=== PATIENT | female | born 1970 | race Caucasian/White ===

== ENCOUNTER 2021-09-22 17:43 | Emergency (ER) | payer BC, SELFPAY ==
[2021-09-22 17:43] VITALS: BP 165/82; PULSE 77; RESP 18; TEMP 35.7; O2SAT 97; BMI 44.2
--- NOTE | 2021-09-22 17:46 | RAD_ITS ---
STUDY: X-RAY - RIGHT SHOULDER REASON FOR EXAM: Female, 51 years old. FALL shoulder pain TECHNIQUE: 2 view(s) of the shoulder. COMPARISON: None. FINDINGS: Normal glenohumeral articulation. Normal acromioclavicular joint. Normal acromion. Normal humeral head and visualized proximal humerus. The soft tissue structures are unremarkable. Normal visualized pulmonary apex. RAD/Shoulder min 2 Views IMPRESSION: Normal x-ray examination of the shoulder. Electronically Signed: To Seo MD at 19:06 EST Tel , Service support ,
--- NOTE | 2021-09-22 18:21 | RAD_ITS ---
STUDY: X-RAY - RIGHT HUMERUS REASON FOR EXAM: Female, 51 years old. FALL TECHNIQUE: 2 view(s) of the humerus. COMPARISON: None. FINDINGS: Normal visualized humerus. There is no demonstrated fracture or osseous destructive process. There is no demonstrated soft tissue abnormality. RAD/Humerus min 2 Views IMPRESSION: Normal x-ray examination of the humerus. Electronically Signed: To Seo MD at 19:06 EST Tel , Service support ,
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
[2021-09-22 20:17] VITALS: PULSE 75; RESP 16; O2SAT 95
== END 2021-09-22 20:18 | disposition home or self-care (01) ==
PROVIDERS: Emergency Provider Emergency Medicine
DX: S40.021A Contusion of right upper arm, initial encounter (principal); W19.XXXA Unspecified fall, initial encounter
CPT/HCPCS: 73030; 73060; 99282

== ENCOUNTER → 2025-02-06 | Outpatient (CLI) | payer BC, SELFPAY ==
[2025-02-06 18:19] LABS: Absolute Lymphocyte Count 2.91 X10^3/uL (0.83-4.51); Absolute Neutrophil Count 4.9 X10^3/uL (2.0-7.7); Basophil# 0.04 X10^3/uL; Basophil% 0.5 % (0-1); Eosinophils% 2.3 % (0-5); Hematocrit 44.4 % (37-47); Hemoglobin 14.3 g/dL (12.0-15.0); Lymphocyte # 2.91 X10^3/ul (0.83-4.51); Lymphocyte % 33.7 % (19-41); Mean Corp Hgb Conc 32.2 g/dL (32-36); Mean Corpuscular Hgb 27.9 pg (27.0-32.0); Mean Corpuscular Volume 86.5 fL (81-99); Mean Platelet Vol. 10.3 fl (6.2-12.0); Monocyte# 0.56 X10^3/uL; Monocyte% 6.5 % (0-10); NRBC Flagged by Analyzer 0 % (0-5); Neutrophil % 56.8 % (47-70); Platelet Count 341 K/mm3 (150-450); RBC Distribution Width CV 13.4 % (11.6-14.6); RBC Distribution Width SD 42.1 fl (35.1-43.9); Red Blood Count 5.13 M/mm3 (4.2-5.4); White Blood Count 8.6 K/mm3 (4.4-11.0)
[2025-02-06 19:12] LABS: ALB/GLOB Ratio 1.2 RATIO (0.9-2.4); AST(SGOT) 17 U/L (<=31); Alanine Aminotransfer ALT/SGPT 18 U/L (<=34); Albumin, Serum 4.1 g/dL (3.5-5.0); Alkaline Phosphatase 81 U/L (35-104); Anion Gap 12 (5-15); BUN 12 mg/dL (4-19); BUN/Creat Ratio 18.9 RATIO (10-20); Carbon Dioxide 24.5 mmol/L (21.0-32.0); Chloride 101 mmol/L (98-108); Cholesterol 180 mg/dL (<=200); Creatinine, Serum 0.64 mg/dL (0.70-1.20); EST Glomerular Filtration Rate 104 (>60); Globulin 3.5 g/dL (2.2-4.2); Glucose 81 mg/dL (70-99); High Density Lipoprotein 52 mg/dL; Low Density Lipoprotein Calc. 104 mg/dL; Potassium 3.8 mmol/L (3.3-5.1); Protein, Total 7.7 g/dL (5.9-8.4); Sodium Level 138 mmol/L (133-145); Total Bilirubin 0.37 mg/dL (0.00-1.30); Triglycerides 122 mg/dL; Very Low Density Lipoprotein 24 mg/dL (5-40); cholesterol:hdl ratio screen 3.48
== END | disposition home or self-care (01) ==
LOC: MFPLAB 16:28
PROVIDERS: PCP Family Medicine; Referring Provider Family Medicine; Visit Provider Family Medicine
DX: R53.83 Other fatigue (principal); Z13.220 Encounter for screening for lipoid disorders; Z13.1 Encounter for screening for diabetes mellitus; K21.9 Gastro-esophageal reflux disease without esophagitis; R10.9 Unspecified abdominal pain
CPT/HCPCS: 36415; 80053; 80061; 84443; 85025

== ENCOUNTER → 2025-03-10 | Outpatient (CLI) | payer BC, SELFPAY ==
--- NOTE | 2025-03-10 15:00 | BI_ITS ---
EXAM: SCRN MAMM (CAD)W/LUZ ELENA BILAT DATE: 03/10/2025 CLINICAL HISTORY: F, Age 54 y/o , SCREENING BREAST CANCER RISK ASSESSMENT: Has not been calculated. TECHNIQUE: Bilateral screening digital breast tomosynthesis with 2D and 3D images. Computer aided detection. COMPARISON: Prior exam(s) dated 09/13/2019. FINDINGS: TISSUE DENSITY: The breast tissue is almost entirely fatty. Bilateral Breast Mammographic Findings: There are no suspicious masses, suspicious cluster of microcalcifications, architectural distortion or secondary signs of malignancy identified in either breast. Benign-appearing round microcalcifications are seen in both breasts. BI/SCRN MAMM (CAD)W/LUZ ELENA BILAT IMPRESSION: OVERALL FINAL ASSESSMENT: BIRADS 2 BENIGN FINDING RECOMMENDATION: Routine annual follow-up in 1 Year A letter with findings and recommendations will be mailed to the patient. Reading Location: [id number]
== END | disposition home or self-care (01) ==
LOC: OPBI 14:58
PROVIDERS: PCP Family Medicine; Referring Provider Family Medicine; Visit Provider Family Medicine
DX: Z12.31 Encounter for screening mammogram for malignant neoplasm of breast (principal)
CPT/HCPCS: 77063; 77067

== ENCOUNTER → 2025-03-23 | Outpatient (CLI) | payer BC, SELFPAY ==
[2025-03-23 13:17] LABS: HIV Nonreactive (Nonreactive); Hepatitis B Surface Antigen Nonreactive (Nonreactive); Hepatitis C Antibody Nonreactive (Nonreactive); Syphilis Antibodies Nonreactive (Nonreactive)
== END | disposition home or self-care (01) ==
LOC: MFPLAB 09:40
PROVIDERS: PCP Family Medicine; Referring Provider Family Medicine; Visit Provider Family Medicine
DX: Z00.00 Encounter for general adult medical examination without abnormal findings (principal)
CPT/HCPCS: 36415; 82652; 86703; 86780; 86803; 87340; 88175; G0145

== ENCOUNTER → 2025-04-19 | Outpatient (CLI) | payer BC, SELFPAY | END | disposition home or self-care (01) | LOC: LABSPEC 10:15 | PROVIDERS: PCP Family Medicine; Referring Provider Family Medicine; Visit Provider Family Medicine | DX: A59.01 Trichomonal vulvovaginitis (principal) | CPT/HCPCS: 87661 ==

== ENCOUNTER 2025-04-26 07:22 | Day surgery (SDC) | payer BC, SELFPAY ==
[2025-04-26] VITALS (8 sets, daily range): BP systolic 82–146; BP diastolic 40–81; PULSE 59–67; RESP 14–20; TEMP 36.3–36.4; O2SAT 96–98; BMI 48.8
--- OUTSIDE RECORDS SUMMARY | 2025-04-26 07:27 | XMS RPT_ITS | CCD ---
Author Organization [facility] Care Team Providers Care Speech Lang Path Name Role Phone LAI, EDER Unavailable Unavailable LAI, EDER Unavailable Unavailable LAI, EDER Unavailable Unavailable LAI, EDER Unavailable Unavailable PROVIDER, UNKNOWN Unavailable Unavailable PROVIDER, UNKNOWN Unavailable Unavailable PROVIDER, UNKNOWN Unavailable Unavailable Carmen Mcmahan Primary Care Provider [phone] Unavailable Primary Care Provider UnavailFrancesco Warner MD Primary Care Provider Francesco Diaz MD Primary Care Provider [phone] Francesco Diaz MD Primary Care Provider Beti Ivan MD Primary Care Provider Beti Ivan MD Attending Provider Beti Ivan MD Referring Provider Francesco Diaz MD Primary Care Provider Brooks ORTIZ.Yajaira LITTLEJOHN Unavailable Juany Whipple PA-C Unavailable [phone] Francesco Diaz MD Primary Care Provider [phone] SONIA VIZCARRA Referring Unavailable FRANCESCO DIAZ Primary Care Unavailable FRANCESCO DIAZ Referring Unavailable FRANCESCO DIAZ Primary Care Unavailable SONIA VIZCARRA Attending Unavailable FRANCESCO DIAZ Primary Care Unavailable Zhanna MONTE, Dr. Rubin Attending Provider [phone] Beti Ivan Referring Unavailable Marzena, Chalon Primary Care Unavailable Caryn Chao Attending Unavailable Caryn Chao Attending Unavailable Marzena, Chalon Referring Unavailable Marzena, Chalon Primary Care Unavailable Hipolito RM, Arti Attending Unavailable Marzena, Chalon Primary Care Unavailable MarzenaHannyon Attending Unavailable Marzena, Chalon Referring Unavailable Marzena, Chalon Primary Care Unavailable Marzena, Chalon Primary Care Unavailable Marzena, Chalon Attending Unavailable Marzena, Chalon Referring Unavailable RobotCaryn zuniga Attending Unavailable Marzena, Chalon Primary Care Unavailable Marzena, Chalon Primary Care Unavailable Marzena, Chalon Attending Unavailable Marzena, Chalon Referring Unavailable Marzena, Chalon Attending Unavailable Marzena, Chalon Referring Unavailable Marzena, Chalon Primary Care Unavailable Allergies Allergy Classification Reported Allergen(s) Allergy Type Date of Onset Reaction(s) Facility Pollen (2 sources) Pollen Substance Allergy 2 Other: See Comments [facility] (1 source) 05/07/17(+) MRSA WOUND; Translations: [05/07/17(+) MRSA WOUND] Propensity to adverse reactions (disorder) [facility] Repository (13 sources) Pollen; Translations: [POLLEN EXTRACTS] Drug Allergy 2 Other: See Comments [facility] Work Phone: (18 sources) Animal Dander; Translations: [ANIMAL DANDER] Drug Allergy 2 Other: See Comments [facility] Work Phone: Medications Current Medications Medication Drug Class(es) Dates Sig (Normalized) Sig (Original) cholecalciferol 0.25 mg oral capsule (2 sources) Vitamin D Start: 04-17-2025 take 1 capsule by mouth once daily Cholecalciferol (Vitamin D3) 250 mcg (10,000 unit) capsule Active 250 ug PO daily April 17, 2025 12:00am ergocalciferol 1.25 mg oral capsule (4 sources) Provitamin D2 Compound Start: 05-08-2024 take 1 capsule by mouth every week ergocalciferol 50,000 unit capsule (VITAMIN D2, DRISDOL) Indications: Vitamin D deficiency Take 1 capsule by mouth one time a week. 12 capsule 1 05/08/2024 Active ibuprofen 200 mg oral capsule (5 sources) Nonsteroidal Anti-inflammatory Drug take 1 capsule by mouth every six hours as needed Ibuprofen 200 mg cap Take 200 mg by mouth every 6 hours as needed. Active multivitamin tablet (5 sources) take 1 tablet by mouth once daily multivitamin tablet Take 1 tablet by mouth once daily. Active take 1 tablet by mouth once brent y multivitamin tablet Take 1 tablet by mouth once daily. 0 Active omeprazole 40 mg delayed release oral capsule (10 sources) Proton Pump Inhibitor Start: 01-23-2024 take 1 capsule by mouth once daily omeprazole (PRILOSEC) 40 mg capsule Indications: Gastroesophageal reflux disease without esophagitis Take 1 capsule by mouth once daily. 30 capsule 5 01/23/2024 Active Comment on above: Take 1 capsule by mo [facility] once daily. pantoprazole 40 mg delayed release oral tablet (2 sources) Proton Pump Inhibitor Start: 04-17-2025 take 1 tablet by mouth once daily Pantoprazole 40 mg tablet,delayed release (DR/EC) Active 40 mg PO daily April 17, 2025 12:00am phentermine hydrochloride 37.5 mg oral tablet (2 sources) Sympathomimetic Amine Anorectic Start: 04-17-2025 take 1 tablet by mouth once daily Phentermine 37.5 mg tablet Active 37.5 mg PO daily April 17, 2025 12:00am Completed/Discontinued Medications Medication Drug Class(es) Dates Sig (Normalized) Sig (Original) azelastine hydrochloride 0.137 mg/actuat / fluticasone propionate 0.05 mg/actuat metered dose nasal spray (6 sources) Corticosteroid, Histamine-1 Receptor Antagonist Start: 06-20-2023 End: 05-06-2024 take 1 spray(s) nasal route twice daily azelastine-flutica sone (DYMISTA) 137-50 mcg/spray spry Use 1 [place] in each nostril twice daily. 23 g 5 06/20/2023 05/06/2024 Discontinued Comment on above: Use 1 [place] in each nostril twice daily. meloxicam 15 mg oral tablet (5 sources) Nonsteroidal Anti-inflammatory Drug Start: 01-23-2024 End: 05-06-2024 take 1 tablet by mouth once daily at mealtime meloxicam (MOBIC) 15 mg tablet Take 1 tablet by mouth once daily. With food. 30 tablet 5 01/23/2024 05/06/2024 Discontinued Comment on above: [facility] With [facility]. montelukast 10 mg oral tablet (8 sources) Leukotriene Receptor Antagonist Start: 03-25-2023 End: 05-06-2024 take 1 tablet by mouth once daily at bedtime montelukast (SINGULAIR) 10 mg tablet Take 1 tablet by mouth daily at bedtime. 90 tablet 1 03/25/2023 05/06/2024 Discontinued Comment on above: Take 1 tablet by wilner daily at bedtime. Multivitamin capsule (1 source) take 1 capsule by mouth once daily Multivitamin capsule Take 1 capsule by mouth once daily. 0 Active Comment on above: Take 1 capsule by mo [facility] once daily. triamcinolone acetonide 0.001 mg/mg oral paste (8 sources) Corticosteroid Start: 03-25-2023 End: 05-06-2024 triamcinolone (KENALOG IN ORABASE) 0.1 % paste Apply to affected areas 2-3 times a day. 15 g 1 03/25/2023 05/06/2024 Discontinued Comment on above: Apply to affected ar eas 2-3 times a day. Problems Active Problems Problem Classification Problem Date Documented Date Episodic/Chronic Abdominal pain (2 sources) Left lower quadrant pain; Translations: [Left lower quadrant pain] 04-17-2025 Episodic Esophageal disorders (12 sources) Gastroesophageal reflux disease without esophagitis; Translations: [Gastro-esophageal reflux disease without esophagitis] Onset: 05-05-2024 01-23-2024 Chronic Malaise and fatigue (4 sources) Malaise and fatigue; Translations: [Other malaise] Onset: 05-07-2024 05-06-2024 Episodic Nutritional deficiencies (6 sources) Vitamin D deficiency; Translations: [Vitamin D deficiency, unspecified] Onset: 05-08-2024 05-08-2024 Chronic Other circulatory disease (1 source) Elevated blood-pressure reading without diagnosis of hypertension; Translations: [Elevated blood-pressure reading, without diagnosis of hypertension] 06-20-2023 Episodic Other infections; including parasitic (1 source) Trichomonal vulvovaginitis; Translations: [Trichomonal vulvovaginitis] Onset: 04-19-2025 Episodic Other nutritional; endocrine; and metabolic disorders (9 sources) Body mass index 40+ - severely obese; Translations: [Morbid (severe) obesity due to excess calories] Onset: 03-25-2023 03-25-2023 Chronic Other nutritional; endocrine; and metabolic disorders (7 sources) Severe obesity; Translations: [Morbid (severe) obesity due to excess calories] Onset: 03-25-2023 05-05-2024 Chronic Other nutritional; endocrine; and metabolic disorders (1 source) Morbid (severe) obesity due to excess calories; Translations: [Class 3 severe obesity with serious comorbidity and body mass index (BMI) of 45.0 to 49.9 in adult, unspecified obesity type (HCC)] Onset: 05-05-2024 Chronic Other nutritional; endocrine; and metabolic disorders (1 source) Body mass index (BMI) 45.0-49.9, adult; Translations: [Class 3 severe obesity with serious comorbidity and body mass index (BMI) of 45.0 to 49.9 in adult, unspecified obesity type (HCC)] Onset: 05-05-2024 Chronic Other nutritional; endocrine; and metabolic disorders (2 sources) Obesity; Translations: [Obesity, unspecified] 04-17-2025 Chronic Other screening for suspected conditions (not mental disorders or infectious disease) (20 sources) Patient encounter status; Translations: [Encounter for screening mammogram for malignant neoplasm of breast] Onset: 03-25-2023 03-25-2023 Episodic Other upper respiratory disease (14 sources) Seasonal allergy; Translations: [Other seasonal allergic rhinitis] Onset: 03-25-2023 03-25-2023 Chronic Residual codes; unclassified (2 sources) Family history of cancer of colon; Translations: [Family history of malignant neoplasm of digestive organs] 04-19-2025 Episodic Superficial injury; contusion (5 sources) Contusion of right upper arm, initial encounter; Translations: [Contusion of right upper extremity] 09-30-2021 Episodic Unclassified (3 sources) No additional problems on file Unclassified (1 source) Screening status; Translations: [Screening for chlamydial disease] Past or Other Problems Problem Classification Problem Date Documented Da te Episodic/Chronic Diseases of mouth; excluding dental (13 sources) Aphthous ulcer of mouth; Translations: [Recurrent oral aphthae] Onset: 03-25-2023 03-25-2023 Episodic Fracture of upper limb (9 sources) Closed fracture of right shoulder; Translations: [Fracture of right shoulder girdle, part unspecified, initial encounter for closed fracture] Onset: 12-11-2021 Resolved: 03-25-2023 12-11-2021 Episodic Other non-traumatic joint disorders (10 sources) Pain in right knee; Translations: [Pain in joint, lower leg] Onset: 05-05-2024 01-23-2024 Episodic Other non-traumatic joint disorders (1 source) Pain in left knee; Translations: [Pain in both knees, unspecified chronicity] Onset: 05-05-2024 Episodic Other skin disorders (15 sources) Mass of neck; Translations: [Localized swelling, mass and lump, neck] Onset: 03-25-2023 03-25-2023 Episodic Skin and subcutaneous tissue infections (3 sources) Cellulitis of abdominal wall; Translations: [Cellulitis of abdominal wall] Onset: 05-05-2017 Episodic Unclassified (5 sources) Patient encounter status; Translations: [Screening examination for STD (sexually transmitted disease)] 01-31-2025 Results Test Name Value Interpretation Reference Range Facility M8200.3000on 04-19-2025 M8200.3000 Trichomonas Vag DNA PCR Negative for Trichomonas vaginalis Normal [facility] Comment on above: Performed By: #### M 8200.3000 #### [facility] [address] [place], [address] Surgery Visit Reporton 04-17 Surgery Visit Report [facility] [address] [place] [address] OFFICE VISIT Date of Service: 04/17/25 MR#: [id number] Acct: [id number] Name: ADILENE KOO Rep #: [id number] : 1970 Provider: Dr. Caryn zuniga MD Age/Sex: 54/F Location: [facility] Status: Signed Intake Vital Signs 09/22/21 17:43 04/17/25 15:17 04/17/25 15:19 Height 5 ft 3 in 5 ft 3 in Weight: 284 lb BMI 50.3 BP 150/90 H Blood Pressure Location Rt brachial Position Sitting Respiration 16 Intake Visit Reasons: ADD EGD TO OA SCOPE Chief Complaint: EGD Department Manager Required: No Is patient in pain?: No Allergies animal dander Allergy (Mild, Verified 04/17/25 15:17) Other Medications ???Medication ???Instructions ???Recorded ???Confirmed ???Type cholecalciferol (vitamin D3) 250 250 mcg PO QDAY 04/17/25 04/17/25 History mcg (10,000 unit) capsule pantoprazole 40 mg tablet,delayed 40 mg PO QDAY 04/17/25 04/17/25 H istory release phentermine 37.5 mg tablet 37.5 mg PO QDAY 04/17/25 04/17/25 History Have you fallen in the past year?: No PFSH Medical History (Updated 04/19/25 @ 08:[address] Caryn Chao MD) Obesity LLQ abdominal pain Acid reflux Kidney stones Surgical History (Updated 04/17/25 @ 15:19 by Leanna Van) History of umbilical hernia repair S/P partial hysterectomy Social History (Updated 04/17/25 @ 15:19 by Leanna Van) Smoking Status: Never smoker alcohol intake: never HPI HPI HPI: 54-year-old female presents for EGD and colonoscopy. Patient states she has been on Protonix for the last 4 months denies any symptoms with that but before then was having burning up her esophagus. Patient has bowel movements daily denies any blood. Patient never had previous scope. Patient states she does get occasional left lower quadrant discomfort about once a week but describes it as a cramp that quickly resolves. Patient's dad did have colon cancer metastatic when found in his 70s, patient's dad also had prostate cancer, patient's mom had pancreatic cancer ROS General General: Yes weight change; No appetite, fatigue, colon cancer or breast cancer HEENT HEENT: Yes swollen glands; No difficulty swallowing, eye injury, eye surgery or hoarseness Endo Endocrine: No thyroid disease, diabetes mellitus, thyroid cancer, Hair loss, heat intolerance or cold intolerance Skin Skin: No rash or changing moles Musc Musculoskeletal: No back problems, arthritis, rheumatoid arthritis, gout or joint pain Cardio Cardiovascular: No murmur, pacemaker, heart disease, atrial fibrillation, high blood pressure, heart attack, heart stent, palpitations, shortness of breath with exertion or chest pain Psych Psychiatric: No depression, anxiety or hearing voices Resp Respiratory: No shortness of breath, No sleep apnea, No cough, No COPD, No asthma, No emphysema and No wheezing Gastro Gastrointestinal: Yes abdominal pain, No nausea or vomiting, No diarrhea, No constipation, No blood in stool, Yes acid reflux, No hemorrhoids, No ulcers, No gallbladder problem and No black,tarry stools Earl Hematologic: No blood thinners, No blood disorders, No bleeding, No anemia and No blood clots Neuro Neurologic: No numbness and No tingling Exam Const General: cooperative, healthy appearing, comfortable and no acute distress HENMT Head: normocephalic and atraumatic Neck Neck: supple Resp Effort Inspection: normal respiratory effort Cardio Rate: regular rate GI Inspection: non-distended Palpation: soft, no hernias and nontender Skin General: no rashes or lesions noted Neuro General: CN's II-XI intact bilaterally Extrem General: normal to inspection Psych Mental Status: mental status grossly normal Attitude: cooperative Assessment and Plan Assessment and Plan (1) Acid reflux: Status: Acute (2) Screening for malignant neoplasm of colon: Status: Acute (3) Family history of colon cancer in father: Status: Acute Plan Discussed with patient due to her family history of colon cancer we will plan for repeat colonoscopy in 5 years or less depending on initial colonoscopy. I have discussed the above with the patient. I have offered the patient esophagogastroduodenoscopy and colonoscopy for evaluation. I have explained the risks/benefits of the procedure and described the procedure. I have discussed the risks with the patient, including but not limited to: infection, bleeding, perforation of the GI tract requiring emergency surgery, inability to complete the procedure, injury to any internal organs, complications of anesthesia, etc. - the patient understands and agrees to proceed. I have answered all the patient's questions to the patient's satisfaction and the patient h (more content not included)... Normal [facility] PAP IG HPV HR APTIMAon 03-30 ADEQ Comment Normal . [facility] Comment on above: Order Comment: Speci men Comment: No. of containers..01 ThinPrep Vial Result Comment: Sati sfactory for evaluation. No endocervical component is identified. Partially obscuring thick areas are present. Performed By: #### L 500.4100, L500.4050, L100.0100, L501.9520 #### [facility] [address] [place], [address] COMM . Normal . [facility] Comment on above: Order Comment: Speci men Comment: No. of containers..01 ThinPrep Vial Performed By: #### L 500.4100, L500.4050, L100.0100, L501.9520 #### [facility] [address] [place], [place], [id number] COMMENT TNP Normal . [facility] Comment on above: Order Comment: Speci men Comment: No. of containers..01 ThinPrep Vial Result Comment: The Thin Prep(R) Orchid Hand was unable to read this specimen. Therefore a manual review was performed. Performed By: #### L 500.4100, L500.4050, L100.0100, L501.9520 #### [facility] [address] [place], [place], [id number] DIAG Comment Normal . [facility] Comment on above: Order Comment: Speci men Comment: No. of containers..01 ThinPrep Vial Result Comment: NEGA TIVE FOR INTRAEPITHELIAL LESION OR MALIGNANCY. Performed By: #### L 500.4100, L500.4050, L100.0100, L501.9520 #### [facility] [address] [place], [place], [id number] HPV APTIMA, HR Negative Normal Negative [facility] Comment on above: Order Comment: Speci men Comment: No. of containers..01 ThinPrep Vial Result Comment: This nucleic acid amplification test detects fourteen high- risk HPV types (16,18,31,33,35,39,45,51,52,56,58,59,66,68) without differentiation. Performed at: [address] [id number] Hr Consultant: Nuria Gil MD, Phone: [phone] Performed at: =[address] [id number] Hr Consultant: Nuria Gil MD, Phone: [phone] Performed By: #### L 500.4100, L500.4050, L100.0100, L501.9520 #### [facility] [address] [place], [address] PAPSMR Comment Normal . [facility] Comment on above: Order Comment: Speci men Comment: No. of containers..01 ThinPrep Vial Result Comment: The Pap smear is a screening test designed to aid in the detection of premalignant and malignant conditions of the uterine cervix. It is not a diagnostic procedure and should not be used as the sole means of detecting cervical cancer. Both false-positive and false-negative reports do occur. Performed By: #### L 500.4100, L500.4050, L100.0100, L501.9520 #### [facility] [address] [place], [address] PERFORM Comment Normal . [facility] Comment on above: Order Comment: Speci men Comment: No. of containers..01 ThinPrep Vial Result Comment: Valery Dias Account Retention Representative (ASCP) Performed By: #### L 500.4100, L500.4050, L100.0100, L501.9520 #### [facility] [address] [place], [address] Vitamin D 1,25-Dihydroxyon 0 03-28-2025 VIT D 1,25 DIHY 50.0 pg/mL Normal 24.8-81.5 [facility] Comment on above: Order Comment: Order Date: 02/17/25 Order Info: [id number] Result Comment: Perf ormed at: BN - [facility] [address] [id number] Hr Consultant: Shireen Gonzalez MD, Phone: [phone] Performed By: #### L 3300.0960 #### [facility] [address] [place], [place], [id number] Cervical or vagninal specime n microscopic examination by cytology stain (reported asOrdered By: Arti Mcmillan on 03-23-2025 Cytology report Cyto stain Doc (Cvx/Vag) Comment . [facility] Comment on above: The Pap smear is a s creening test designed to aid in thedetection of premalignant and malignant conditions of theuterine cervix. It is not a diagnostic procedure andshould not be used as the sole means of detecting cervicalcancer. Both false-positive and false-negative reports dooccur. Detection in cervical specim en of any of human papilloma virus (HPV) 16, 18, 31, 33,Ordered By: Arti Mcmillan on 03-23-2025 HPV 16+18+31+33+35+39+45+5 1+52+56+58+59+66+68 DNA Probe+sig amp Ql (Cvx) Negative Negative [facility] Comment on above: This nucleic acid am plification test detects fourteen high- risk HPV types (16,18,31,33,35,39,45,51,52,56,58,59,66,68)without differentiation.Performed at: - [facility] [id number] Director: Nuria Gil MD, Phone: [phone] at: =G - [facility] [id number] Director: Nuria Gil MD, Phone: [phone] HIVon 03-23-2025 HIV Non-Reactive Normal Nonreactive [facility] Comment on above: Result Comment: Non- Reactive Reactive Repeatedly reactive samples must be confirmed according to CDC recommended confirmatory algorithms. The subresults for either HIVAG or AHIV can be used as an aid in the selection of the confirmation algorithm for reactive samples. Send out specimens with Reactive results to [facility] for confirmation. Order the HIV antibody detection and differentiation: [id number] Performed By: #### L 509.8002, L3890.6301, L3890.6006, L3890.6102 #### [facility] [place], [address] Hepatitis C Antibodyon 03-23 Hepatitis C Ab Non-Reactive Normal Nonreactive [facility] Comment on above: Result Comment: Reac tive: Presumptive evidence of antibodies to HCV. Follow CDC recommendations for supplemental testing. Non-Reactive: Antibodies to HCV were not detected; does not exclude the possibility of exposure to HCV Reactive Results are presumptive evidence of antibodies to HCV. Follow CDC recommendations for supplemental testing. Order confirmation testing: HCV Quant by PCR testing - HCVPCR #[id number] Non Reactive: < 0.8 Equivocal: >/= 0.8 to < 1.0 Reactive: >/= 1.0 The CDC requires that a reactive/equivocal HCV antibody result be sent out for confirmation. HCV Quant by PCR testing. Performed By: #### L 500.4100, L500.4050, L100.0100, L501.9520 #### [facility] [address] [place], [address] L3890.6102on 03-23-2025 HEP B Surf Ag Non-Reactive Normal Nonreactive [facility] Comment on above: Result Comment: Reac tive: Presumptive evidence of HBV. Repeatedly reactive samples must be confirmed using a neutralization test ([facility] HBsAg Confirmatory Test) Non-Reactive: HBsAg not detected; does not exclude the possibility of exposure to HBV Performed By: #### L 500.4100, L500.4050, L100.0100, L501.9520 #### [facility] [address] [place], [place], [id number] Laboratory - CytologyOrdered By: Arti Mcmillan on 03-23-2025 Account Retention Representative Cyto stain Nom (Cvx/Vag) [ID] Comment . [facility] Comment on above: Ab Dias, Account Retention Representative (ASCP) Laboratory - Microbiology an d Antimicrobial susceptibilityOrdered By: Beti Ivan on 03-23-2025 HBV surface Ag Ql (S) Non-Reactive Nonreactive [facility] Comment on above: Reactive: Presumptiv e evidence of HBV. Repeatedly reactive samples must be confirmed using a neutralization test ([employer] HBsAg Confirmatory Test)Non-Reactive: HBsAg not detected; does not exclude the possibility of exposure to HBV Laboratory - Miscellaneous t estsOrdered By: rAti Mcmillan on 03-23-2025 Service comment (Unsp spec) [Interp] . . [facility] No Panel InformationOrdered By: Arti Mcmillan on 03-23-2025 Pap Smear Specimen Adequacy Comment . [facility] Comment on above: Satisfactory for aj luation. No endocervical component is identified.Partially obscuring thick areas are present. No Panel InformationOrdered By: Beti Ivan on 03-23-2025 HIV (1&2) Antibody Non-Reactive Nonreactive [facility] Comment on above: Non-ReactiveReactive Repeatedly reactive samples must be confirmed according to CDC recommended confirmatory algorithms. The subresults for either HIVAG or AHIV can be used as an aid in the selection of the confirmation algorithm for reactive samples.Send out specimens with Reactive results to [facility] for confirmation.Order the HIV antibody detection and differentiation: #[id number] Serum or plasma calcitriol m easurement (mass/volume)Ordered By: Beti Ivan on 03-23-2025 1,25-dihydroxyvitamin D3 [Mass/Vol] 50.0 pg/mL 24.8-81.5 [facility] Comment on above: Performed at: [address] [id number] Director: Shireen Gonzalez MD, Phone: [phone] Syphilis Antibodieson 2024 Syphilis Abs Non-Reactive Normal Nonreactive [facility] Comment on above: Performed By: #### L 509.8002, L3890.6301, L3890.6006, L3890.6102 #### [facility] [address] [place], [place], [id number] Breast imaging reportOrdered By: Ana Nieves on 03-13-2025 Study report [facility] Imaging Services [address] [place], [place] [address] SCRN MAMM (CAD)W/RONALDO BILAT MR#: [id number] Acct: [id number] Name: ADILENE KOO Rep #: [id number] : 1970 F 54 From: Jak Nieves DO PCP: Dr. Beti Ivan MD Status: REG CL I Study:SCRN MAMM (CAD)W/RONALDO BILAT Date of Exa m: 03/10/25 Exam# [id number] Ordering Dr: Kristie Ivan MD EXAM: SCRN MAMM (CAD)W/RONALDO BILAT DATE: 03/10/2025 CLINICAL HISTORY: F, Age 54 y/o , SCREENING BREAST CANCER RISK ASSESSMENT: Has not been calculated. TECHNIQUE: Bilateral screening digital breast tomosynthesis with 2D and 3D images. Computeraided detection. COMPARISON: Prior exam(s) dated 09/13/2019. FINDINGS: TISSUE DENSITY: The breast tissue is almost entirely fatty. Bilateral Breast Mammographic Findings: There are no suspicious masses, suspicious cluster of microcalcifications, architectural distortion or secondary signs of malignancy identified in either breast. Benign-appearing round microcalcifications are seen in both breasts. BI/SCRN MAMM (CAD)W/RONALDO BILAT IMPRESSION: OVERALL FINAL ASSESSMENT: BIRADS 2 BENIGN FINDING RECOMMENDATION: Routine annual follow-up in 1 Year A letter with findings and recommendations will be mailed to the patient. Reading Location: [facility] [facility] CC: Dr. Beti Ivan MD ~ Felt Machine Mechanic: Signed [facility] SCRN MAMM (CAD)W/RONALDO BILATo n 03-10-2025 SCRN MAMM (CAD)W/RONALDO BILAT [facility] Imaging Services [address] [place] [id number] SCRN MAMM (CAD)W/RONALDO BILAT MR#: [id number] Acct: [id number] Name: ADILENE KOO Rep #: [id number] : 1970 F 54 From: Ana Valentino PCP: Dr. Beti Ivan MD Status: REG CLI Study: SCRN MAMM (CAD)W/RONALDO BILAT Date of Exam: 07/27 Exam# [id number] Ordering Dr: Beti Ivan MD EXAM: SCRN MAMM (CAD)W/RONALDO BILAT DATE: 03/10/2025 CLINICAL HISTORY: F, Age 54 y/o , SCREENING BREAST CANCER RISK ASSESSMENT: Has not been calculated. TECHNIQUE: Bilateral screening digital breast tomosynthesis with 2D and 3D images. Computer aided detection. COMPARISON: Prior exam(s) dated 09/13/2019. FINDINGS: TISSUE DENSITY: The breast tissue is almost entirely fatty. Bilateral Breast Mammographic Findings: There are no suspicious masses, suspicious cluster of microcalcifications, architectural distortion or secondary signs of malignancy identified in either breast. Benign-appearing round microcalcifications are seen in both breasts. BI/SCRN MAMM (CAD)W/RONALDO BILAT IMPRESSION: OVERALL FINAL ASSESSMENT: BIRADS 2 BENIGN FINDING RECOMMENDATION: Routine annual follow-up in 1 Year A letter with findings and recommendations will be mailed to the patient. Reading Location: [facility] CC: Dr. Beti Ivan MD Felt Machine Mechanic: Signed Normal [facility] Absolute lymphocyte countOrd ered By: Beti Ivan on 02-06-2025 Lymphocytes Auto (Unsp spec) [#/Vol] 2.91 10*3/uL 0.83-4.51 [facility] Absolute neutrophil countOrd ered By: Beti Ivan on 02-06-2025 Neutrophils (Bld) [#/Vol] 4.9 10*3/uL 2.0-7.7 [facility] Anion gap in Serum or Plasma Ordered By: Beti Ivan on 02-06-2025 Anion gap [Moles/Vol] 12 mmol/L 5-15 [facility] Automated lymphocyte count a s percentage of total leukocytesOrdered By: Beti Ivan on 02-06-2025 Lymphocytes/100 WBC Auto (Unsp spec) 33.7 % 19-41 [facility] BUN/creatinine ratioOrdered By: Beti Ivan on 02-06-2025 Urea nitrogen/Creatinine [Mass ratio] 18.9 mg/mg 10-20 [facility] Basophil percentageOrdered B y: Beti Ivan on 02-06-2025 Basophils/100 WBC (Bld) 0.5 % 0-1 [facility] Bilirubin, totalOrdered By: Beti Ivan on 02-06-2025 Bilirubin [Mass/Vol] 0.37 mg/dL 0.00-1.30 [facility] CBC W/Diff, Automatedon 04-0 Absolute Lymph 2.91 X10 3/uL Normal 0.83-4.51 [facility] Comment on above: Performed By: #### L 500.4100, L500.4050, L100.0100, L501.9520 #### [facility] [address] [place], [address] Absolute Neut 4.9 X10 3/uL Normal 2.0-7.7 [facility] Comment on above: Performed By: #### L 500.4100, L500.4050, L100.0100, L501.9520 #### [facility] [address] [place], [address] Basophils/100 WBC (Bld) 0.5 % Normal 0-1 [facility] Comment on above: Performed By: #### L 500.4100, L500.4050, L100.0100, L501.9520 #### [facility] [address] [place], [address] Eosinophils/100 WBC (Bld) 2.3 % Normal 0-5 [facility] Comment on above: Performed By: #### L 500.4100, L500.4050, L100.0100, L501.9520 #### [facility] [address] [place], [address] Erythrocyte distribution width (RBC) [Ratio] 13.4 % Normal 11.6-14.6 [facility] Comment on above: Performed By: #### L 500.4100, L500.4050, L100.0100, L501.9520 #### [facility] [address] [place], [address] Hematocrit (Bld) [Volume fraction] 44.4 % Normal 37-47 [facility] Comment on above: Performed By: #### L 500.4100, L500.4050, L100.0100, L501.9520 #### [facility] [address] [place], [address] Hemoglobin (Bld) [Mass/Vol] 14.3 g/dL Normal 12.0-15.0 [facility] Comment on above: Performed By: #### L 500.4100, L500.4050, L100.0100, L501.9520 #### [facility] [address] [place], [address] IG% 0.200 Normal 0.0-0.9 [facility] Comment on above: Result Comment: IG% - Immature Granulocytes (promyelocytes, myelocytes and metamyelocytes) > 1% indicates that a LEFT SHIFT is Present. Performed By: #### L 500.4100, L500.4050, L100.0100, L501.9520 #### [facility] [address] [place], [address] Lymphocytes/100 WBC (Bld) 33.7 % Normal 19-41 [facility] Comment on above: Performed By: #### L 500.4100, L500.4050, L100.0100, L501.9520 #### [facility] [address] [place], [address] MCH (RBC) [Entitic mass] 27.9 pg Normal 27.0-32.0 [facility] Comment on above: Performed By: #### L 500.4100, L500.4050, L100.0100, L501.9520 #### [facility] [address] [place], [address] MCHC (RBC) [Mass/Vol] 32.2 g/dL Normal 32-36 [facility] Comment on above: Performed By: #### L 500.4100, L500.4050, L100.0100, L501.9520 #### [facility] [address] [place], [address] MCV (RBC) [Entitic vol] 86.5 fL Normal 81-99 [facility] Comment on above: Performed By: #### L 500.4100, L500.4050, L100.0100, L501.9520 #### [facility] [address] [place], [address] Monocytes/100 WBC (Bld) 6.5 % Normal 0-10 [facility] Comment on above: Performed By: #### L 500.4100, L500.4050, L100.0100, L501.9520 #### [facility] [address] [place], [address] Neutrophils/100 WBC (Bld) 56.8 % Normal 47-70 [facility] Comment on above: Performed By: #### L 500.4100, L500.4050, L100.0100, L501.9520 #### [facility] [address] [place], [address] Nucleated RBC (Bld) [#/Vol] 0 10*3/uL Normal 0-5 [facility] Comment on above: Performed By: #### L 500.4100, L500.4050, L100.0100, L501.9520 #### [facility] [address] [place], [address] Platelet mean volume (Bld) [Entitic vol] 10.3 fL Normal 6.2-12.0 [facility] Comment on above: Performed By: #### L 500.4100, L500.4050, L100.0100, L501.9520 #### [facility] [address] [place], [address] Platelets (Bld) [#/Vol] 341 10*3/uL Normal 150-450 [facility] Comment on above: Performed By: #### L 500.4100, L500.4050, L100.0100, L501.9520 #### [facility] [address] [place], [address] RBC (Bld) [#/Vol] 5.13 10*6/uL Normal 4.2-5.4 [facility] Comment on above: Performed By: #### L 500.4100, L500.4050, L100.0100, L501.9520 #### [facility] [address] [place], [address] RDW SD 42.1 fl Normal 35.1-43.9 [facility] Comment on above: Performed By: #### L 500.4100, L500.4050, L100.0100, L501.9520 #### [facility] [address] [place], [address] WBC (Bld) [#/Vol] 8.6 10*3/uL Normal 4.4-11.0 [facility] Comment on above: Performed By: #### L 500.4100, L500.4050, L100.0100, L501.9520 #### [facility] [address] [place], [address] Calculated very low density lipoprotein (VLDL) cholesterol measurementOrdered By: Beti Ivan on 02-06-2025 Calculated very low density lipoprotein (VLDL) cholesterol measurement 24 mg/dL 5-40 [facility] VLDL Cholesterol 24 mg/dL 5-40 [facility] Carbon dioxide, total [Moles /volume] in Central venous bloodOrdered By: Beti Ivan on 02-06-2025 CO2 [Moles/Vol] 24.5 mmol/L 21.0-32.0 [facility] Chloride assayOrdered By: Say Ivan on 02-06-2025 Chloride [Moles/Vol] 101 mmol/L 98-108 [facility] Comprehensive Metabolic Prof ilon 02-06-2025 Albumin [Mass/Vol] 4.1 g/dL Normal 3.5-5.0 [facility] Comment on above: Order Comment: VITD Performed By: #### L 500.4100, L500.4050, L100.0100, L501.9520 #### [facility] [address] [place], [address] Albumin/Globulin [Mass ratio] 1.2 {ratio} Normal 0.9-2.4 [facility] Comment on above: Order Comment: VITD Performed By: #### L 500.4100, L500.4050, L100.0100, L501.9520 #### [facility] [address] [place], [address] ALK PHOS 81 U/L Normal 35-104 [facility] Comment on above: Order Comment: VITD Performed By: #### L 500.4100, L500.4050, L100.0100, L501.9520 #### [facility] [address] [place], [address] ALT [Catalytic activity/Vol] 18 U/L Normal <=34 [facility] Comment on above: Order Comment: VITD Performed By: #### L 500.4100, L500.4050, L100.0100, L501.9520 #### [facility] [address] [place], [address] AST [Catalytic activity/Vol] 17 U/L Normal <=31 [facility] Comment on above: Order Comment: VITD Performed By: #### L 500.4100, L500.4050, L100.0100, L501.9520 #### [facility] [address] [place], [address] Bilirubin [Mass/Vol] 0.37 mg/dL Normal 0.00-1.30 [facility] Comment on above: Order Comment: VITD Performed By: #### L 500.4100, L500.4050, L100.0100, L501.9520 #### [facility] [address] [place], [address] BUN/CRE 18.9 RATIO Normal 10-20 [facility] Comment on above: Order Comment: VITD Performed By: #### L 500.4100, L500.4050, L100.0100, L501.9520 #### [facility] [address] [place], [address] Calcium [Mass/Vol] 10.0 mg/dL Normal 7.6-11.0 [facility] Comment on above: Order Comment: VITD Performed By: #### L 500.4100, L500.4050, L100.0100, L501.9520 #### [facility] [address] [place], [address] Chloride [Moles/Vol] 101 mmol/L Normal 98-108 [facility] Comment on above: Order Comment: VITD Performed By: #### L 500.4100, L500.4050, L100.0100, L501.9520 #### [facility] [address] [place], [address] CO2 [Moles/Vol] 24.5 mmol/L Normal 21.0-32.0 [facility] Comment on above: Order Comment: VITD Performed By: #### L 500.4100, L500.4050, L100.0100, L501.9520 #### [facility] [address] [place], [address] Creatinine [Mass/Vol] 0.64 mg/dL Low 0.70-1.20 [facility] Comment on above: Order Comment: VITD Performed By: #### L 500.4100, L500.4050, L100.0100, L501.9520 #### [facility] [address] [place], [address] GAP 12 Normal 5-15 [facility] Comment on above: Order Comment: VITD Performed By: #### L 500.4100, L500.4050, L100.0100, L501.9520 #### [facility] [address] [place], [address] GFR/1.73 sq M.predicted among non-blacks MDRD (S/P/Bld) [Vol rate/Area] 104 mL/min/{1.73_m2} Normal >60 [facility] Comment on above: Order Comment: VITD Result Comment: mL/m in/1.73m2 CKD-EPI Creatinine Equation (2020) Performed By: #### L 500.4100, L500.4050, L100.0100, L501.9520 #### [facility] [address] [place], [address] Globulin (S) [Mass/Vol] 3.5 g/dL Normal 2.2-4.2 [facility] Comment on above: Order Comment: VITD Performed By: #### L 500.4100, L500.4050, L100.0100, L501.9520 #### [facility] [address] [place], [address] Glucose [Mass/Vol] 81 mg/dL Normal 70-99 [facility] Comment on above: Order Comment: VITD Performed By: #### L 500.4100, L500.4050, L100.0100, L501.9520 #### [facility] [address] [place], [address] Potassium [Moles/Vol] 3.8 mmol/L Normal 3.3-5.1 [facility] Comment on above: Order Comment: VITD Performed By: #### L 500.4100, L500.4050, L100.0100, L501.9520 #### [facility] [address] [place], [address] Sodium [Moles/Vol] 138 mmol/L Normal 133-145 [facility] Comment on above: Order Comment: VITD Performed By: #### L 500.4100, L500.4050, L100.0100, L501.9520 #### [facility] [address] [place], [address] T PROT 7.7 g/dL Normal 5.9-8.4 [facility] Comment on above: Order Comment: VITD Performed By: #### L 500.4100, L500.4050, L100.0100, L501.9520 #### [facility] [address] [place], [address] Urea nitrogen [Mass/Vol] 12 mg/dL Normal 4-19 [facility] Comment on above: Order Comment: VITD Performed By: #### L 500.4100, L500.4050, L100.0100, L501.9520 #### [facility] [address] [place], [address] Eosinophil percentageOrdered By: Beti Ivan on 02-06-2025 Eosinophils/100 WBC (Bld) 2.3 % 0-5 [facility] Erythrocyte distribution wid th (RBC) [Ratio]Ordered By: Beti Ivan on 02-06-2025 Erythrocyte distribution width (RBC) [Entitic vol] 42.1 fL 35.1-43.9 [facility] Erythrocyte distribution wid th ratioOrdered By: Beti Ivan on 02-06-2025 Erythrocyte distribution width (RBC) [Ratio] 13.4 % 11.6-14.6 [facility] Erythrocyte distribution wid th standard deviationOrdered By: Beti Ivan on 02-06-2025 Erythrocyte distribution width (RBC) [Ratio] 42.1 fl 35.1-43.9 [facility] GFR/1.73 sq M.predicted sea g non-blacks MDRD (S/P/Bld) [Vol rate/Area]Ordered By: Beti Ivan on 02-06-2025 Estimated GFR (MDRD) Non-Af Amer 104 >60 [facility] Comment on above: mL/min/1.73m2 CKD-EP I Creatinine Equation (2020) Glomerular filtration rate ( GFR) estimation/1.73 sq m using serum, plasma, or whole bOrdered By: Beti Ivan on 02-06-2025 GFR/1.73 sq M.predicted among non-blacks MDRD (S/P/Bld) [Vol rate/Area] 104 mL/min/{1.73_m2} >60 [facility] Comment on above: mL/min/1.73m2 CKD-EP I Creatinine Equation (2020) Hematocrit Auto (Bld) [Volum e fraction]Ordered By: Beti Ivan on 02-06-2025 Hematocrit (Bld) [Volume fraction] 44.4 % 37-47 [facility] Hemoglobin measurementOrdere d By: Beti Ivan on 02-06-2025 Hemoglobin (Bld) [Mass/Vol] 14.3 g/dL 12.0-15.0 [facility] Immature granulocytes/100 WB C Auto (Bld)Ordered By: Beti Ivan on 02-06-2025 Immature granulocytes/100 WBC (Bld) 0.200 % 0.0-0.9 [facility] Comment on above: IG% - Immature Granu locytes (promyelocytes, myelocytes and metamyelocytes) > 1% indicates that a LEFT SHIFT is Present. LDL calc ser/plasOrdered By: Beti Ivan on 02-06-2025 Cholesterol in LDL [Mass/Vol] 104 mg/dL [facility] Comment on above: Fhapolfjoj=821-879 m g/dL & Higher Lrkq=424 mg/dL or greater LDL Cholesterol, Calculated 104 mg/dL [facility] Comment on above: Mfovzdqpsy=791-197 m g/dL & Higher Jlnp=901 mg/dL or greater Laboratory - Chemistry and C hemistry - challengeOrdered By: Beti Ivan on 02-06-2025 AST [Catalytic activity/Vol] 17 U/L <32 [facility] Lipid Profileon 02-06-2025 CHOL:HDL 3.48 Normal [facility] Comment on above: Performed By: #### L 500.4100, L500.4050, L100.0100, L501.9520 #### [facility] [address] [place], [address] Cholesterol [Mass/Vol] 180 mg/dL Normal <=200 [facility] Comment on above: Result Comment: Chol esterol level, Desirable <200 mg/dL Borderline high cholesterol 200-239 mg/dL High cholesterol >=240 mg/dL Recommendations of the NCEP Adult Treatment Panel for the following risk-cutoff thresholds for the [place] population. Performed By: #### L 500.4100, L500.4050, L100.0100, L501.9520 #### [facility] [address] [place], [address] Cholesterol in HDL [Mass/Vol] 52 mg/dL Normal [facility] Comment on above: Result Comment: [place] onal Cholesterol Education Program (NCEP) guidelines: <40 mg/dL: Low HDL-cholesterol (major risk factor for CHD) >= 60 mg/dL: High HDL-cholesterol (negative risk factor for CHD) HDL-cholesterol is affected by a number of factors, e.g. smoking, exercise, hormones, sex and age. Performed By: #### L 500.4100, L500.4050, L100.0100, L501.9520 #### [facility] [address] [place], [address] Cholesterol in LDL [Mass/Vol] 104 mg/dL Normal [facility] Comment on above: Result Comment: Bord xzscdg=384-929 mg/dL Higher Lmoj=258 mg/dL or greater Performed By: #### L 500.4100, L500.4050, L100.0100, L501.9520 #### [facility] [address] [place], [address] Cholesterol in VLDL [Mass/Vol] 24 mg/dL Normal 5-40 [facility] Comment on above: Performed By: #### L 500.4100, L500.4050, L100.0100, L501.9520 #### [facility] [address] [place], [address] Triglyceride [Mass/Vol] 122 mg/dL Normal [facility] Comment on above: Result Comment: The drugs N-Acetylcysteine and Metamizole may falsely depress this assay. Normal range: <150 mg/dL Borderline High: 150-199 mg/dL High: 200-499 mg/dL Very High: >500 mg/dL Performed By: #### L 500.4100, L500.4050, L100.0100, L501.9520 #### [facility] [address] [place], [address] Lymphocytes Auto (Unsp spec) [#/Vol]Ordered By: Beti Ivan on 02-06-2025 Lymphocytes (Bld) [#/Vol] 2.91 10*3/uL 0.83-4.51 [facility] Lymphocytes/100 WBC Auto (Un sp spec)Ordered By: Beti Ivan on 02-06-2025 Lymphocytes/100 WBC (Bld) 33.7 % 19-41 [facility] MCV (mean corpuscular volume ) determinationOrdered By: Beti Ivan on 02-06-2025 MCV (RBC) [Entitic vol] 86.5 fL 81-99 [facility] Mean corpuscular hemoglobin (MCH) determinationOrdered By: Beti Ivan on 02-06-2025 MCH (RBC) [Entitic mass] 27.9 pg 27.0-32.0 [facility] Mean corpuscular hemoglobin concentration (MCHC) determinationOrdered By: Beti Ivan on 02-06-2025 MCHC (RBC) [Mass/Vol] 32.2 g/dL 32-36 [facility] Mean platelet volume determi nationOrdered By: Beti Ivan on 02-06-2025 Platelet mean volume (Bld) [Entitic vol] 10.3 fL 6.2-12.0 [facility] Monocyte percentageOrdered B y: Beti Ivan on 02-06-2025 Monocytes/100 WBC (Bld) 6.5 % 0-10 [facility] Neutrophil percentageOrdered By: Beti Ivan on 02-06-2025 Neutrophils/100 WBC (Bld) 56.8 % 47-70 [facility] Nucleated red blood cell per centageOrdered By: Beti Ivan on 02-06-2025 Nucleated RBC/100 WBC (Bld) [Ratio] 0 % 0-5 [facility] Platelet countOrdered By: Say Ivan on 02-06-2025 Platelets (Bld) [#/Vol] 341 10*3/uL 150-450 [facility] Potassium (Unsp spec) [Mass/ Vol]Ordered By: Beti Ivan on 02-06-2025 Potassium [Moles/Vol] 3.8 mmol/L 3.3-5.1 [facility] Potassium measurement (mass/ volume)Ordered By: Beti Ivan on 02-06-2025 Potassium (Unsp spec) [Mass/Vol] 3.8 mmol/L 3.3-5.1 [facility] RBC Auto (Bld) [#/Vol]Ordere d By: Beti Ivan on 02-06-2025 RBC (Bld) [#/Vol] 5.13 10*6/uL 4.2-5.4 [facility] Screening total cholesterol/ high density lipoprotein (HDL) cholesterol ratioOrdered By: Beti Ivan on 02-06-2025 Cholesterol.total/Chol esterol in HDL [Mass ratio] 3.48 {ratio} [facility] Serum creatinine measurement (mass/volume)Ordered By: Beti Ivan on 02-06-2025 Creatinine [Mass/Vol] 0.64 mg/dL Low 0.70-1.20 [facility] Serum globulin measurementOr dered By: Beti Ivan on 02-06-2025 Globulin (S) [Mass/Vol] 3.5 g/dL 2.2-4.2 [facility] Serum glucose measurement (m ass/volume)Ordered By: Beti Ivan on 02-06-2025 Glucose [Mass/Vol] 81 mg/dL 70-99 [facility] Serum or plasma alanine rodriguez otransferase (ALT) measurementOrdered By: Beti Ivan on 02-06-2025 ALT [Catalytic activity/Vol] 18 U/L <35 [facility] Serum or plasma albumin maggie urement (mass/volume)Ordered By: Beti Ivan on 02-06-2025 Albumin [Mass/Vol] 4.1 g/dL 3.5-5.0 [facility] Serum or plasma albumin/glob ulin mass ratioOrdered By: Beti Ivan on 02-06-2025 Albumin/Globulin [Mass ratio] 1.2 {ratio} 0.9-2.4 [facility] Serum or plasma alkaline tay sphatase measurementOrdered By: Beti Ivan on 02-06-2025 ALP [Catalytic activity/Vol] 81 U/L 35-104 [facility] Serum or plasma calcium maggie urement (mass/volume)Ordered By: Beti Ivan on 02-06-2025 Calcium [Mass/Vol] 10.0 mg/dL 7.6-11.0 [facility] Serum or plasma cholesterol in HDL measurement (mass/volume)Ordered By: Beti Ivan on 02-06-2025 Cholesterol in HDL [Mass/Vol] 52 mg/dL >40 [facility] Comment on above: National Cholesterol Education Program (NCEP) guidelines:<40 mg/dL: Low HDL-cholesterol (major risk factor for CHD)>= 60 mg/dL: High HDL-cholesterol (negative risk factor for CHD)HDL-cholesterol is affected by a number of factors, e.g. smoking, exercise, hormones, sex and age. Serum or plasma cholesterol measurement (mass/volume)Ordered By: Beti Ivan on 02-06-2025 Cholesterol [Mass/Vol] 180 mg/dL <201 [facility] Comment on above: Cholesterol level, D esirable <200 mg/dLBorderline high cholesterol 200-239 mg/dLHigh cholesterol >=240 mg/dLRecommendations of the NCEP Adult Treatment Panel for the following risk-cutoff thresholds for the [place] population. Serum or plasma urea nitroge n measurement (mass/volume)Ordered By: Beti Ivan on 02-06-2025 Urea nitrogen [Mass/Vol] 12 mg/dL 4-19 [facility] Sodium levelOrdered By: Hanny Ivan on 02-06-2025 Sodium [Moles/Vol] 138 mmol/L 133-145 [facility] TSH DL <= 0.005 mIU/L QnOrde red By: Beti Ivan on 02-06-2025 Thyroid Stimulating Hormone (TSH) 2.620 uIU/mL 0.300-4.200 [facility] TSH Qn 2.620 uIU/mL 0.300-4.200 [facility] Thyroid Stim Hormone (TSH)on 02-06-2025 TSH 2.620 uIU/mL Normal 0.300-4.200 [facility] Comment on above: Performed By: #### L 500.4100, L500.4050, L100.0100, L501.9520 #### [facility] [place], [address] Total proteinOrdered By: Kristie Ivan on 02-06-2025 Protein [Mass/Vol] 7.7 g/dL 5.9-8.4 [facility] Triglycerides measurementOrd ered By: Beti Ivan on 02-06-2025 Triglyceride [Mass/Vol] 122 mg/dL <199 [facility] Comment on above: The drugs N-Acetylcy steine and Metamizole may falsely depress this assay. Normal range: <150 mg/dLBorderline High: 150-199 mg/dLHigh: 200-499 mg/dLVery High: >500 mg/dL White blood cell (WBC) count Ordered By: Beti Ivan on 02-06-2025 WBC (Bld) [#/Vol] 8.6 10*3/uL 4.4-11.0 [facility] CNPNon 06-05-2024 C[facility]N Telephone [facility] -- ADILENE KOO ([id number]) 1970 F Date Time Provider Department 06/05/24 FRANCESCO DIAZ [facility] During your visit today, we recorded the following information about you: Francesco Diaz MD 06/05/2024 9:55 PM Signed Let patient know her knee x-rays show some mild arthritis otherwise no acute issues. Marcella Oglesby MA 06/06/2024 8:35 AM Signed Left message for patient to contact office. PRAVIN [place] Amanda, RN 06/06/2024 10:44 AM Signed Pt called and is notified of providers results. Pt voices understanding. She reports when she first get us in the morning or stands up from sitting she is really stiff and limping until she loosens up. She reports her mobility when she goes from side to side is really weak. She states her grand baby pushed on her calf this weekend and it really hurt. Pt states it's on the outside of her right knee that hurts and like a hook under the knee cap. Please advise on what Pt can do for this. NESS Dalton Jeffrey A, MD 06/06/2024 12:51 PM Signed Advise patient that I placed an order for PHYSICAL THERAPY back in December at the same time the x-ray she finally did was ordered. She should do the PHYSICAL THERAPY. Marcella Oglesby MA 06/06/2024 3:25 PM Signed Left message for patient to contact office. PRAVIN Madrid Krystle, RN 06/06/2024 4:22 PM Signed Patient returns call and below message given. Patient verbalizes understanding but declines scheduling at this time. She reports she will work on exercises herself and wearing a brace. Kim Zavala RN Allergies As of Date: 06/05/2024 Noted Allergy Reaction ANIMAL DANDER 11/21/2021 14 - Other: See Comments Comments: sneezing and stuffy nose POLLEN EXTRACTS 11/21/2021 14 - Other: See Comments Comments: sneezing Date Reviewed: 05/06/2024 Reviewed by: Sonia Vizcarra APRN.[employer] - Fully Assessed Reason for Visit: Results [95] Prescriptions as of 06/06/2024 - ergocalciferol 50,000 unit capsule (VITAMIN D2, DRISDOL) Take 1 capsule by mouth one time a week. - multivitamin tablet Take 1 tablet by mouth once daily. - Ibuprofen 200 mg cap Take 200 mg by mouth every 6 hours as needed. - omeprazole (PRILOSEC) 40 mg capsule Take 1 capsule by mouth once daily. Problem List As Of Date 06/05/2024 Noted Resolved Closed fracture of right shoulder [S42.91XA] 12/11/2021 03/25/2023 Seasonal allergies [J30.2] 03/25/2023 Encounter for gynecological examination [Z01.41*03/25/2023 Encounter for screening mammogram for breast ca*03/25/2023 Screening for colon cancer [Z12.11] 03/25/2023 Well adult exam [Z00.00] 03/25/2023 Neck mass [R22.1] 03/25/2023 Aphthae, ulcer oral [K12.0] 03/25/2023 Class 3 severe obesity with serious comorbidity*03/25/2023 Encounter for screening for diabetes mellitus [*03/25/2023 Gastroesophageal reflux disease without esophag*05/05/2024 Pain in both knees [M25.561, M25.562] 05/05/2024 Vitamin D deficiency [E55.9] 05/08/2024 Encounter Status:Closed by KIM ZAVALA on 06/06/24 Normal [facility] XR Knee - bilateral 4 Viewso n 06-05-2024 IMPRESSION: Minimal degenerative change. Felt Machine Mechanic: [place] Transcribe Date/Time: Jun 05 2024 10:05A Dictated by : SHAYLEE AHUJA MD This examination was interpreted and the report reviewed and electronically signed by: SHAYLEE AHUJA MD on Jun 05 2024 10:06AM [facility] DIVISION OF RADIOLOGY * * *Final Report* * * DATE OF EXAM: Jun 03 2024 4:12PM WOX [id number] - XR KNEE 4V AP/PA/LAT/MERCH PEPPER / PROCEDURE REASON: multiple diagnoses * * * * Physician Interpretation * * * * EXAMINATION: XR KNEE 4V AP/PA/LAT/MERCH PEPPER HISTORY: Posterior right knee pain x 5 months with stiffness after feeling a pop while kneeling. Pain in both knees, unspecified chronicity Pain in both knees, unspecified chronicity . TECHNIQUE: XR KNEE 4V AP/PA/LAT/MERCH PEPPER Laterality: BILATERAL Number of different views (projections): 4 M: XB_1 COMPARISON: RESULT: Minimal narrowing in the medial compartments greater on the right. Joint spaces appear otherwise maintained. Small marginal osteophytes. No significant joint effusion. No acute fracture or dislocation. There are no bony erosions. DIVISION OF RADIOLOGY Provider, [facility] Zehra Alex - 06/05/2024 * * *Final Report* * * DATE OF EXAM: Jun 03 2024 4:12PM WOX [id number] - XR KNEE 4V AP/PA/LAT/MERCH PEPPER / PROCEDURE REASON: multiple diagnoses * * * * Physician Interpretation * * * * EXAMINATION: XR KNEE 4V AP/PA/LAT/MERCH PEPPER HISTORY: Posterior right knee pain x 5 months with stiffness after feeling a pop while kneeling. Pain in both knees, unspecified chronicity Pain in both knees, unspecified chronicity . TECHNIQUE: XR KNEE 4V AP/PA/LAT/MERCH PEPPER Laterality: BILATERAL Number of different views (projections): 4 M: XB_1 COMPARISON: RESULT: Minimal narrowing in the medial compartments greater on the right. Joint spaces appear otherwise maintained. Small marginal osteophytes. No significant joint effusion. No acute fracture or dislocation. There are no bony erosions. IMPRESSION IMPRESSION: Minimal degenerative change. Felt Machine Mechanic: L[place]ON Transcribe Date/Time: Jun 05 2024 10:05A Dictated by : SHAYLEE AHUJA MD This examination was interpreted and the report reviewed and electronically signed by: SHAYLEE AHUJA MD on Jun 05 2024 10:06AM EST [facility] XR Knee - bilateral 4 ViewsO rdered By: [facility] Provider on 06-05-2024 [facility] XR KNEE 4V AP/PA/LAT/MERCH B ILon 06-03-2024 XR KNEE 4V AP/PA/LAT/MERCH PEPPER * * *Final Report* * * DATE OF EXAM: Jun 03 2024 4:12PM WOX [id number] - XR KNEE 4V AP/PA/LAT/MERCH PEPPER / PROCEDURE REASON: multiple diagnoses * * * * Physician Interpretation * * * * EXAMINATION: XR KNEE 4V AP/PA/LAT/MERCH PEPPER HISTORY: Posterior right knee pain x 5 months with stiffness after feeling a pop while kneeling. Pain in both knees, unspecified chronicity Pain in both knees, unspecified chronicity . TECHNIQUE: XR KNEE 4V AP/PA/LAT/MERCH PEPPER Laterality: BILATERAL Number of different views (projections): 4 M: XB_1 COMPARISON: RESULT: Minimal narrowing in the medial compartments greater on the right. Joint spaces appear otherwise maintained. Small marginal osteophytes. No significant joint effusion. No acute fracture or dislocation. There are no bony erosions. IMPRESSION: Minimal degenerative change. Felt Machine Mechanic: L[place]ON Transcribe Date/Time: Jun 05 2024 10:05A Dictated by : SHAYLEE AHUJA MD This examination was interpreted and the report reviewed and electronically signed by: SHAYLEE AHUJA MD on Jun 05 2024 10:06AM EST [id number] Normal [facility] XR Knee - bilateral 4 Viewso n 06-03-2024 Radiology Study observation (narrative) [facility] 25(OH)D3 SerPl-mCncon 2023 25-hydroxyvitamin D3 [Mass/Vol] 23.3 ng/mL Low 31.0-80.0 [facility] Comment on above: Order Comment: Fabiana chan Type: BLOOD SPECIMEN Ordering Facility: [facility] Address: [address] [place] [address] Result Comment: Clas sification of 25 [place] Vitamin D status: Deficiency/Insufficiency: < or = 30 ng/ml. Sufficiency/Optimal Levels: 31-80 ng/mL Toxicity: > 100 ng/mL. Test performed by chemiluminescent immunoassay. Performed By: #### 1 989-3 #### [facility] CLIA [id number] [address] [place] [address] [place] CBC panel Auto (Bld)on 05-07 Erythrocyte distribution width (RBC) [Ratio] 12.6 % Normal 11.5-15.0 [facility] Comment on above: Order Comment: Fabiana chan Type: BLOOD SPECIMEN Ordering Facility: [facility] Address: [address] [place] [address] Performed By: #### 5 8410-2 #### [facility] CLIA [id number] [address] [place] [address] [place] Hematocrit (Bld) [Volume fraction] 47.4 % High 36.0-46.0 [facility] Comment on above: Order Comment: Fabiana chan Type: BLOOD SPECIMEN Ordering Facility: [facility] Address: [address] [place] [address] Performed By: #### 5 8410-2 #### [facility] CLIA [id number] [address] [place] [address] [place] Hemoglobin (Bld) [Mass/Vol] 14.6 g/dL Normal 11.5-15.5 [facility] Comment on above: Order Comment: Speci men Type: BLOOD SPECIMEN Ordering Facility: [facility] Address: [address] [place] [address] Performed By: #### 5 8410-2 #### [facility] CLIA [id number] [address] [place] [address] [place] MCH (RBC) [Entitic mass] 27.2 pg Normal 26.0-34.0 [facility] Comment on above: Order Comment: Speci men Type: BLOOD SPECIMEN Ordering Facility: [facility] Address: [address] [place] [address] Performed By: #### 5 8410-2 #### [facility] CLIA [id number] [address] [place] [address] [place] MCHC (RBC) [Mass/Vol] 30.8 g/dL Normal 30.5-36.0 [facility] Comment on above: Order Comment: Speci men Type: BLOOD SPECIMEN Ordering Facility: [facility] Address: [address] [place] [address] Performed By: #### 5 8410-2 #### [facility] CLIA [id number] [address] [place] [address] [place] MCV (RBC) [Entitic vol] 88.4 fL Normal 80.0-100.0 [facility] Comment on above: Order Comment: Speci men Type: BLOOD SPECIMEN Ordering Facility: [facility] Address: [address] [place] [address] Performed By: #### 5 8410-2 #### [facility] CLIA [id number] [address] [place] [address] [place] Nucleated RBC (Bld) [#/Vol] 10*3/uL Normal <0.01 [facility] Comment on above: Order Comment: Speci men Type: BLOOD SPECIMEN Ordering Facility: [facility] Address: [address] [place] [address] Performed By: #### 5 8410-2 #### [facility] CLIA [id number] [address] [place] [address] [place] Platelet mean volume (Bld) [Entitic vol] 10.6 fL Normal 9.0-12.7 [facility] Comment on above: Order Comment: Speci men Type: BLOOD SPECIMEN Ordering Facility: [facility] Address: [address] [place] [address] Performed By: #### 5 8410-2 #### [facility] CLIA [id number] [address] [place] [address] [place] Platelets (Bld) [#/Vol] 304 10*3/uL Normal 150-400 [facility] Comment on above: Order Comment: Speci men Type: BLOOD SPECIMEN Ordering Facility: [facility] Address: [address] [place] [address] Performed By: #### 5 8410-2 #### [facility] CLIA [id number] [address] [place] [address] [place] RBC (Bld) [#/Vol] 5.36 10*6/uL High 3.90-5.20 [facility] Comment on above: Order Comment: Speci men Type: BLOOD SPECIMEN Ordering Facility: [facility] Address: [address] [place] [address] Performed By: #### 5 8410-2 #### [facility] CLIA [id number] [address] [place] [address] [place] WBC (Bld) [#/Vol] 7.51 10*3/uL Normal 3.70-11.00 [facility] Comment on above: Order Comment: Speci men Type: BLOOD SPECIMEN Ordering Facility: [facility] Address: [address] [place] [address] Performed By: #### 5 8410-2 #### [facility] CLIA [id number] [address] [place] [address] [place] Comprehensive metabolic 2000 panelon 05-07-2024 Albumin [Mass/Vol] 3.9 g/dL Normal 3.9-4.9 [facility] Comment on above: Order Comment: Speci men Type: BLOOD SPECIMEN Ordering Facility: [facility] Address: [address] [place] [address] Performed By: #### 2 4323-8, 3016-3 #### [facility] CLIA [id number] [address] [place] [address] [place] ALP [Catalytic activity/Vol] 80 U/L Normal 34-123 [facility] Comment on above: Order Comment: Speci men Type: BLOOD SPECIMEN Ordering Facility: [facility] Address: [address] [place] [address] Performed By: #### 2 4323-8, 3016-3 #### [facility] CLIA [id number] [address] [place] [address] [place] ALT [Catalytic activity/Vol] 15 U/L Normal 7-38 [facility] Comment on above: Order Comment: Speci men Type: BLOOD SPECIMEN Ordering Facility: [facility] Address: [address] [place] [address] Performed By: #### 2 4323-8, 3016-3 #### [facility] CLIA [id number] [address] [place] [address] [place] Anion gap [Moles/Vol] 11 mmol/L Normal 8-15 [facility] Comment on above: Order Comment: Speci men Type: BLOOD SPECIMEN Ordering Facility: [facility] Address: [address] [place], [place] [address] Performed By: #### 2 4323-8, 3016-3 #### [facility] CLIA [id number] [address] [place], [place] [id number] [place] AST [Catalytic activity/Vol] 19 U/L Normal 13-35 [facility] Comment on above: Order Comment: Speci men Type: BLOOD SPECIMEN Ordering Facility: [facility] Address: [address] [place] [address] Performed By: #### 2 4323-8, 3016-3 #### [facility] CLIA [id number] [address] [place] [address] [place] Bilirubin [Mass/Vol] 0.5 mg/dL Normal 0.2-1.[address] [facility] Comment on above: Order Comment: Speci men Type: BLOOD SPECIMEN Ordering Facility: [facility] Address: [address] [place] [address] Performed By: #### 2 4323-8, 6-3 #### [facility] CLIA [id number] [address] [place] [address] [place] Calcium [Mass/Vol] 9.6 mg/dL Normal 8.5-10.2 [facility] Comment on above: Order Comment: Speci men Type: BLOOD SPECIMEN Ordering Facility: [facility] Address: [address] [place] [address] Performed By: #### 2 4323-8, 6-3 #### [facility] CLIA [id number] [address] [place] [address] [place] Chloride [Moles/Vol] 104 mmol/L Normal 98-[address] [facility] Comment on above: Order Comment: Speci men Type: BLOOD SPECIMEN Ordering Facility: [facility] Address: [address] [place] [address] Performed By: #### 2 4323-8, 3016-3 #### [facility] CLIA [id number] [address] [place] [address] [place] CO2 [Moles/Vol] 25 mmol/L Normal 22-30 [facility] Comment on above: Order Comment: Speci men Type: BLOOD SPECIMEN Ordering Facility: [facility] Address: [address] [place] [address] Performed By: #### 2 4323-8, 6-3 #### [facility] CLIA [id number] [address] [place] [address] [place] Creatinine [Mass/Vol] 0.70 mg/dL Normal 0.58-0.96 [facility] Comment on above: Order Comment: Speci men Type: BLOOD SPECIMEN Ordering Facility: [facility] Address: [address] [place] [address] Performed By: #### 2 4323-8, 3015-3 #### [facility] CLIA [id number] [address] [place] [address] [place] Creatinine and Glomerular filtration rate.predicted panel (S/P/Bld) 103 mL/min/1.73m??? Normal >=60 [facility] Comment on above: Order Comment: Speci men Type: BLOOD SPECIMEN Ordering Facility: [facility] Address: [address] [place] [address] Result Comment: Sara mated Glomerular Filtration Rate (eGFR) is calculated using the 2020 CKD-EPI creatinine equation. This equation utilizes serum creatinine, sex, and age as parameters. The creatinine assay has traceable calibration to isotope dilution-mass spectrometry. Refer to KDIGO guidelines for clinical interpretation. In patients with unstable renal function, e.g. those with acute kidney injury, the eGFR may not accurately reflect actual GFR. Performed By: #### 2 4323-8, 6-3 #### [facility] CLIA [id number] [address] [place] [address] [place] Glucose [Mass/Vol] 92 mg/dL Normal 74-99 [facility] Comment on above: Order Comment: Speci men Type: BLOOD SPECIMEN Ordering Facility: [facility] Address: [address], [place] [address] Result Comment: The [place] Diabetes Association (ADA) provides guidance for cutoff values for fasting glucose and random glucose. The ADA defines fasting as no caloric intake for at least 8 hours. Fasting plasma glucose results between 100 to 125 mg/dL indicate increased risk for diabetes (prediabetes). Fasting plasma glucose results greater than or equal to 126 mg/dL meet the criteria for diagnosis of diabetes. In the absence of unequivocal hyperglycemia, results should be confirmed by repeat testing. In a patient with classic symptoms of hyperglycemia or hyperglycemic crisis, random plasma glucose results greater than or equal to 200 mg/dL meet the criteria for diagnosis of diabetes. Reference: Standards of Medical Care in Diabetes 2016, [place] Diabetes Association. Diabetes Care. 2016.39(Suppl 1). Performed By: #### 2 4323-8, 3016-3 #### [facility] CLIA [id number] [address] [place] [address] [place] Potassium [Moles/Vol] 4.7 mmol/L Normal 3.7-5.1 [facility] Comment on above: Order Comment: Speci men Type: BLOOD SPECIMEN Ordering Facility: [facility] Address: [address] [place] [address] Performed By: #### 2 4323-8, 3016-3 #### [facility] CLIA [id number] [address] [place] [address] [place] Protein [Mass/Vol] 7.1 g/dL Normal 6.3-8.0 [facility] Comment on above: Order Comment: Speci men Type: BLOOD SPECIMEN Ordering Facility: [facility] Address: [address] [place], [place] [address] Performed By: #### 2 4323-8, 3016-3 #### [facility] CLIA [id number] [address] [place] [address] [place] Sodium [Moles/Vol] 140 mmol/L Normal 136-144 [facility] Comment on above: Order Comment: Speci men Type: BLOOD SPECIMEN Ordering Facility: [facility] Address: [address] [place] [address] Performed By: #### 2 4323-8, 3016-3 #### [facility] CLIA [id number] [address] [place] [address] [place] Urea nitrogen [Mass/Vol] 13 mg/dL Normal 7-21 [facility] Comment on above: Order Comment: Speci men Type: BLOOD SPECIMEN Ordering Facility: [facility] Address: [address] [place] [address] Performed By: #### 2 4323-8, 3016-3 #### [facility] CLIA [id number] [address] [place] [address] [place] Insulin SerPl-aCncon 024 Insulin Qn 12.0 u[IU]/mL Normal 3.0-25.0 [facility] Comment on above: Order Comment: Speci men Type: BLOOD SPECIMEN Ordering Facility: [facility] Address: [address] [place] [address] Performed By: #### 2 0448-7 #### [facility] CLIA [id number] [address] [place] [address] [place] TSH SerPl-aCncon 05-07-2024 TSH Qn 1.980 m[IU]/L Normal 0.270-4.200 [facility] Comment on above: Order Comment: Speci men Type: BLOOD SPECIMEN Ordering Facility: [facility] Address: [address] [place] [address] Performed By: #### 2 4323-8, 3016-3 #### [facility] CLIA [id number] [address] [place] [address] [place] CNOVon 05-06-2024 CNOV Office Visit (OBGYWM ) -- ADILENE KOO ([id number]) 1970 F Date Time Provider Department 05/06/24 1:00 PM SONIA VIZCARRA During your visit today, we recorded the following information about you: Blood pressure Weight Height 138/70 129.2 kg 1.575 m Sonia Vizcarra APRN.[facility] 05/06/2024 2:09 PM Addendum Weight Management: You have taken the initiative to become a healthier version of yourself and to decrease the risks that come with the diagnosis of obesity or being overweight. We are happy to help you along this journey but know this is a lifetime commitment to yourself. Losing just 3-10 % of your body weight can decrease your risks of many other serious diseases like diabetes, heart disease, osteoarthritis, hypertension, cancer and so many others. During this time you will have triumphs, setbacks and plateaus- your body will fight against you but we are here to give you the tools and the resources to continue to reach your goals. We recommend during this time that you track your weight daily or at least five times per week as well as tracking your nutrition. You may track your activity but do not use hitting your fitness goals as a reward system as this can derail your success. We recommend weekly physical activity of 150-200 min/week-although physical exercise, this will be especially important for weight maintenance. Exercise can have many other benefits including improving insulin resistance, improving balance, bone health, improving mental health and cardiovascular health. Do not feel overwhelmed - we will discuss this more at your visits. Our time will be limited with each visit but we will try to touch on factors that are important to you and to your overall goals. We will try to set a goal at the end of each visit and then decide on what we want to accomplish with your upcoming visits. On your After Visit Summary (AVS), we will provide you with information that may be useful during this journey so please remember to read the information given. Check your AVS a few days after your appointment because we may have added more information specifically for you. Remember that if you are placed on medications, they are tools that can help you succeed but you must put in the work. Your nutrition will be the main factor. There are medications that work well for some and not for others- so it may take time to find the right combination for your body's needs. Please remember that factors such as other health co-morbidities one might have, as well as insurance coverage, will play a factor in determining which medications you can take. Most of the newer medications that are all the craze ,injectables, may not be covered or will only be covered if you fail months of oral medications or have Type 2 diabetes so please be patient with the process. It would be beneficial for you to determine what your insurance covers as far as Anti-Obesity Medications (AOMs), Nutritional Counseling, behavioral intervention and weight loss surgery. Please call your health insurance prior to your first appointment and write down coverage for each of those therapies. Most importantly, remember that ultimately our goal is to help you get to a healthier weight which will decrease your overall health risks. We will work together as a team and try to reach your personalized goals as well. Follow-up appointments Please arrive to follow-up visits a minimum of 15 minutes prior to your appointment. Follow-up weight management visits can be virtual. You will need to report a current blood pressure, heart rate (pulse) and weight at the beginning of each virtual appointment so you will need to have a reliable BP cuff, either wrist or upper arm. If you need to reschedule your appointment time or switch from an in-office visit to a virtual visit or vice versa, you need to call our office as we have designated appointment slots. This should not be done on [facility] as you will not be scheduled appropriately and will need to be rescheduled. We appreciate that you have entrusted us with your health and know that we are committed to this process with you. Sincerely, Deanna Leger MD, SARAH, RAJ AND Sonia Vizcarra CNP Advanced Education from the Obesity Medicine Association Obesity Obesity is a disease that affects nearly one-third of the adult [place] population (approximately 60 million). The number of overweight and obese Americans has continued to increase since 1960, a trend that is not slowing down. Today, 64.5 percent of adult Americans (about 127 million) are categorized as being overweight or obese. Each year, obesity causes at least 300,000 excess deaths in the [place] and healthcare costs of [place] adults with obesity amount to approximately $100 billion. (AOA) Obesity is a complex, multi-factorial chronic disea (more content not included)... Normal [facility] Florian 05-04-2024 ANNETTAN Telephone (BOSSMAN) -- ADILENE KOO ([id number]) 1970 F Date Time Provider Department 05/04/24 SONIA VIZCARRA During your visit today, we recorded the following information about you: Sonia Vizcarra APRN.[facility] 05/04/2024 1:05 PM Signed Left message to call office regarding weight management billing. 05/04/2024 1:05 PM Sonia Vizcarra APRN.[employer] Allergies As of Date: 05/04/2024 Noted Allergy Reaction ANIMAL DANDER 11/21/2021 14 - Other: See Comments Comments: sneezing and stuffy nose POLLEN EXTRACTS 11/21/2021 14 - Other: See Comments Comments: sneezing Date Reviewed: 01/23/2024 Reviewed by: Francesco Diaz MD - Fully Assessed Reason for Visit: Patient Update [1234] Prescriptions as of 05/12/2024 - ergocalciferol 50,000 unit capsule (VITAMIN D2, DRISDOL) Take 1 capsule by mouth one time a week. - multivitamin tablet Take 1 tablet by mouth once daily. - Ibuprofen 200 mg cap Take 200 mg by mouth every 6 hours as needed. - omeprazole (PRILOSEC) 40 mg capsule Take 1 capsule by mouth once daily. Problem List As Of Date 05/04/2024 Noted Resolved Closed fracture of right shoulder [S42.91XA] 12/11/2021 03/25/2023 Seasonal allergies [J30.2] 03/25/2023 Encounter for gynecological examination [Z01.41*03/25/2023 Encounter for screening mammogram for breast ca*03/25/2023 Screening for colon cancer [Z12.11] 03/25/2023 Well adult exam [Z00.00] 03/25/2023 Neck mass [R22.1] 03/25/2023 Aphthae, ulcer oral [K12.0] 03/25/2023 Obesity, Class III, BMI 40-49.9 (morbid obesity*03/25/2023 Encounter for screening for diabetes mellitus [*03/25/2023 Encounter for lipid screening for cardiovascula*01/23/2024 Encounter Status:Closed by SONIA VIZCARRA on 05/12/24 [facility] CNPN Telephone (FAMPWS) -- ADILENE KOO ([id number]) 1970 F Date Time Provider Department 03/16/24 FRANCESCO DIAZ During your visit today, we recorded the following information about you: Penny Concepcion, NESS 03/16/2024 12:58 PM Signed Pt calling in with an insurance issue for her appt on 01/[address] Diaz. Pt states her insurance and the [facility] coders her are telling her that the appt was coded only for obesity. Pt came in for knee pain and states also for a pulled muscle in her knee. That is why she came in. States insurance company is telling her that the appointment was coded for morbid obesity and they will not cover it because of that. Pt states she did not come in for her weight and states the bill is $600 and she can't afford to pay that. Messaged someone in the [facility] [employer] coding department who states the visit was coded as morbid obesity, pain in right and left knee, and GERD. Called and spoke with pt again and told her that the bilat knee pain and GERD were on there as well. Explained that she should call her insurance company again if they told her the only code was the morbid obesity. Pt states she was under the impression by the insurance company that if morbid obesity is on as a code, they automatically will not pay anything. Pt is asking if Dr. Diaz can remove the code of morbid obesity from her 01/23/24 appointment so her insurance will pay for the appt. She was told if [facility] resends the bill then they can change the coverage for it. Francesco Diaz MD 03/16/2024 2:09 PM Signed Let patient know that we did discuss her obesity at the appt and that it was most likely the biggest contributor to her knee pain. I even referred her to the weight loss navigator program. To remove the diagnosis just so insurance would cover it is considered insurance fraud. I could lose my licence, pay a fine and go to alf for doing that. Patient should have been given this info: Have financial assistance or financial related questions about an upcoming or future service? Use [employer] to schedule a callback with a Patient Refractory Tile Helper at [email or web address] rodriguez or call toll-free at [phone]. Have questions regarding your medical bill for a past service? Use [employer] to schedule a callback with a Pharmaceutical Engineer at [facility]/dimple rodriguez or call us at [phone] or toll-free at [phone]. Mracella Oglesby MA 03/16/2024 2:56 PM Signed Spoke with patient and gave her Dr Diaz's response and she was upset. She doesn't understand. She said they have talked about her weight in the past and he has never put that as a dx code for morbid obesity. I offered the [employer] number. She indicated that they will not help her because she make $85,000 a year. She is trying to raise her 2 year grandchild and take care of her dad all on her own and now she has a $649.00 bill for a 15 minute visit. She said if they will not cover this visit because of the obsiety then will not cover to help her lose weight. PRAVIN Madrid Jeffrey A, MD 03/16/2024 4:04 PM Signed Let patient know that the financial number she was given is who she should be calling when questioning a bill. They will review it and determine if there are any issue and in an adjustment is needed. The code used for the billing was 20240 which is a standard office visit code for an established patient. Whether obesity is in the diagnoses should not affect if insurance pays for the office visit or not. Because obesity is a risk for the development of other health related issues it's going to end up in the billing at least once a year. In fact it was on her diagnosis at her appt on 06/20/2023, and 03/25/2023. I have never had a patient tell me that their insurance refused to cover a office visit because obesity was one of the diagnoses used. This makes me wonder if she has a deductible she has to meet first before insurance starts to cover her office visits. Kwaku Lema RN 03/16/2024 4:25 PM Signed Patient phoned to let pcp know, insurance told her the code used for billing the office visit was E6601. Patient states this code is for obesity and obesity is not covered. Gave patient pcp message below. Patient states the 23079 was not sent to insurance, the E6601 was. Allergies As of Date: 03/16/2024 Noted Allergy Reaction ANIMAL DANDER 11/21/2021 14 - Other: See Comments Comments: sneezing and stuffy nose POLLEN EXTRACTS 11/21/2021 14 - Other: See Comments Comments: sneezing Date Reviewed: 01/23/2024 Reviewed by: Francesco Diaz MD - Fully Assessed Reason for Visit: Insurance problem with coding of visit [Other] Prescriptions as of 03/16/2024 - omeprazole (PRILOSEC) 40 mg capsule Take 1 capsule by mouth once daily. - meloxicam (MOBIC) 15 mg tablet T (more content not included)... Normal [facility] CT NECK SOFT TISSUE W IVCONo n 04-17-2023 [facility] MG Breast Tomosynthesis Scr Blon 09-13-2019 MG Breast Tomosynthesis Scr Bl Patient Name: ADILENE KOO Mammography Exam Date/Time 09/13/2019 17:36:16 EST Exam MG Breast Tomosynthesis BI Scr Ordering Physician MD PAULINE, DWAINE Daigle Accession Number [id number] CPT4 Codes 35762 (MG Breast Tomosynthesis Scr Bl), 85536 (MG MAMMO 2D SCREENING) Reason For Exam routine Report TIME SINCE LAST MAMMOGRAM: Baseline mammogram. REASON FOR EXAM: screening, asymptomatic. PROCEDURE: MG BREAST TOMOSYNTHESIS BL SCR: SEPTEMBER 13, 2019 - 2D/3D Procedure 3D Bilateral CC and MLO view(s) were taken. 2D Bilateral CC and MLO view(s) were taken. TISSUE DENSITY: There are scattered fibroglandular densities. . FINDINGS: No suspicious masses, architectural distortions or suspiciously clustered microcalcifications are identified. This was a baseline study. Therefore, there were no studies used for comparison. Markings on images: BB's = Nipples; skin lesions Open salt river = Palpable Line = Scar 2D digital mammography and tomosynthesis imaging were performed and reviewed with CAD. ASSESSMENT: Category 1 Negative No mammographic evidence of malignancy. RECOMMENDATION: Routine screening mammogram of both breasts in 1 year. . Report Dictated on Cancer Risk Assessment: This risk assessment is based on patient provided information collected in a risk survey taken at the time of this examination. Lifetime breast cancer risk: 15% - If greater than or equal to 20%, consider annual mammogram and annual screening Breast MRI or follow up in high risk clinic. Is the patient at elevated risk based on the HBOC criteria? Yes (Hereditary Breast and Ovarian Cancer) - If yes, consider genetic counseling and testing with high risk follow up. HNPCC mutation risk (Suarez Syndrome): 1.3% - if greater than or equal to 5%, consider genetic counseling, testing and screening colonoscopy. Final Signed Date and Time: 09/14/2019 8:38 am Signed by: MD WINCHESTER KERISTEN L Normal [facility] Chlamydia and GC PCR Panelon 07-26-2019 Chlamydia and GC PCR Panel Chlamydia trachomatis PCR --> Status: F NOT Detected Chlamydia trachomatis Nucleic Acid NOT Detected by DNA Amplification using the Cepheid System. Culture is the only recommended test in medical-legal cases such as suspected child abuse or molestation. Chlamydia trachomatis Nucleic Acid NOT Detected by DNA Amplification using the Cepheid System. Culture is the only recommended test in medical-legal cases such as suspected child abuse or molestation. Neisseria gonorrhoeae PCR --> Status: F NOT Detected Neisseria gonorrhoeae Nucleic Acid NOT Detected by DNA Amplification using the Easy Iceid System. Culture is the only recommended test in medical-legal cases such as suspected child abuse or molestation. Neisseria gonorrhoeae Nucleic Acid NOT Detected by DNA Amplification using the Easy Iceid System. Culture is the only recommended test in medical-legal cases such as suspected child abuse or molestation. Normal [facility] Comment on above: Order Comment: Speci men Source Comment:Urine voided Performed By: #### C TNGP #### [address] [address] Hemoglobin A1Con 07-25-2019 HbA1c (Bld) [Mass fraction] 103 mg/dL Normal [facility] Comment on above: Performed By: #### L IPD2, HA1C2, TSH5 #### [address] HbA1c (Bld) [Mass fraction] 5.2 % Normal 4.0-5.7 [facility] Comment on above: Result Comment: --Hg bA1C levels may not be accurate in patients who have renal disease, received recent blood transfusions, are anemic, or who have dyshemoglobinemia. Performed By: #### L IPD2, HA1C2, TSH5 #### [place] [address] [place], [place] eAG 103 mg/dL [place], [place] HbA1c (Bld) [Mass fraction] 5.2 % 4 - 5.7 % [place], [place] Comment on above: --HgbA1C levels may not be accurate in patients who have renal disease, received recent blood transfusions, are anemic, or who have dyshemoglobinemia. Test Performed by [facility], [facility] [place], [place] [id number] [place] [address] Lipid Panelon 07-25-2019 Cholesterol in HDL [Mass/Vol] 54 mg/dL Normal 40-60 [facility] Comment on above: Performed By: #### L IPD2, HA1C2, TSH5 #### [address] [place] [address] Cholesterol.total/Chol esterol in HDL [Mass ratio] 3 Normal [facility] Comment on above: Result Comment: Ref Range: < 3 Low Risk for CHD 3-6 Mod Risk for CHD > 6 High Risk for CHD Performed By: #### L IPD2, HA1C2, TSH5 #### [facility] [address] [place] [address] Protein [Mass/Vol] 96 mg/dL Normal <100 [facility] Comment on above: Performed By: #### L IPD2, HA1C2, TSH5 #### [facility] [address] [place] [address] Cholesterol [Mass/Vol] 165 mg/dL Normal < 200 [facility] Comment on above: Performed By: #### L IPD2, HA1C2, TSH5 #### [address] [place] [address] [place] [address] Triglyceride [Mass/Vol] 77 mg/dL Normal <150 [facility] Comment on above: Performed By: #### L IPD2, HA1C2, TSH5 #### [address] [address] [place] [address] Cholesterol [Mass/Vol] 165 mg/dL <200 [facility], [place] Cholesterol in HDL [Mass/Vol] 54 mg/dL 40 - 60 mg/dL [facility], [place] Cholesterol in LDL [Mass/Vol] 96 mg/dL <100 [facility], [place] Cholesterol.total/Chol esterol in HDL [Mass ratio] 3 {ratio} [facility], [place] Comment on above: Ref Range: < 3 Low Risk for CHD 3-6 Mod Risk for CHD > 6 High Risk for CHD Triglyceride [Mass/Vol] 77 mg/dL <150 [facility], [place] Test Performed by [facility], [address] [place] [address] [facility], [place] TSH without Reflexon 019 TSH Qn 2.420 u[IU]/mL 0.465 - 4.68 u[IU]/mL [facility], [place] Test Performed by [facility], [address] [place] [id number] [place] [address] [place], [place] Thyroid Stim. Hormoneon 07-04 Thyroid Stim. Hormone 2.420 u[IU]/mL Normal 0.465-4.68 0 [facility] Comment on above: Performed By: #### L IPD2, HA1C2, TSH5 #### [facility] [address] [place] [address] Chlamydia and GC PCR Panelon 07-07-2019 Chlamydia and GC PCR Panel Chlamydia trachomatis PCR --> Status: F NOT Detected Chlamydia trachomatis Nucleic Acid NOT Detected by DNA Amplification using the CepCliQr Technologiesid System. Culture is the only recommended test in medical-legal cases such as suspected child abuse or molestation. Chlamydia trachomatis Nucleic Acid NOT Detected by DNA Amplification using the CepCliQr Technologiesid System. Culture is the only recommended test in medical-legal cases such as suspected child abuse or molestation. Neisseria gonorrhoeae PCR --> Status: F NOT Detected Neisseria gonorrhoeae Nucleic Acid NOT Detected by DNA Amplification using the Cepheid System. Culture is the only recommended test in medical-legal cases such as suspected child abuse or molestation. Neisseria gonorrhoeae Nucleic Acid NOT Detected by DNA Amplification using the CepCliQr Technologiesid System. Culture is the only recommended test in medical-legal cases such as suspected child abuse or molestation. Normal [facility] Comment on above: Order Comment: Speci men Source Comment:Urine voided Performed By: #### C TNGP #### [facility] [address] [place], [place] HIV 1,2 Ab; p24 Agon 019 HIV 1,2 Ab; p24 Ag NONREACTIVE Normal Nonreactive [facility] Comment on above: Result Comment: Resu lts obtained using the FDA cleared 4th generation HIV test. This test detects antibodies to HIV1, HIV2, HIV Group O, and the presence of the HIV-1 p24 antigen. A Non-Reactive re- sult indicates the patient is negative for both HIV antibody and HIV p24 antigen. All reactive results will undergo reflex confirmation testing at an additional charge. Performed By: #### R RI, HIV4, HBSAG, HEPC #### [facility] [address] [place] [address] Hep B Surface Agon 09-05-201 9 Hep B Surface Ag NOT DETECTED Normal Not-Detected [facility] [employer] Comment on above: Performed By: #### R RI, HIV4, HBSAG, HEPC #### [facility] [address] [place] [address] Hep C Antibodyon 07-07-2019 Hep C Antibody NOT DETECTED Normal Not-Detected [facility] [place] [employer] Comment on above: Result Comment: Promise ents with DETECTED Hepatitis C Ab results should have a new specimen submitted for supplemental testing with a Hepatitis C Quantitative RNA assay (viral load), if clinically indicated. Performed By: #### R RI, HIV4, HBSAG, HEPC #### [employer] [address] [place] [address] RPR, Qualon 07-07-2019 RPR, Qual NONREACTIVE Normal Non-Reactive [facility] [employer] Comment on above: Performed By: #### R RI, HIV4, HBSAG, HEPC #### [facility] [address] [place] [address] CULTURE WOUNDon 05-04-2017 CULTURE WOUND CULTURE WOUND _WOUND CULTURE_\LM00\\16PI\\LPI8\ M I C R O B I O L O G Y R E P O R T FINAL --------- Antimicrobial Susceptibility and Organism Identification Report -------- Specimen Number : [id number] Requested : 05/05/17 Specimen Source : WOUND Collected : 05/04/17 15:30 Singh of Isolation : OUTPATIENT Received : 05/05/17 07:56 Requesting Physician : MING -------- Patient/Specimen Tests and Comments Specimen Comments -------- -------- FINAL REPORT: ABUNDANT GROWTH GRAM POSITIVE COCCI abdominal wall ------ Organisms Identified --------* 01 Methicillin Resistant Staphylococcus aureus 05/07/17 Comments -------- -------- abundant growth --------Tech : Source : WOUND ID # : [id number] FINAL Report Date : / / : Collected : 05/04/17 15:30 Continued on Next Page\PAGE\ M I C R O B I O L O G Y R E P O R T FINAL --------- Antimicrobial Susceptibility and Organism Identification Report Isolate 01 Methicillin Resistant Staphylococcus aureus -------- Methicillin Resistant Staphylococcus aureusDRUG OG Sys. Urine --- ----- -----Amp/Sulbactam 16/8 R*Ampicillin >8 R*Amox/K Clav >4/2 R*Clindamycin <=0.5 SCefoxitin Screen >4 POSCiprofloxacin >2 RDaptomycin 1 SErythromycin 2 INitrofurantoin <=32Inducible Clindamycin <=4/0.5 NEGLevofloxacin >4 RLinezolid 2 SMoxifloxacin 2 SOxacillin >2 RPenicillin >8 R*Rifampin <=1 SSynercid <=0.5 STrimeth/Sulfa <=0.5/9.5 STetracycline <=4 SVancomycin 2 S B-Lactamase Positive+, ++, +++, or S = Susceptible N/R = Not Reported Juliana = Beta Lactamase Positive I = Intermediate CC = Cost Code TFG = Thymidine-dependent Strain R = Resistant OG = mcg/ml (mg/L) Blank = Data not available, or drug not advisable or testedFor Blood and CSF Isolates, a Beta-Lactamase test is recommended for Enterococus species.IB appears in place of S, I (S), +, ++, or +++ with species known to possess inducible B-lactamases; potentially they may becomeresistant to all B-lactam drugs. Monitoring of patients during/after therapy is recommended. Avoid other/combined B-lactam drugs.(a) Use maximum doses of drug with an aminoglycoside for P. aeruginosa in patients with granulocytopenia or serious infections.(b) Breakpoints based on parenteral dose. For cefuroxime Axetil (PO) use <8=S, 8-16=I, >16=R.(c) For non-enterococcal streptococci, Micrococcus species, and Listeria species, refer to the Ampicillin interpretation. * Interpretations based on approx. adult attainable systemic/urine levels, except drugs with <3 dilutions, which print NCCLS. Doses are guidelines; consider weight and renal/hepatic function. Urine interpretation for lower UTI only. Interpretations based on NCCLS M7-A2. Ticar/K Clav'ate for gram positives based on senior investment analyst's breakpoints. Tech : Source : WOUND ID # : [id number] FINAL Report Date : / / : Collected : 05/04/17 15:30\12PI\\LPI6\ Normal [facility] Comment on above: Performed By: #### 2 [id number] ####[facility],[address] [place] [address] Vital Signs Date Time Vital Sign Value Performing Clinician Margie trejo 04-17-2025 15:17-0400 Body mass index (BMI) [Ratio] 50.3 kg/m2 Beti Ivan MD Work Phone: [facility] 04-17-2025 15:17-0400 Body weight 128.82 kg Beti Ivan MD Work Phone: [facility] 04-17-2025 15:17-0400 Diastolic blood pressure 90 mm[Hg] Beti Ivan MD Work Phone: [facility] 04-17-2025 15:17-0400 Respiratory rate 16 /min Beti Ivan MD Work Phone: [facility] 04-17-2025 15:17-0400 Systolic blood pressure 150 mm[Hg] Beti Ivan MD Work Phone: [facility] 05-06-2024 13:07-0400 Body height 157.5 cm Sonia Vizcarra APRN.[employer] Work Phone: [facility] 05-06-2024 13:07-0400 Body mass index (BMI) [Ratio] 52.09 kg/m2 Sonia Vizcarra APRN.[employer] Work Phone: [facility] 05-06-2024 13:07-0400 Body weight 129.18 kg Sonia Vizcarra APRN.[employer] Work Phone: [facility] 05-06-2024 13:07-0400 Diastolic blood pressure 70 mm[Hg] Sonia Vizcarra APRN.[employer] Work Phone: [facility] 05-06-2024 13:07-0400 Systolic blood pressure 138 mm[Hg] Sonia Vizcarra APRN.[employer] Work Phone: [facility] 01-23-2024 10:41-0400 Body weight 128.82 kg Francesco Diaz MD Work Phone: [facility] 01-23-2024 10:41-0400 Diastolic blood pressure 86 mm[Hg] Francesco Diaz MD Work Phone: [facility] 01-23-2024 10:41-0400 Heart rate 67 /min Francesco Diaz MD Work Phone: [facility] 01-23-2024 10:41-0400 Respiratory rate 18 /min Francesco Diaz MD Work Phone: [facility] 01-23-2024 10:41-0400 SaO2% (BldA) [Mass fraction] 97 % Francesco Diaz MD Work Phone: [facility] 01-23-2024 10:41-0400 Systolic blood pressure 142 mm[Hg] Francesco Diaz MD Work Phone: [facility] 06-20-2023 09:22-0400 Diastolic blood pressure 84 mm[Hg] Francesco Diaz MD Work Phone: [facility] 06-20-2023 09:22-0400 Systolic blood pressure 149 mm[Hg] Francesco Diaz MD Work Phone: [facility] 06-20-2023 09:02-0400 Body weight 123.38 kg Francesco Diaz MD Work Phone: [facility] 06-20-2023 09:02-0400 Heart rate 62 /min Francesco Diaz MD Work Phone: [facility] 06-20-2023 09:02-0400 Respiratory rate 16 /min Francesco Diaz MD Work Phone: [facility] Encounters Encounter Date Encounter Type Care Provider Facility Start: 04-26-2025 ambulatory Caryn Alexis y:[facility] Start: 04-19-2025 End: 04-19-[address] Beti Ivan MD -Laboratory Specimen Work Phone: Start: 04-19-2025 End: 04-19-2025 ambulatory Beti Ivan Facility:[facility] Start: 04-17-2025 End: 04-17-[address] Caryn Chao MD -[facility] Work Phone: Start: 04-17-2025 End: 04-17-2025 ambulatory Beti Ivan MD Work Phone: [facility] Work Phone: Start: 03-30-2025 ambulatory Arti Mcmillan NP Facil ity:[facility] Start: 03-29-2025 Encounter for genera l adult medical examination without abnormal findings Beti Ivan [facility] Start: 03-23-2025 End: 03-23-2025 ambulatory Beti Ivan MD Work Phone: [facility] Work Phone: Start: 03-23-2025 End: 03-23-[address] Beti Ivan MD -Laboratory [facility] Start: 03-23-2025 End: 03-23-2025 ambulatory Beti Ivan Facility:[facility] Start: 03-10-2025 End: 03-10-2025 ambulatory Beti Ivan MD Work Phone: [facility] Work Phone: Start: 03-10-2025 End: 03-10-[address] Beti Ivan MD -Outpatient Breast Imaging Work Phone: Start: 03-10-2025 End: 03-10-2025 ambulatory Beti Ivan Facility:[facility] Start: 02-24-2025 ambulatory Caryn Robotham Facilit y:[facility] Start: 02-06-2025 End: 02-06-2025 ambulatory Beti Ivan MD Work Phone: [facility] Work Phone: Start: 02-06-2025 End: 02-06-[address] Beti Ivan MD -[facility] Start: 02-06-2025 End: 02-06-2025 ambulatory Beti Ivan Facility:[facility] Start: 01-31-2025 End: 03-03-2025 ambulatory Francesco Diaz MD Work Phone: [facility] Start: 06-05-2024 Telephone encounter Francesco Diaz MD Work Phone: [facility] Comment on above: Results Start: 06-03-2024 End: 06-03-2024 ambulatory FRANCESCO DIAZ Facility:[facility] Start: 06-03-2024 End: 06-03-2024 Subsequent hospital visit by physician Xr [facility] Work Phone: Radiology Comment on above: Pain in both knees, unspecified chronicity [M25.561, M25.562] Start: 05-08-2024 Orders Only Sonia Vizcarra APRN.[employer] Work Phone: OB/Gynecology Comment on above: Vitamin D deficiency (Primary Dx) Start: 05-07-2024 End: 05-07-2024 ambulatory SONIA VIZCARRA Facility:[facility] Start: 05-06-2024 End: 05-06-2024 ambulatory SONIA VIZCARRA Facility:[facility] Start: 05-06-2024 End: 05-06-2024 Patient encounter procedure Sonia Vizcarra APRN.[employer] Work Phone: OB/Gynecology Comment on above: Gastroesophageal ref lux disease without esophagitis (Primary Dx); Malaise and fatigue; Pain in both knees, unspecified chronicity; Screening for deficiency anemia; Screening for diabetes mellitus; Screening for metabolic disorder; Screening for thyroid disorder; Encounter for vitamin deficiency screening; Class 3 severe obesity with serious comorbidity and body mass index (BMI) of 45.0 to 49.9 in adult, unspecified obesity type (HCC) Start: 05-04-2024 Telephone encounter Sonia birmingham APRN.[employer] Work Phone: OB/Gynecology Comment on above: Patient Update Start: 03-16-2024 Telephone encounter Francesco Diaz MD Work Phone: [facility] Ivonne Comment on above: Insurance problem [facility] coding of visit Start: 03-02-2024 ambulatory Francesco ponce MD Work Phone: Internal Medicine [facility] Start: 01-25-2024 Telephone encounter Marcella Oglesby MA [facility] Start: 01-23-2024 End: 01-23-2024 Patient encounter procedure Francesco Diaz MD Work Phone: Family [facility] [place] Comment on above: Obesity, Class III, BMI 40-49.9 (morbid obesity) (HCC) (Primary Dx); Pain in both knees, unspecified chronicity; Gastroesophageal reflux disease without esophagitis; Encounter for screening for diabetes mellitus; Encounter for lipid screening for cardiovascular disease Start: 06-20-2023 Patient encounter status Gee Diaz MD Work Phone: [facility] Work Phone: Start: 06-20-2023 End: 06-20-2023 Patient encounter procedure Francesco Diaz MD Work Phone: Family [facility] [place] Comment on above: Seasonal allergies ( Primary Dx); Obesity, Class III, BMI 40-49.9 (morbid obesity) (HCC); Neck mass; Elevated blood pressure reading without diagnosis of hypertension Start: 04-21-2023 Telephone encounter Francesco Diaz MD Work Phone: Family Medicine [place] Comment on above: Results Start: 04-17-2023 End: 04-17-2023 Subsequent hospital visit by physician [facility] ([facility]) Work Phone: Cat Scan Comment on above: Neck mass [R22.1] Start: 03-25-2023 Patient encounter status Gee Diaz MD Work Phone: [facility] Work Phone: Start: 02-18-2023 Telephone encounter Francesco Diaz MD Work Phone: [facility] [place] Comment on above: Appointment Start: 09-13-2019 End: 09-13-2019 Subsequent hospital visit by physician Lizy Short Work Phone: [facility] Comment on above: Arrived Start: 07-25-2019 End: 07-25-2019 Subsequent hospital visit by physician Zulema Talavera Work Phone: [facility] Comment on above: Wellness examination ; Screening, lipid; Screening for diabetes mellitus; Screening for chlamydial disease Start: 07-06-2019 End: 07-06-2019 Subsequent hospital visit by physician Jorge Hurley Work Phone: [facility] Comment on above: Screening examinatio n for STD (sexually transmitted disease) Start: 05-05-2017 End: 05-05-2017 Ambulatory [facility] Procedures Date Procedure Procedure Detail Performing Clinician Start: 04-19-2025 End: 04-19-2025 Trichomonas vaginalis detection Beti Ivan MD Work Phone: Start: 03-23-2025 Liquid based cervica l cytology screening Beti Ivan MD Work Phone: Comment on above: NEGATIVE FOR INTRAEP ITHELIAL LESION OR MALIGNANCY. Test not performedTh e Thin Prep(R) [facility] was unable to read this specimen.Therefore a manual review was performed. Start: 03-23-2025 Hepatitis C antibody measurement Beti Ivan MD Work Phone: Comment on above: Reactive: Presumptiv e evidence of antibodies to HCV. Follow CDC recommendations for supplemental testing.Non-Reactive: Antibodies to HCV were not detected; does not exclude the possibility of exposure to HCVReactive Results are presumptive evidence of antibodies to HCV. Follow CDC recommendations for supplemental testing.Order confirmation testing: HCV Quant by PCR testing - HCVPCR #[id number] Non Reactive: < 0.8 Equivocal: >/= 0.8 to < 1.0 Reactive: >/= 1.0The CDC requires that a reactive/equivocal HCV antibody result be sent out for confirmation. HCV Quant by PCR testing. Start: 03-23-2025 Serologic test for syphilis Beti Ivan MD Work Phone: Start: 03-10-2025 Screening mammography C deborah Ivan MD Work Phone: Start: 06-03-2024 Radiologic exam knee complete 4/more views Francesco Diaz MD Work Phone: Start: 04-17-2023 Ct soft tissue neck w/contrast material Francesco Diaz MD Work Phone: Start: 04-17-2023 Lipid 1996 panel - S durga or Plasma Ct (I-Stat) Work Phone: Start: 07-25-2019 Assay of thyroid sti mulating hormone tsh Lolis Elliott Work Phone: Start: 07-25-2019 Hemoglobin glycosylated a1c Lolis Elliott Work Phone: Start: 07-25-2019 Lipid panel Lolis Elliott Work Phone: Plan of Treatment Date Care Activity Detail Author Start: 03-25-2033 Urine microalbumin profile [facility] Start: 07-25-2029 DTaP/Tdap/Td vaccine (2 - Td) DTaP/Tdap/Td vaccine (2 - Td) [place] Start: 04-17-2028 Lipid 1996 panel - Serum or Plasma Lipid Screening [facility] Start: 04-17-2028 Lipid panel Lipid Screening [facility] Start: 04-17-2028 LIPID SCREEN LIPID SCREEN [facility] Start: 05-07-2027 Diabetes Screening Diabetes Screenin g [facility] Start: 11-21-2026 LIPID SCREEN LIPID SCREEN [facility] Start: 04-17-2026 DIABETES SCREEN DIABETES SCREEN [facility] Start: 04-17-2026 Diabetes Screening Diabetes Screenin g [facility] Start: 03-23-2025 Liquid based cervica l cytology screening [facility] Start: 11-21-2024 DIABETES SCREEN DIABETES SCREEN [facility] Start: 08-16-2024 End: 08-16-2024 Patient encounter procedure 08/16/2024 3:00 PM EDT Office Visit OB/Gynecology [address] [place] [address] Sonia Vizcarra, FINISHING RANGE OPERATOR.[employer] [address] [place], [place] [id number] 6 wk wt mgnt OB/Gynecology Comment on above: 6 wk wt mgnt Start: 08-08-2024 End: 11-07-2024 25-hydroxyvitamin D3 [Mass/volume] in Serum or Plasma VITAMIN D 25 HYDROXY Lab Timed Vitamin D deficiency Expected: 08/08/2024, Expires: 11/07/2024 [facility] Work Phone: Comment on above: Expected: 08/08/2024 , Expires: 11/07/2024 Start: 07-25-2024 Lipid screen Lipid screen Michelle Rodriguez th- [place], [place] Start: 07-03-2024 Covid-19 Vaccine ( season) Covid-19 Vaccine ( season) [facility] Start: 07-03-2024 Covid-19 Vaccine ( season) Covid-19 Vaccine ( season) [facility] Start: 07-03-2024 Influenza vaccination C [facility] Start: 06-23-2024 End: 06-23-2024 Patient encounter procedure 06/23/2024 2:30 PM EDT Office Visit OB/Gynecology [address] [place] [address] Sonia Vizcarra, FINISHING RANGE OPERATOR.[employer] [address] [place] [address] 6 wk wt mgnt OB/Gynecology Comment on above: 6 wk wt mgnt Start: 05-06-2024 End: 08-05-2024 25-hydroxyvitamin D3 [Mass/volume] in Serum or Plasma VITAMIN D 25 HYDROXY Lab Routine Malaise and fatigue Encounter for vitamin deficiency screening Class 3 severe obesity with serious comorbidity and body mass index (BMI) of 45.0 to 49.9 in adult, unspecified obesity type (HCC) Expected: 05/06/2024, Expires: 08/05/2024 [facility] Work Phone: Comment on above: Expected: 05/06/2024 , Expires: 08/05/2024 Start: 05-06-2024 End: 08-05-2024 CBC panel - Blood by Automated count COMPLETE BLOOD COUNT Lab Routine Screening for deficiency anemia Class 3 severe obesity with serious comorbidity and body mass index (BMI) of 45.0 to 49.9 in adult, unspecified obesity type (HCC) Expected: 05/06/2024, Expires: 08/05/2024 [facility] Comment on above: Expected: 05/06/2024 , Expires: 08/05/2024 Start: 05-06-2024 End: 08-05-2024 Comprehensive metabolic 2000 panel - Serum or Plasma COMPREHENSIVE METABOLIC PANEL Lab Routine Screening for diabetes mellitus Screening for metabolic disorder Class 3 severe obesity with serious comorbidity and body mass index (BMI) of 45.0 to 49.9 in adult, unspecified obesity type (HCC) Expected: 05/06/2024, Expires: 08/05/2024 [facility] Comment on above: Expected: 05/06/2024 , Expires: 08/05/2024 Start: 05-06-2024 End: 08-05-2024 Insulin [Units/volume] in Serum or Plasma INSULIN ASSAY BLOOD Lab Routine Screening for diabetes mellitus Class 3 severe obesity with serious comorbidity and body mass index (BMI) of 45.0 to 49.9 in adult, unspecified obesity type (HCC) Expected: 05/06/2024, Expires: 08/05/2024 [facility] Comment on above: Expected: 05/06/2024 , Expires: 08/05/2024 Start: 05-06-2024 End: 08-05-2024 Thyrotropin [Units/volume] in Serum or Plasma THYROID STIMULATING HORMONE Lab Routine Malaise and fatigue Screening for thyroid disorder Class 3 severe obesity with serious comorbidity and body mass index (BMI) of 45.0 to 49.9 in adult, unspecified obesity type (HCC) Expected: 05/06/2024, Expires: 08/05/2024 [facility] Comment on above: Expected: 05/06/2024 , Expires: 08/05/2024 Start: 05-06-2024 End: 05-06-2024 Patient encounter procedure 05/06/2024 1:00 PM EDT Office Visit OB/Gynecology [address] [place], [place] [id number] Sonia Vizcarra APRN.[employer] [address] [place] [address] weight management OB/Gynecology Comment on above: weight management Start: 03-11-2024 End: 06-10-2024 Hemoglobin A1c in Blood HGB A1C Lab Routine Encounter for screening for diabetes mellitus Expected: 03/11/2024, Expires: 06/10/2024 [facility] Work Phone: Comment on above: Expected: 03/11/2024 , Expires: 06/10/2024 Start: 03-11-2024 End: 06-10-2024 LIPID PANEL, NONFASTING LIPID PANEL, NONFASTING Lab Routine Encounter for lipid screening for cardiovascular disease Expected: 03/11/2024, Expires: 06/10/2024 [facility] Work Phone: Comment on above: Expected: 03/11/2024 , Expires: 06/10/2024 Start: 11-02-2023 Behavioral Health Screening Behavioral Health Screening [facility] Start: 11-02-2023 [facility] Start: 07-03-2023 Covid-19 Vaccine () Covid-19 Vaccine () [facility] Start: 07-03-2023 Influenza vaccination [facility] Start: 11-02-2022 DEPRESSION ASSESSMENT DEPRESSION ASS ESSMENT [facility] Start: 07-25-2022 Diabetes screen Diabetes screen [place], [place] Start: 02-14-2022 COVID-19 VACCINE (4 - Booster for Moderna series) COVID-19 VACCINE (4 - Booster for Moderna series) [facility] Start: 02-14-2022 COVID-19 VACCINE (4 - Moderna series) COVID-19 VACCINE (4 - Moderna series) [facility] Start: 07-25-2019 End: 07-25-2019 Office Visit 07/25/2019 Office Visit [facility], [address] [place], [place] [id number] [facility] Start: 07-03-2019 Influenza vaccination Flu vaccine (# 1) [place], [place] Start: 2019 Breast cancer screen Breast cancer s [place], [place] Start: 2019 Colon cancer screen colonoscopy Colon cancer screen colonoscopy [place], [place] Start: 2019 Pneumococcal Vaccine : 50+ (1 of 1 - PCV) Pneumococcal Vaccine: 50+ (1 of 1 - PCV) [facility] Start: 2019 Shingles Vaccine (1 of 2) Shingles Vaccine (1 of 2) [place], [place] Start: 2019 SHINGRIX VACCINE (1 of 2) SHINGRIX VACCINE (1 of 2) [facility] Start: 2014 COLOGUARD (FIT-DNA) COLOGUARD (FIT-D NA) [facility] Start: 2014 Colonoscopy COLONOSCOPY [facility] Start: 2014 COLORECTAL CANCER SCREENING COLORECTAL CANCER SCREENING [facility] Start: [address] COLONOGRAPHY [facility] Start: 2014 FECAL OCCULT BLOOD FECAL OCCULT BLOO D [facility] Start: 2014 Screening for malign ant neoplasm of colon [facility] Start: 2014 SIGMOIDOSCOPY SIGMOIDOSCOPY [facility] Start: 2009 Breast cancer screen Breast cancer s [place], [place] Start: 2009 Diabetes screen Diabetes screen [place], [place] Start: 2009 Lipid screen Lipid screen [place], [place] Start: 2009 Mammography [facility] Start: 2009 Screening for malign ant neoplasm of breast Mammogram Screening [facility] Start: 1999 HPV TESTING HPV TESTING [facility] Start: 1999 Screening for malign ant neoplasm of cervix HPV Testing [facility] Start: 1990 Cervical cancer screen Cervical canc er screen [place], [place] Start: 1990 PAP TESTING PAP TESTING [facility] Start: 1990 Screening for malign ant neoplasm of cervix [facility] Start: 1988 DTaP/Tdap/Td vaccine (1 - Tdap) DTaP/Tdap/Td vaccine (1 - Tdap) [place], [place] Start: 1988 Urine microalbumin profile DTAP,TDAP,TD (1 - Tdap) [facility] Start: 1987 Anxiety Screening Anxiety Screening [facility] Start: 1987 Depression Screening Depression Scre ening [facility] Start: 1984 HIV screen HIV screen [place], [place] Start: 1969 HEPATITIS B (1 of 3 - 3-dose series) HEPATITIS B (1 of 3 - 3-dose series) [facility] End: 07-06-2019 C. Trachomatis / N. Gonorrhoeae, DNA C. Trachomatis / N. Gonorrhoeae, DNA Microbiology Routine Screening examination for STD (sexually transmitted disease) 1 Occurrences starting 07/06/2019 until 07/06/2019 [place] Comment on above: 1 Occurrences starti ng 07/06/2019 until 07/06/2019 C. Trachomatis / N. Gonorrhoeae, DNA [place] End: 07-25-2019 C. Trachomatis / N. Gonorrhoeae, DNA C. Trachomatis / N. Gonorrhoeae, DNA Microbiology Routine Screening for chlamydial disease 1 Occurrences starting 07/25/2019 until 07/25/2019 [place] Comment on above: 1 Occurrences starti ng 07/25/2019 until 07/25/2019 End: 03-02-2026 DBT Breast - bilateral screening [facility] SCREENING [facility]ON[facility] Radiology Routine Encounter for screening mammogram for breast cancer 1 Occurrences starting 01/31/2025 until 03/02/2026 [facility] Work Phone: Comment on above: 1 Occurrences starti ng 01/31/2025 until 03/02/2026 End: 07-06-2019 Hepatitis B Surface Antigen Hepatitis B Surface Antigen Lab Routine Screening examination for STD (sexually transmitted disease) 1 Occurrences starting 07/06/2019 until 07/06/2019 [place] Comment on above: 1 Occurrences starti ng 07/06/2019 until 07/06/2019 Hepatitis B Surface Antigen Hepatitis B Surface Antigen Lab Routine Screening examination for STD (sexually transmitted disease) 07/06/2019 4:30 PM EDT [place] End: 07-06-2019 Hepatitis C Antibody Hepatitis C Antibody Lab Routine Screening examination for STD (sexually transmitted disease) 1 Occurrences starting 07/06/2019 until 07/06/2019 [place] Comment on above: 1 Occurrences starti ng 07/06/2019 until 07/06/2019 Hepatitis C Antibody Hepatitis C Antibody Lab Routine Screening examination for STD (sexually transmitted disease) 07/06/2019 4:30 PM EDT [place] End: 07-06-2019 HIV Screen HIV Screen Lab Routine Screening examination for STD (sexually transmitted disease) 1 Occurrences starting 07/06/2019 until 07/06/2019 [place] Comment on above: 1 Occurrences starti ng 07/06/2019 until 07/06/2019 HIV Screen HIV Screen Lab R outine Screening examination for STD (sexually transmitted disease) 07/06/2019 4:30 PM EDT [place] End: 04-01-2025 MG Breast Screening [facility] SCREENING Radiology Routine Encounter for screening mammogram for breast cancer 1 Occurrences starting 03/02/2024 until 04/01/2025 [facility] Work Phone: Comment on above: 1 Occurrences starti ng 03/02/2024 until 04/01/2025 Path report.final Dx Spec [facility] End: 07-06-2019 RPR with FTA Relex RPR with FTA Relex Lab Routine Screening examination for STD (sexually transmitted disease) 1 Occurrences starting 07/06/2019 until 07/06/2019 [place] Comment on above: 1 Occurrences starti ng 07/06/2019 until 07/06/2019 RPR with FTA Relex RPR with FTA Relex Lab Routine Screening examination for STD (sexually transmitted disease) 07/06/2019 4:30 PM EDT [place] End: 09-13-2019 Screening digital breast tomosynthesis bi Giles Ronaldo Digital Screen Bilateral Imaging Routine Once for 1 Occurrences starting 09/13/2019 until 09/13/2019 [place] Comment on above: Once for 1 Occurrenc es starting 09/13/2019 until 09/13/2019 Screening digital breast tomosynthesis bi Giles Ronaldo Digital Screen Bilateral Imaging Routine 09/13/2019 5:36 PM EST [place] End: 02-21-2025 XR Knee - bilateral 4 Views XR KNEE GENERAL 4V AP BOTH/PA BOTH/LAT/MERC BILATERAL Radiology Routine Pain in both knees, unspecified chronicity 1 Occurrences starting 01/23/2024 until 02/21/2025 [facility] Work Phone: Comment on above: 1 Occurrences starti ng 01/23/2024 until 02/21/[address] [facility] [address] [facility] Immunizations Immunization Date Immunization Notes Care Provider [facility] 03-25-2023 tetanus toxoid, redu luis diphtheria toxoid, and acellular pertussis vaccine, adsorbed Francesco Diaz MD Work Phone: [facility] 07-25-2019 tetanus toxoid, redu luis diphtheria toxoid, and acellular pertussis vaccine, adsorbed Zulema Sadaf [place], [place] Payers Date Payer Category Payer Self-pay 2017 [employer] Blue [employer] BLUE CARD PPO OOS [id number] 2017 Unknown BCBS BCBS - [place] P PO xxxxxxxxxxxx 2017-Present [address] [place] [address] xxxxxxxxxxxx [id number] 2017 Unknown ANTHEM BLUE CARD PPO OOS [id number] 2017-Present [phone] [address] [place] [address] PPO [id number] 2017 Blue Cross Blue Shield [id number] Unknown [facility] [id number] Unknown [id number] Unknown [id number] Unknown [id number] Unknown [id number] Unknown [id number] Unknown [id number] Unknown [id number] Unknown [id number] Social History Date Type Detail Facility Start: 07-06-2019 End: 04-24-2025 Tobacco smoking status NHIS Never smoker [facility] Work Phone: Start: 07-06-2019 End: 03-23-2023 Alcohol intake Never [facility] Start: 07-06-2019 End: 03-24-2023 [facility] 1970 [facility] ELAINE FIERRO Start: 07-06-2019 End: 05-08-2024 Alcohol intake Lifetime non-drinker (finding) Michelle [facility] ELAINE FIERRO Start: 10-17-2021 End: 05-06-2024 Tobacco use and exposure Smokeless tobacco non-user [facility] Work Phone: Start: 03-24-2023 History SDOH Alcohol Std Drinks 0 [facility] Start: 03-24-2023 History SDOH Social Connections Phone 5 [facility] Start: 03-24-2023 History SDOH Social Connections Membership 2 [facility] Start: 03-23-2023 End: 03-25-2023 History of Social function [facility] Do you belong to any clubs or organizations such as worship groups, unions, fraternal or athletic groups, or school groups? No [facility] Are you now , , , , never or living with a partner? [facility] How often to you hav e a drink containing alcohol? Never [facility] How many standard dr inks containing alcohol do you have on a typical day? Patient does not drink [facility] Do you feel stress - tense, restless, nervous, or anxious, or unable to sleep at night because your mind is troubled all the time - these days [OSQ] Not at all [facility] (I/We) worried wheth er (my/our) food would run out before (I/we) got money to buy more. Never true [facility] Start: 05-06-2024 Education 13 [facility] Start: 02-10-2025 Sex Female (finding) [facility] Start: 1970 Sex Assigned At Female W [facility] NEGATED: Highlighted rowStart: MARCOF History of tobacco use Passive smoker [facility] Clinical Notes 12-11-2021 to 04-17-2025 Note Date & Type Note Facility 04-17-2025 Evaluation note Diagnosis Onset Date Resolution Acid reflux acute April 17 3:04pm Family history of colon cancer in father acute April 3:04pm Screening for malignant neoplasm of colon acute April 17, 2025 3:04pm [facility] Work Phone: 1(542) 891-750804-01-2025 NotePatient Outreach (FAMPWS) ADILENE KOO ([id number]) 1970 F Date Time Provider Department 01/31/25 FRANCESCO DIAZPWS During your visit today, we recorded the following information about you: Allergies As of Date: 01/31/2025 Noted Allergy Reaction ANIMAL DANDER 11/21/2021 14 - Other: See Comments Comments: sneezing and stuffy nose POLLEN EXTRACTS 11/21/2021 14 - Other: See Comments Comments: sneezing Date Reviewed: 05/06/2024 Reviewed by: Sonia Vizcarra APRN.[employer] - Fully Assessed Visit Diagnosis:Encounter for screening mammogram for breast cancer [Z12.31] Order(s):[facility] [[id number]] Order #: [id number] FUTURE Prescriptions as of 03/03/2025 - ergocalciferol 50,000 unit capsule (VITAMIN D2, DRISDOL) Take 1 capsule by mouth one time a week. - multivitamin tablet Take 1 tablet by mouth once daily. - Ibuprofen 200 mg cap Take 200 mg by mouth every 6 hours as needed. - omeprazole (PRILOSEC) 40 mg capsule Take 1 capsule by mouth once daily. Problem List As Of Date 01/31/2025 Noted Resolved Closed fracture of right shoulder [S42.91XA] 12/11/2021 03/25/2023 Seasonal allergies [J30.2] 03/25/2023 Encounter for gynecological examination [Z01.41*03/25/2023 Encounter for screening mammogram for breast ca*03/25/2023 Screening for colon cancer [Z12.11] 03/25/2023 Well adult exam [Z00.00] 03/25/2023 Neck mass [R22.1] 03/25/2023 Aphthae, ulcer oral [K12.0] 03/25/2023 Class 3 severe obesity with serious comorbidity*03/25/2023 Encounter for screening for diabetes mellitus [*03/25/2023 Gastroesophageal reflux disease without esophag*05/05/2024 Pain in both knees [M25.561, M25.562] 05/05/2024 Vitamin D deficiency [E55.9] 05/08/2024 Encounter Status:Closed by JIAN RIVERA on 03/03/25[facility] 06-06-2024 Telephone encounter Note* Telephone Encounter - Kim Zavala RN - 06/06/2024 4:21 PM EDT Patient returns call and below message given. Patient verbalizes understanding but declines scheduling at this time. She reports she will work on exercises herself and wearing a brace. Kim Zavala RN [facility]08-05-2024 Miscellaneous Notes* Telephone Encounter - Kim Zavala RN - 06/06/2024 4:21 PM EDT Patient returns call and below message given. Patient verbalizes understanding but declines scheduling at this time. She reports she will work on exercises herself and wearing a brace. Kim Zavala RN * Telephone Encounter - Marcella Oglesby MA - 06/06/2024 3:24 PM EDT Left message for patient to contact office. Marcella Oglesby MA * Telephone Encounter - Francesco Diaz MD - 06/06/2024 12:50 PM EDT Advise patient that I placed an order for PHYSICAL THERAPY back in December at the same time the x-rayshe finally did was ordered. She should do the PHYSICAL THERAPY. * Telephone Encounter - Cat An RN - 06/06/2024 10:40 AM EDT Pt called and is notified of providers results. Pt voices understanding. She reports when she firstget us in the morning or stands up from sitting she is really stiff and limping until she loosens up. She reports her mobility when she goes from side to side is really weak. She states her grand baby pushed on her calf this weekend and it really hurt. Pt states it's on the outside of her right knee that hurts and like a hook under the knee cap. Please advise on what Pt can do for this. Cat An RN * Telephone Encounter - Marcella Oglesby MA - 06/06/2024 8:35 AM EDT Left message for patient to contact office. Marcella Oglesby MA * Telephone Encounter - Francesco Diaz MD - 06/05/2024 9:54 PM EDT Let patient know her knee x-rays show some mild arthritis otherwise no acute issues. [facility] Telephone encounter Note * Telephone Encounter - Marcella Oglesby MA - 06/06/2024 3:24 PM EDT Left message for patient to contact office. Marcella Oglesby MA [facility] [facility] Telephone encounter Note* Telephone Encounter - Francesco Diaz MD - 06/06/2024 12:50 PM EDT Advise patient that I placed an order for PHYSICAL THERAPY back in December at the same time the x-rayshe finally did was ordered. She should do the PHYSICAL THERAPY. [facility]08-05-2024 Telephone encounter Note* Telephone Encounter - Cat An RN - 06/06/2024 10:40 AM EDT Pt called and is notified of providers results. Pt voices understanding. She reports when she firstget us in the morning or stands up from sitting she is really stiff and limping until she loosens up. She reports her mobility when she goes from side to side is really weak. She states her grand baby pushed on her calf this weekend and it really hurt. Pt states it's on the outside of her right knee that hurts and like a hook under the knee cap. Please advise on what Pt can do for this. Cat An RN [facility]08-05-2024 Telephone encounter Note* Telephone Encounter - Marcella Oglesby MA - 06/06/2024 8:35 AM EDT Left message for patient to contact office. Marcella Oglesby MA [facility]08-04-2024 Telephone encounter Note* Telephone Encounter - Francesco Diaz MD - 06/05/2024 9:54 PM EDT Let patient know her knee x-rays show some mild arthritis otherwise no acute issues. [facility]08-02-2024 History of Present illness Narrative* Sher Virk, RT(R) - 06/03/2024 4:00 PM EDT Radiology Service Progress Note PATIENT NAME: Adilene Koo DATE OF SERVICE: June 03, 2024 TIME: 3:57 PM PATIENT IDENTITY VERIFICATION COMPLETED USING TWO (2) IDENTIFIERS: Name and Date of confirmedby patient verbally. FALL SCREENING: Has the patient had 2 falls in the last year or 1 fall with injury or currently using an Ambulatory Assistive Device (Walker, Cane, Wheelchair, Crutches, etc.)? No PATIENT GENDER DATA: Female. status: : No status: NO. PATIENT RELEVANT IMPLANT DATA REVIEWED: Yes PATIENT PRESENTS WITH AN IMPLANTABLE OR ATTACHED DIGESTER CAPPER: No RADIOLOGY DEPARTMENT: General X-ray: Exam(s) Completed: Lower Extremity X- Ray(s): Knee, AP / Lat / Tunne / Merchant Bilateral and Wt. Bearing PERIPHERAL IV DATA: Not applicable SIGNED BY: RT Suzanne(Danielle) June 03, 2024 3:57 PM documented in this encounterC[facility] NoteHNO ID: [id number] Author: SHER VIRK RT(R) Service: Radiology Author Type: Technologist Type: Progress Notes Filed: 06/03/2024 16:13 Note Text: Radiology Service Progress Note PATIENT NAME: Adilene Koo DATE OF SERVICE: June 03, 2024 TIME: 3:57 PM PATIENT IDENTITY VERIFICATION COMPLETED USING TWO (2) IDENTIFIERS: Name and Date of confirmed by patient verbally. FALL SCREENING: Has the patient had 2 falls in the last year or 1 fall with injury or currently using an Ambulatory Assistive Device (Walker, Cane, Wheelchair, Crutches, etc.)? No PATIENT GENDER DATA: Female. status: : No status: NO. PATIENT RELEVANT IMPLANT DATA REVIEWED: Yes PATIENT PRESENTS WITH AN IMPLANTABLE OR ATTACHED DIGESTER CAPPER: No RADIOLOGY DEPARTMENT: General X-ray: Exam(s) Completed: Lower Extremity X-Ray(s): Knee, AP / Lat / Tunne / Merchant Bilateral and Wt. Bearing PERIPHERAL IV DATA: Not applicable SIGNED BY: JOSIE Palacios) June 03, 2024 3:57 [facility]07-05-2024 History of Present illness Narrative* Sonia Vizcarra APRN.[employer] - 05/06/2024 1:00 PM EDT Images from the original note were not included. Accompanied by 2.5 yo granddaughter. Patient Summary: Adilene Koo is a 53 year old female with obesity who presents for an initial evaluation of overweight/obesity to treat and prevent co-morbidities and is interested in combination of behavioral and pharmacological. Motivation for seeking treatment for the disease of overweight/obesity : To feel better and relievejoint pain Goal weight: 200 lb Lowest recall weight: 124 lb Highest non- recall weight: 284 lb Patient identified barriers to weight loss: knee pain Weight History: She reports a strong family history of obesity and early adulthood weight gain. She states her weight gain is related to the following factors, including weight retention , onset of menopause, reduced physical activity, and consumption of unhealthy foods. History of weight loss with regain? Y - Last Wt 05/06/24 : 129.2 kg (284 lb 12.8 oz) 5% weight loss = 271 lbs, 10% weight loss = 256 lbs WEIGHT GRAPH: Diet/Nutrition overview: Awake - 0330 0600 - DD caramel latte sips until 11 am. WE - no coffee B - 0800 2 eggs with cottage cheese, spinach, cruz and cheese, water. WE eggs and sausage or pancakes or biscuits and gravy S - none L - 1200 raw veg with Ranch WE - grilled ham/cheese or SKIP S - none D - 1730 chicken with rice or mac n cheese and hotdogs or biscuits and sausage gravy S - sometimes popcorn or sweetened cereal with milk If stressed - banana split and will eat all day Fluids: water, coffee, unsweetened iced tea Bedtime - 2100 Quality of diet: 24hr recall suggests unhealthy diet. Characterization of diet:Structured, evening snacking, and increased consumption of sugar sweetenedbeverages. Environmental Services Director of impaired eating habits:mindlessness and stress Eating Disorder no Cravings: ice cream, DD caramel latte Sleep Duration: 6 hours. ISAIAH NO ; CPAP NO Stress Stress:yes , Cause:Work and Personal - Dad has Alzheimer's and signed himself out of [facility] and she is main caregiver and she is raising 2.5 yo granddaughter Obesity Related Comorbidities: Prior Weight Loss Surgery:No PAST MEDICAL HISTORY Diagnosis Date Encounter for lipid screening for cardiovascular disease 01/23/2024 GERD (gastroesophageal reflux disease) Neck mass 03/25/2023 Right side: CT 03/2023 was neg. Obesity, Class III, BMI 40-49.9 (morbid obesity) (HCC) 03/25/2023 Seasonal allergies 03/25/2023 Well adult exam 03/25/2023 last done: 03/25/2023 PAST SURGICAL HISTORY Procedure Laterality Date PAST SURGICAL HISTORY OF Pinning right great toe REPAIR UMBILICAL AMINTA,5+Y/O,REDUC VAGINAL HYSTERECTOMY TODD, has both ovaries FAMILY HISTORY Problem Relation Age of Onset Breast Cancer Mother Hypertension Mother Pancreatic Cancer Mother Obesity Mother Prostate Cancer Father Colon Cancer Father Obesity Father Obesity Sister Heart Attack Brother Alcohol abuse Brother Obesity Brother Obesity Maternal Grandfather Social History Tobacco Use Smoking status: Never Smokeless tobacco: Never Vaping Use Vaping Use: Never used Substance Use Topics Alcohol use: Never Drug use: Never AOM Medications: none Weight Promoting Medications: none Diet/weight loss History: Past weight loss attempts? High Protein and exercise . [employer] Exercise: Regular exercise: no Strength/resistance exercise:no Barriers to regular exercise? Knee pain Work-related activity:Sedentary. 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 Current Contraception: hysterectomy Obesity ROS/ FHx GEN: Fatigue:yes CV: h/o palpitations/cardiac arrhythmia, Chest pain: no HTN: no PULM: Asthma:no GI: GERD:yes ; Gallstones:no ; Fatty liver disease:no Pancreatitis: no MSK: Joint Pain:yes, bilateral knee : Nephrolithiasis: yes early 20's - lithotripsy Symptoms of PCOS: no NEURO: Migraines/DEL CID: no; H/o seizures: no Glaucoma:no; Cataracts no Symptoms of or History of pseudotumor cerebri:no Family or personal History of MEN2 or Medullary thyroid cancer: no PE BP 138/70 Ht 157.5 cm (5' 2) Wt 129.2 kg (284 lb 12.8 oz) BMI 52.09 kg/m Waist Circumference: 48.5 in Neck Circumference: 14.5 in GENERAL: Female in NAD. Central adiposity. SKIN: acanthosis nigricans no, Skin tags: no Hirsutism: no HEENT: PERRL, No supraclavicular adiposity. No dorsal adiposity. RESPIRATORY: CBTA CARDIAC: RRR ABDOMEN: pannus; EXTREMITIES: peripheral edema: yes Results: reviewed with the patient No visits with results within 3 Month(s) from this visit. Latest known visit with results is: Appointment on 04/17/2023 Component Date Value Ref Range Status Hemoglobin A1C 04/17/2023 5.0 4.3 - 5.6 % Final Estimated Average Glucose 04/17/2023 97 mg/dL Final Total Cholesterol, Nonfasting 04/17/2023 165 <200 mg/dL Final Triglycerides, Nonfasting 04/17/2023 80 <150 mg/dL Final HDL Cholesterol, Nonfasting 04/17/2023 44 >39 mg/dL Final LDL Cholesterol, Nonfasting 04/17/2023 105 (H) <100 mg/dL Final Non HDL Cholesterol, Nonfasting 04/17/2023 121 <130 mg/dL Final VLDL Cholesterol, Nonfasting 04/17/2023 16 <30 mg/dL Final Total Chol/HDL Ratio, Nonfasting 04/17/2023 3.75 <5.10 mg/dL Final LDL/HDL Ratio, Nonfasting 04/17/2023 2.39 <2.54 mg/dL Final Impression: Adilene Koo is a 53 year old Female with Class III obesity (Body mass index is 52.09 kg/m .) who has early adulthood obesity with several periods of weight loss followed by weight gain . The causes of her obesity are multifactorial, biological, psychological and social and environmental. Specific factors include a genetic component related to a strong family of obesity, increased consumption of high calorie/process foods, suboptimal physical activity, onset of menopause, inadequate sleep duration, and post weight retention. She has no significant weight-related medical comorbidities which increase her cardiovascular mortality risk. There are no additional metabolic obesity complications. Other medical conditions as above. Regarding her lifestyle, as above, she has several behavioral contributors; her physical activity is non-existent. Overall, it is clear that her quality of life is moderately compromised by her weight. It is likelya combination of weight loss therapies will be needed. She appears motivated today. ASSESSMENT/PLAN: 1. Gastroesophageal reflux disease without esophagitis - ICD9: 530.81, ICD10: K21.9 (primary diagnosis) - omeprazole - [facility] 2. Malaise and fatigue - ICD9: 780.79, ICD10: R53.81, R53.83 - VITAMIN D 25 HYDROXY - THYROID STIMULATING HORMONE 3. Pain in both knees, unspecified chronicity - ICD9: 719.46, ICD10: M25.561, M25.562 4. Screening for deficiency anemia - ICD9: V78.1, ICD10: Z13.0 - COMPLETE BLOOD COUNT 5. Screening for diabetes mellitus - ICD9: V77.1, ICD10: Z13.1 - INSULIN ASSAY BLOOD - COMPREHENSIVE METABOLIC PANEL 6. Screening for metabolic disorder - ICD9: V77.99, ICD10: Z13.228 - COMPREHENSIVE METABOLIC PANEL 7. Screening for thyroid disorder - ICD9: V77.0, ICD10: Z13.29 - THYROID STIMULATING HORMONE 8. Encounter for vitamin deficiency screening - ICD9: V77.99, ICD10: Z13.21 - VITAMIN D 25 HYDROXY 9. Class 3 severe obesity with serious comorbidity and body mass index (BMI) of 45.0 to 49.9 in adult, unspecified obesity type (HCC) - ICD9: 278.01, V85.42, ICD10: E66.01, Z68.42 Plan: -- Based on the severity and resistance of the obesity/overweight with co- morbidities, I believe surgical intervention is the best and most appropriate nursing home therapeutic option. The benefits of long-term weight loss with metabolic surgery vs weight loss with dietary changes discussed including d ifferences in hunger and satiety hormones and metabolism. Surgical options briefly discussed. She is interested and consult to BMI placed. We will continue with combination of behavioral and future pharmacological intervention - VITAMIN D 25 HYDROXY - INSULIN ASSAY BLOOD - COMPLETE BLOOD COUNT - COMPREHENSIVE METABOLIC PANEL - THYROID STIMULATING HORMONE - [facility] - Given information on AOM options to read at home due to granddaughter needing to be taken home -- We discussed several strategies to track food intake and increase mindfulness around eating while will decrease calorie intake. She was counseled on the following: Eating primarily whole foods. Limit carbs, especially processed carbs. Do not drink your calories 30 grams of protein for breakfast decreases your hunger during the day by up to 40 % Premier Protein or generic 30 gm protein 1 gm sugar Walk for 15 minutes immediately a meal. -- Encouraged the patient to improve her physical activity. Although cardiovascular exercise is most beneficial for weight loss initially, we discussed healthy muscle from a combination of resistancetraining and cardiovascular exercise is the best nursing home plan. An overall goal of 150-200 minutesper week of exercise has been effective in weight loss and maintenance. -- Reviewed that monitoring weight daily and food intake can have a positive impact on overall weight loss and maintenance of weight loss. Activity tracking can be used to stay on target for exercisehowever should not be used to reward oneself She understands that there can be limitations of pharmacotherapy due to contraindications, side effects and cost. Patient was told to contact her insurance company to see what AOMs and supervised behavioral medical appointments are currently covered. Patient understands she will have more success when following a healthy lifestyle. We reviewed continued use of online tracking of daily weights, food journal and if desired physical activity. We reviewed that during management she is to report any concerning side effects of any pharmacotherapy she is placed on. She understands that she will need routine follow up in the office. Prior to any virtual visits in the future she will need to check her Blood pressure, weight, and pulse. Prescription instructions reviewed with patient as applicable. Potential red flag symptoms discussed with the patient. Reviewed appropriate action plan to take ifred flag symptoms occur. Patient agreeable to treatment plan. -- follow-up visit in 6 weeks for management of above interventions Sonia Vizcarra CNP Advanced Education from the Obesity Medicine Association I spent a total of 75 minutes on the date of the service which included preparing to see the patient, [id number] patient care, completing clinical documentation, obtaining and/or reviewing separately obtained history, performing a medically appropriate examination, counseling and educating the pat ient/family/caregiver, and ordering medications, tests, or procedures. documented in this encounterCleveland [facility]07-[facility]24 NoteHNO ID: [id number] Author: SONIA VIZCARRA APRN.CNP Service: ? Author Type: Nurse Practitioner Type: Progress Notes Filed: 05/06/2024 20:34 Note Text: Accompanied by 2.5 yo granddaughter. Patient Summary: Adilene Koo is a 53 year old female with obesity who presents for an initial evaluation of overweight/obesity to treat and prevent co-morbidities and is interested in combination of behavioral and pharmacological. Motivation for seeking treatment for the disease of overweight/obesity : To feel better and relieve joint pain Goal weight: 200 lb Lowest recall weight: 124 lb Highest non- recall weight: 284 lb Patient identified barriers to weight loss: knee pain Weight History: She reports a strong family history of obesity and early adulthood weight gain. She states her weight gain is related to the following factors, including weight retention , onset of menopause, reduced physical activity, and consumption of unhealthy foods. History of weight loss with regain? Y - Last Wt 05/06/24 : 129.2 kg (284 lb 12.8 oz) 5% weight loss = 271 lbs, 10% weight loss = 256 lbs WEIGHT GRAPH: Diet/Nutrition overview: Awake - 0330 0600 - DD caramel latte sips until 11 am. WE - no coffee B - 0800 2 eggs with cottage cheese, spinach, cruz and cheese, water. WE eggs and sausage or pancakes or biscuits and gravy S - none L - 1200 raw veg with Ranch WE - grilled ham/cheese or SKIP S - none D - 1730 chicken with rice or mac n cheese and hotdogs or biscuits and sausage gravy S - sometimes popcorn or sweetened cereal with milk If stressed - banana split and will eat all day Fluids: water, coffee, unsweetened iced tea Bedtime - 2100 Quality of diet: 24hr recall suggests unhealthy diet. Characterization of diet:Structured, evening snacking, and increased consumption of sugar sweetened beverages. Environmental Services Director of impaired eating habits:mindlessness and stress Eating Disorder no Cravings: ice cream, DD caramel latte Sleep Duration: 6 hours. ISAIAH NO ; CPAP NO Stress Stress:yes , Cause:Work and Personal - Dad has Alzheimer's and signed himself out of [facility] and she is main caregiver and she is raising 2.5 yo granddaughter Obesity Related Comorbidities: Prior Weight Loss Surgery:No PAST MEDICAL HISTORY Diagnosis Date Encounter for lipid screening for cardiovascular disease 01/23/2024 GERD (gastroesophageal reflux disease) Neck mass 03/25/2023 Right side: CT 03/2023 was neg. Obesity, Class III, BMI 40-49.9 (morbid obesity) (HCC) 03/25/2023 Seasonal allergies 03/25/2023 Well adult exam 03/25/2023 last done: 03/25/2023 PAST SURGICAL HISTORY Procedure Laterality Date PAST SURGICAL HISTORY OF Pinning right great toe REPAIR UMBILICAL AMINTA,5+Y/O,REDUC VAGINAL HYSTERECTOMY TODD, has both ovaries FAMILY HISTORY Problem Relation Age of Onset Breast Cancer Mother Hypertension Mother Pancreatic Cancer Mother Obesity Mother Prostate Cancer Father Colon Cancer Father Obesity Father Obesity Sister Heart Attack Brother Alcohol abuse Brother Obesity Brother Obesity Maternal Grandfather Social History Tobacco Use Smoking status: Never Smokeless tobacco: Never Vaping Use Vaping Use: Never used Substance Use Topics Alcohol use: Never Drug use: Never AOM Medications: none Weight Promoting Medications: none Diet/weight loss History: Past weight loss attempts? High Protein and exercise . [employer] Exercise: Regular exercise: no Strength/resistance exercise:no Barriers to regular exercise? Knee pain Work-related activity:Sedentary. 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 Waist Circumference: 48.5 in Neck Circumference: 14.5 in GENERAL: Female in NAD. Central adiposity. SKIN: acanthosis nigricans no, Skin tags: no Hirsutism: no HEENT: PERRL, No supraclavicular adiposity. No dorsal adiposity. RESPIRATORY: CBTA CARDIAC: RRR ABDOMEN: pannus; EXTREMITIES: peripheral edema: yes Results: reviewed with the patient No visits with results within 3 Month(s) from this visit. Latest known visit with results is: Appointment on 04/17/2023 Component Date Value Ref Range Status Hemoglobin A1C 04/17 (more content not included)...[facility] 05-05-2024 Instructions* Patient Instructions* Sonia Vizcarra APRN.[employer] - 05/05/2024 1:41 PM EDT Images from the original note were not included. Weight Management: You have taken the initiative to become a healthier version of yourself and to decrease the risks that come with the diagnosis of obesity or being overweight. We are happy to help you along this journey but know this is a lifetime commitment to yourself. Losing just 3-10 % of your body weight can decrease your risks of many other serious diseases like diabetes, heart disease, osteoarthritis, hypertension, cancer and so many others. During this time you will have triumphs, setbacks and plateaus-your body will fight against you but we are here to give you the tools and the resources to continue to reach your goals. We recommend during this time that you track your weight daily or at least five times per week as well as tracking your nutrition. You may track your activity but do not use hitting your fitness goals as a reward system as this can derail your success. We recommend weekly physical activity of 150-200 min/week-although physical exercise, this will be especially important for weight maintenance. Exercise can have many other benefits including improving insulin resistance, improving balance, bone health, improving mental health and cardiovascular health. Do not feel overwhelmed - we will discussthis more at your visits. Our time will be limited with each visit but we will try to touch on factors that are important to you and to your overall goals. We will try to set a goal at the end of each visit and then decide onwhat we want to accomplish with your upcoming visits. On your After Visit Summary (AVS), we will provide you with information that may be useful during this journey so please remember to read the information given. Check your AVS a few days after your appointment because we may have added more information specifically for you. Remember that if you are placed on medications, they are tools that can help you succeed but you must put in the work. Your nutrition will be the main factor. There are medications that work well forsome and not for others- so it may take time to find the right combination for your body's needs. Please remember that factors such as other health co-morbidities one might have, as well as insurance coverage, will play a factor in determining which medications you can take. Most of the newer medications that are all the craze ,injectables, may not be covered or will only be covered if you fail months of oral medications or have Type 2 diabetes so please be patient with the process. It would be beneficial for you to determine what your insurance covers as far as Anti-Obesity Medications (AOMs), Nutritional Counseling, behavioral intervention and weight loss surgery. Please call your health insurance prior to your first appointment and write down coverage for each of those therapies. Most importantly, remember that ultimately our goal is to help you get to a healthier weight which will decrease your overall health risks. We will work together as a team and try to reach your personalized goals as well. Follow-up appointments Please arrive to follow-up visits a minimum of 15 minutes prior to your appointment. Follow-up weight management visits can be virtual. You will need to report a current blood pressure, heart rate (pulse) and weight at the beginning of each virtual appointment so you will need to have a reliable BP cuff, either wrist or upper arm. If you need to reschedule your appointment time or switch from an in-office visit to a virtual visit or vice versa, you need to call our office as we have designated appointment slots. This should not be done on [facility] as you will not be scheduled appropriately and will need to be rescheduled. We appreciate that you have entrusted us with your health and know that we are committed to this process with you. Sincerely, Deanna Leger MD, RAJ SMITH & Sonia Vizcarra CNP Advanced Education from the Obesity Medicine Association Obesity Obesity is a disease that affects nearly one-third of the adult [place] population (approximately 60 million). The number of overweight and obese Americans has continued to increase since 1960, a trend that is not slowing down. Today, 64.5 percent of adult Americans (about 127 million) are categorized as being overweight or obese. Each year, obesity causes at least 300,000 excess deaths in the [place] and healthcare costs of [place] adults with obesity amount to approximately $100 billion. (AOA) Obesity is a complex, multi-factorial chronic disease involving: Environmental (social and cultural) The tendency toward obesity is a result of our environment: lack of physical activity along with high-calorie, low-cost foods. Home, work, school, and even the community can inhibit a healthy lifestyle. Genetic (Hereditary plays a large role in determining how susceptible people are to overweight and obesity). Genes also influence how the body arevalo calories for energy and stores fat. Physiologic, metabolic, behavioral (eating too many calories while not getting enough exercise) andpsychological components. It is the second leading cause of preventable in the [place] Behavioral changes brought on by economic development, modernization and urbanization have been linked to therise in global obesity. Calculating BMI Body Mass Index (BMI) is a measurement tool used to determine excess body weight. Overweight is defined as a BMI of 25 or more, obesity is 30 or more, and severe obesity is 40 or more. You can visit www.nhlbi.nih.gov to estimate your BMI. Obesity Related Health Conditions The morbidity and mortality risk from being overweight is proportional to its degree. Individuals with morbid obesity, therefore, have the highest risk for developing numerous illnesses that often reduce mobility and quality of life due to their excess weight. In particular, type 2 diabetes, gallbladder disease and osteoarthritis have been found to increase concurrently with higher BMI. Prematuredeath, a 20-year shorter life span, has also been found in individuals with morbid obesity. All of the systems that make the body function are affected by morbid obesity. Type 2 diabetes Gallbladder disease and gallstones Liver disease Osteoarthritis, a disease in which the joints deteriorate. This is possibly the result of excess weight on the joints. Gout, another disease affecting the joints Pulmonary (breathing) problems, including sleep apnea in which a person can stop breathing for a short time during sleep Reproductive problems in women, including menstrual irregularities and infertility Gastroesophageal reflux/heartburn Hypertension Heart Disease Depression Psychological disorders/social impairments Urinary Stress Incontinence Obesity is also linked to higher rates of certain types of cancer. Obese men are more likely than non-obese men to from cancer of the colon, rectum, or prostate. Obese women are more likely than non-obese women to from cancer of the gallbladder, breast, uterus, cervix, or ovaries [email or web address]-[email or web address] ducation - Eat primarily whole foods. Limit carbs, especially processed carbs. Eat - Meat, vegetables and fruits with skin on if possible, eggs, cheese. - Do not drink your calories - 30 grams of protein for your first meal of the day decreases your hunger during the day by up to 40 %. Options include: Premier Protein or generic 30 gm protein 1 gm sugar or 5 eggs or 2-3 eggs andsome unbreaded meat and/or cheese. No fruit, vegetables, bread, grain, yogurt, Smoothies, etc. Try Cafe Latte. - Walk for 15 minutes immediately after meal. A Closer Look at Medical Weight-loss Medications: Phentermine (Adipex , Lomaira and Suprenza ) The average weight-loss results from prescription weight-loss drugs are 5-10% of your starting weight. It is important to know that everyone responds differently to medications. The average result will be seen by most people who take the medication, while others will see a larger amount of weight-loss or none at all. How does it work? Phentermine is a weight-loss medication that is available by prescription only and has been FDA-approved since 1958. It works on chemicals in your brain to decrease your appetite and includes a mild stimulant to give you energy. Phentermine is a pill taken once a day in the morning and is intended for short-term use. Common side effects are dry mouth and sleepiness. Weight-loss: The average weight-loss is 4-5% of your initial body weight after one year. For a person weighing 200 pounds, that means about a 10- pound weight-loss. Concerns: The stimulant may increase your blood pressure and heart rate, so you must be monitored by an HCP who is experienced in prescribing this medication. Patients with some heart conditions (such as uncontrolled blood pressure), glaucoma, stroke, or overactive thyroid should avoid this medication. Orlistat (Xenical and Chang ) How does it work? Orlistat is available bjyj-pxl-irpzsit as chang and in a higher-dose by prescription called Xenical . Both are FDA-approved for weight- loss and work by decreasing the amount of fat your body absorbs. It is taken three times per day before meals that contain dietary fat. Orlistat allows your body to only absorb 2/3 of the calories from the fat consumed in your meal. The other 1/3 is carried away indigestion and becomes part of your stool. More information can be found at [employer]. Weight-loss: The average weight-loss is 5% of your initial body weight. For a person weighing 200 pounds, that means about a 10- pound weight-loss. Concerns: This medication does not work well for people already eating a low-fat diet as their calories from fat are already low. People taking Orlistat should take a multivitamin as there is a chance for vitamin deficiency. Side effects are limited but can include cramps, gas, stool leakage, oily spotting, and gas with discharge. These symptoms will improve with a lower-fat diet. Naltrexone HCI/Bupropion HCI (Contrave ) $99/month How does it work? Contrave was approved by the FDA in 2013 and is a combination of two medications approved for other medical conditions. Naltrexone is a medication previously aproved for the treatment of narcotic and alcohol dependency. Bupropion is approved as an anti-depressant and a medication to help people stop smoking. When used together, they work to decrease appetite and control eating. Weight-loss: Among individuals who took Contrave for one year, 65% lost at least 5% of their initial body weight (10-pound weight loss for a person who weighs 200 pounds) and 39% lost at least 10% oftheir body weight (20 pound weight-loss for a person who weighs 200 pounds). Concerns: The most common side effects are nausea, constipation, headache, dry mouth, vomiting, anddizziness. This medication also had a small occurrence (6%) of increased blood pressure and heart rate. Phentermine-Topiramate ER (Qsymia ) $99-$150/month How does it work? This combination of medication was approved by the FDA in 2011. Phentermine is a weight-loss drug that received FDA approval in 1959. Topiramate is traditionally used for migraine prevention and in seizure prophylaxis. Together, they work to decrease your appetite and increase a fe eling of fullness after eating. Weight-loss: Weight loss can vary by dosage. At the lower dose, 62% of individuals on Qsymia lost 5% of their starting body weight. (10-pound weight loss for a person who weighs 200 pounds). Among people taking the higher dose, 48% lost 10% of their starting weight (20-pound weight loss for a person who weighs 200 pounds). Concerns: The most common side effects are dry mouth, constipation, and qfun-atn-ooaaxrq feelings in the face, arms, hands, and feet. Insomnia may occur if taken later in the day. Women who are or who are considering becoming should not take Qsymia as it has been known to cause defects. Liraglutide Injection (Saxenda ) How does it work? Liraglutide is an injectable medication that was approved by the FDA in 2013. It works by increasing your body s natural production of insulin, which regulates blood sugar levels. It also decreases the production of a hormone that opposes insulin, slows down the emptying of the stomach, and helps regulate fullness. It is also used to treat type 2 diabetes. Weight-loss: In a study of individuals who were on Saxenda for one year, 73% lost at least 5% of their starting body weight (10-pound weight loss for a person who weighs 200 pounds), and 41% lost at least 10% of their initial body weight (20-pound weight loss for a person who weighs 200 pounds). Concerns: The most common side effects are nausea, vomiting, diarrhea, and constipation. Semaglutide Injection (Wegovy ) How does it work? Wegovy is an injectable prescription medicine used for adults with obesity or overweight (excess weight) who also have weight-related medical problems to help them lose weight and keep the weight off.Medically speaking, Wegovy is a yokpbdhg-fbym-rekewbe-1 (GLP-1) receptor agonist that is engineered in the laboratory. What this means is that Wegovy mimics the naturally occurring GLP-1 hormone that is released by our intestines into our bloodstream within minutes after we ingestfood. Weight-loss: The effectiveness and safety of Wegovy have been demonstrated in the Semaglutide Treatment Effect for People with Obesity (STEP) program. The four STEP studies involved 4,500 individualsfrom around the world that were either affected by obesity or classified as overweight with co-existing medical conditions resulting from their excess weight. The average weight-loss was 15 to 17% ofthe individual s starting weight. For an individual who weighs 230 lbs.,this translates into a 35 to 39 lb. weight-loss. In the STEP 1 study, one- third of individuals were able to lose at least 20% of their weight. Concerns: The most common side effects are nausea, diarrhea, vomiting and constipation. https://www.obesityaction.org/education-support/treatment/blmddvg-ydardc-vayfiai ent/ Metformin How does it work? Metformin helps to lower blood glucose levels by reducing the amount of glucose produced and released by the liver, and by increasing insulin sensitivity. It has now been proven to prevent or delay diabetes. Metformin and Type 2 Diabetes Prevention Diabetes Spectrum (diabetesjournals.org) Weight loss: Large cohort studies have shown weight loss benefits associated with metformin therapy. Emerging evidence suggests that metformin-associated weight loss is due to modulation of hypothalamic appetite-regulatory centers, alteration in the gut microbiome, and reversal of consequences of aging. Metformin is also being explored in the management of obesity s sequelae such as hepatic steatosis, obstructive sleep apnea and osteoarthritis. Effectiveness of metformin on weight loss in non-diabetic individuals with obesity - PubMed (nih.gov) Is metformin a wonder drug? - [facility] Concerns: Most common side effects of this medication include nausea, changes in bowel habits, abdominal discomfort, and flatulence. Taking the medication with food will help. Side effects also typically get better with time. Rarely, a severe side effect called lactic acidosis can occur. If you experience malaise, muscle aches, difficulty breathing, or severe abdominal pain, please seek immediatemedical attention. Buproprion (Wellbutrin) How does it work? It stimulates noradrenaline, dopamine, and (less-so) serotonin receptors. This gives you more energy, suppresses your appetite, and enhances your mood. Stress increases cortisol andghrelin which stimulate your appetite. Dopamine and noradrenaline suppress your appetite. Does Bupriopion cause weight loss? It can. Bupropion (the generic form of Wellbutrin) was initially prescribed as an antidepressant. It is the only antidepressant associated with weight loss (Caserero, 2019). Healthcare providers noticed that mostly pleasant side effect, and today bupropion is sometimes prescribed as part of amedication for weight loss (naltrexone/bupropion, brand name Contrave), as well as a stop- smoking aid (brand name Zyban). A 2016 study that analyzed the long-term weight loss effect of various antidepressant medications found that non-smokers who took bupropion lost 7.1 pounds over two years. (This effect was not seen in smokers). Users of the other antidepressants in the study gained weight (Alison, 2016). Bupropion seems to be effective for weight-loss maintenance as well. A 2012 study found that obese adults who took bupropion SR (standard release) in 300mg or 400mg doses lost 7.2% and 10% of their body weight, respectively, over 24 weeks and maintained that weight loss at 48 weeks (Johnnie, 2012). And a 2019 review of 27 studies on antidepressants and weight gain found that antidepressant use increases body weight by an average of 5%--except bupropion, which is associated with weight loss (Rudy-Pedrero, 2019). Concerns: Side effects can include headache, weight loss, dry mouth, trouble sleeping (insomnia), nausea, dizziness, constipation, fast heartbeat, increased blood pressure, and sore throat. These will often improve over the first week or two as you continue to take the medication. https://ro.co/health-guide/ctdvhnjfnx-tmk-bbmfzs-loss/ https://www.advisory.com/blog//wvhbrz-lohi-lznpz documented [facility] Telephone encounter Note * Telephone Encounter - Sonia Vizcarra APRN.CNP - 05/04/2024 1:04 PM EDT Left message to call office regarding weight management billing. 05/04/2024 1:05 PM Sonia Vizcarra APRN.CNP [facility]07-03-2024 Miscellaneous Notes* Telephone Encounter - Sonia Vizcarra APRN.CNP - 05/04/2024 1:04 PM EDT Left message to call office regarding weight management billing. 05/04/2024 1:05 PM Sonia Vizcarra APRN.CNP documented in this encounterC[facility]24 NoteHNO ID: [id number] Author: FRANCESCO DIAZ MD Service: ? Author Type: Physician Type: Progress Notes Filed: 05/04/2024 12:12 Note Text: Patient's reason for the appt was knee pain and then we discussed her GERD symptoms and advised her that her Obesity may be contibuting to this. Order of diagnosies was incorrect. And should be as below. ASSESSMENT/PLAN: 1. Pain in both knees, unspecified chronicity - ICD9: 719.46, ICD10: M25.561, M25.562 (primary diagnosis) - as per original note - XR KNEE GENERAL 4V AP BOTH/PA BOTH/LAT/MERC BILATERAL - CONSULT TO PHYSICAL THERAPY 2. Gastroesophageal reflux disease without esophagitis - ICD9: 530.81, ICD10: K21.9 - as per original note - OMEPRAZOLE 40 MG CAPSULE,DELAYED RELEASE 3. Obesity, Class III, BMI 40-49.9 (morbid obesity) ([facility]) - ICD9: 278.01, ICD10: E66.01 - as per original note - CONSULT TO WEIGHT MANAGEMENT NAVIGATION 4. Encounter for screening for diabetes mellitus - ICD9: V77.1, ICD10: Z13.1 - as per original note - HEMOGLOBIN A1C 5. Encounter for lipid screening for cardiovascular disease - ICD9: V77.91, V81.2, ICD10: Z13.220, Z13.6 - as per original note - LIPID PANEL, NONFASTING Francesco Diaz, [facility]05-15-2024 Telephone encounter Note* Telephone Encounter - Kwaku Lema RN - 03/16/2024 4:22 PM EDT Patient phoned to let pcp know, insurance told her the code used for billing the office visit was E6601. Patient states this code is for obesity and obesity is not covered. Gave patient pcp message below. Patient states the 72646 was not sent to insurance, the E6601 was. [facility]05-15-[facility] Miscellaneous Notes* Telephone Encounter - Kwaku Lema RN - 03/16/2024 4:22 PM EDT Patient phoned to let pcp know, insurance told her the code used for billing the office visit was E6601. Patient states this code is for obesity and obesity is not covered. Gave patient pcp message below. Patient states the 32818 was not sent to insurance, the E6601 was. * Telephone Encounter - Francesco Diaz MD - 03/16/2024 3:55 PM EDT Let patient know that the financial number she was given is who she should be calling when questioning a bill. They will review it and determine if there are any issue and in an adjustment is needed.The code used for the billing was 61982 which is a standard office visit code for an established patient. Whether obesity is in the diagnoses should not affect if insurance pays for the office visit or not. Because obesity is a risk for the development of other health related issues it's going to end up in the billing at least once a year. In fact it was on her diagnosis at her appt on 06/20/2023, and 03/25/2023. I have never had a patient tell me that their insurance refused to cover a office visit because obesity was one of the diagnoses used. This makes me wonder if she has a deductible she has to meet first before insurance starts to coverher office visits. * Telephone Encounter - Marcella Oglesby MA - 03/16/2024 2:51 PM EDT Spoke with patient and gave her Dr Diaz's response and she was upset. She doesn't understand. Shesaid they have talked about her weight in the past and he has never put that as a dx code for morbid obesity. I offered the [employer] number. She indicated that they will not help her because she make $85,000 a year. She is trying to raise her 2 year grandchild and take care of her dad all on her own and now she has a $649.00 bill for a 15minute visit. She said if they will not cover this visit because of the obsiety then will not coverto help her lose weight. Marcella Oglesby MA * Telephone Encounter - Francesco Diaz MD - 03/16/2024 2:04 PM EDT Let patient know that we did discuss her obesity at the appt and that it was most likely the biggest contributor to her knee pain. I even referred her to the weight loss navigator program. To remove the diagnosis just so insurance would cover it is considered insurance fraud. I could lose my licence, pay a fine and go to alf for doing that. Patient should have been given this info: Have financial assistance or financial related questions about an upcoming or future service? Use [employer] to schedule a callback with a Patient Refractory Tile Helper at [facility]/pfacallback or call toll-free at [phone]. Have questions regarding your medical bill for a past service? Use [employer] to schedule a callback with a Pharmaceutical Engineer at [email or web address]/billing or call us at [phone] or toll-free at [phone]. * Telephone Encounter - Penny Concepcion RN - 03/16/2024 11:06 AM EDT Pt calling in with an insurance issue for her appt on 01/[address] Diaz. Pt states her insuranceand the [facility] coders her are telling her that the appt was coded only for obesity. Pt came in for knee pain and states also for a pulled muscle in her knee. That is why she came in. States insurancecompany is telling her that the appointment was coded for morbid obesity and they will not cover itbecause of that. Pt states she did not come in for her weight and states the bill is $600 and she can't afford to pay that. Messaged someone in the [facility] [employer] coding department who states the visit was coded as morbid obesity, pain in right and left knee, and GERD. Called and spoke with pt again and told her that the bilat knee pain and GERD were on there as well. Explained that she should call her insurance company again if they told her the only code was the morbid obesity. Pt states she was under the impression bythe insurance company that if morbid obesity is on as a code, they automatically will not pay anything. Pt is asking if Dr. Diaz can remove the code of morbid obesity from her 01/23/24 appointment so her insurance will pay for the appt. She was told if [facility] resends the bill then they can change the coverage for it. documented in this encounterC[facility]05-[facility] Telephone encounter Note * Telephone Encounter - Francesco Diaz MD - 03/16/2024 3:55 PM EDT Let patient know that the financial number she was given is who she should be calling when questioning a bill. They will review it and determine if there are any issue and in an adjustment is needed.The code used for the billing was 84354 which is a standard office visit code for an established patient. Whether obesity is in the diagnoses should not affect if insurance pays for the office visit or not. Because obesity is a risk for the development of other health related issues it's going to end up in the billing at least once a year. In fact it was on her diagnosis at her appt on 06/20/2023, and 03/25/2023. I have never had a patient tell me that their insurance refused to cover a office visit because obesity was one of the diagnoses used. This makes me wonder if she has a deductible she has to meet first before insurance starts to coverher office visits. [facility]05-[facility] Telephone encounter Note* Telephone Encounter - Marcella Oglesby MA - 03/16/2024 2:51 PM EDT Spoke with patient and gave her Dr Diaz's response and she was upset. She doesn't understand. Shesaid they have talked about her weight in the past and he has never put that as a dx code for morbid obesity. I offered the [employer] number. She indicated that they will not help her because she make $85,000 a year. She is trying to raise her 2 year grandchild and take care of her dad all on her own and now she has a $649.00 bill for a 15minute visit. She said if they will not cover this visit because of the obsiety then will not coverto help her lose weight. Marcella Oglesby MA [facility]05-[facility] Telephone encounter Note* Telephone Encounter - Francesco Diaz MD - 03/16/2024 2:04 PM EDT Let patient know that [facility] and that it was most likely the biggest contributor to her knee pain. I even referred her to the weight loss navigator program. To remove the diagnosis just so insurance would cover it is considered insurance fraud. I could lose my licence, pay a fine and go to alf for doing that. Patient should have been given this info: Have financial assistance or financial related questions about an upcoming or future service? Use [employer] to schedule a callback with a Patient Refractory Tile Helper at [email or web address]/stephie or call toll-free at [phone]. Have questions regarding your medical bill for a past service? Use [employer] to schedule a callback with a Pharmaceutical Engineer at [email or web address]/billing or call us at [phone] or toll-free at [phone]. [facility] Telephone encounter Note* Telephone Encounter - Penny Concepcion RN - 03/16/2024 11:06 AM EDT Pt calling in with an insurance issue for her appt on 01/[address] Diaz. Pt states her insuranceand the [facility] coders her are telling her that the appt was coded only for obesity. Pt came in for knee pain and states also for a pulled muscle in her knee. That is why she came in. States insurancecompany is telling her that the appointment was coded for morbid obesity and they will not cover itbecause of that. Pt states she did not come in for her weight and states the bill is $600 and she can't afford to pay that. Messaged someone in the [facility] [employer] coding department who states the visit was coded as morbid obesity, pain in right and left knee, and GERD. Called and spoke with pt again and told her that the bilat knee pain and GERD were on there as well. Explained that she should call her insurance company again if they told her the only code was the morbid obesity. Pt states she was under the impression bythe insurance company that if morbid obesity is on as a code, they automatically will not pay anything. Pt is asking if Dr. Diaz can remove the code of morbid obesity from her 01/23/24 appointment so her insurance will pay for the appt. She was told if [facility] resends the bill then they can change the coverage for it. [facility]03-23-[facility] Instructions* Patient Instructions* Francesco Diaz MD - 01/23/2024 11:10 AM EDT Please get labs one on or after 03/11/2024 prior to your next visit. documented in this encounterC[facility]03-[facility]24 History of Present illness Narrative* Francesco Diaz MD - 01/23/2024 10:48 AM EDT Chief Complaint Patient presents with: Heartburn Bilateral Knee Pain HPI Adilene Koo is a 53 year old female who presents here today for Above Complaints.. Patient complains of bilateral knee pain for about 2 months. No known trauma. She is less active atwork now and thinks this may be causing it. No swelling or redness of the knees. No grinding with walking. Has had 2-3 times where it felt like the left knee might give out . No locking. Has been getting heart burn for the last two months. Notes it when she eats something. Gets a burning sensation in the epigastric area. No significant belching. Will take a tums and it helps. Past medical history, appointments, medications, allergies reviewed. Previous Medical History PAST MEDICAL HISTORY Diagnosis Date Neck mass 03/25/2023 Right side: CT 03/2023 was neg. Obesity, Class III, BMI 40-49.9 (morbid obesity) ([facility]) 03/25/2023 Seasonal allergies 03/25/2023 Well adult exam 03/25/2023 last done: 03/25/2023 Previous Surgical History PAST SURGICAL HISTORY Procedure Laterality Date PAST SURGICAL HISTORY OF Pinning right great toe REPAIR UMBILICAL AMINTA,5+Y/O,REDUC VAGINAL HYSTERECTOMY TODD, has both ovaries Family History FAMILY HISTORY Problem Relation Age of Onset Breast Cancer Mother Hypertension Mother Pancreatic Cancer Mother Prostate Cancer Father Colon Cancer Father Patient Allergies ALLERGIES Allergen Reactions Animal Dander Other: See Comments sneezing and stuffy nose Pollen Extracts Other: See Comments sneezing Current Medications Current Outpatient Medications on File Prior to Visit Medication Sig azelastine-fluticasone (DYMISTA) 137-50 mcg/spray spry Use 1 [place] in each nostril twice daily. triamcinolone (KENALOG IN ORABASE) 0.1 % paste Apply to affected areas 2-3 times a day. montelukast (SINGULAIR) 10 mg tablet Take 1 tablet by mouth daily at bedtime. (Patient taking differently: Take 10 mg by mouth daily at bedtime. Take 2 tablets daily) No current facility-administered medications on file prior to visit. Social History Social History Tobacco Use Smoking status: Never Smokeless tobacco: Never Vaping Use Vaping Use: Never used Substance Use Topics Alcohol use: Never Drug use: Never Review of Symptoms REVIEW OF SYSTEMS See HPI EXAM: BP 142/86 Pulse 67 Resp 18 Wt 128.8 kg (284 lb) SpO2 97% BMI 49.91 kg/m General Appearance: Well appearing, alert, in no acute distress, well-hydrated, well nourished. andMorbidly obese. Abdomen: Normal abdominal exam, Abdomen soft, non-tender. Bowel sounds normal. No masses, organomegaly. Musculoskeletal: both knees show no erythema or swelling. No grinding or popping. ACL, PCL, MCL andLCL were all strong with good end points. Health Maintenance List Pap Testing Never done HPV Testing Never done Mammogram Screening Never done Colorectal Cancer Screening Never done Shingrix Vaccine(1 of 2) Never done Influenza Vaccine(1) Never done Covid-19 Vaccine(4 - season) due on 07/03/2023 Depression Assessment due on 11/02/2023 Diabetes Screening due on 04/17/2026 Lipid Screening due on 04/17/2028 DTaP,Tdap,Td Vaccine(3 - Td or Tdap) due on 03/25/2033 Hepatitis C Screening Completed HIV Screening Completed Hepatitis B Vaccine Discontinued Data reviewed A/P ASSESSMENT/PLAN: 1. Obesity, Class III, BMI 40-49.9 (morbid obesity) (HCC) - ICD9: 278.01, ICD10: E66.01 (primary diagnosis) Weight increasing Consult to weight navigation - discussed that this may be the biggest contributor to her knee pain. 2. Pain in both knees, unspecified chronicity - ICD9: 719.46, ICD10: M25.561, M25.562 - suspect related to weight - check x-ray Consult PHYSICAL THERAPY 3. Gastroesophageal reflux disease without esophagitis - ICD9: 530.81, ICD10: K21.9 - Begin treatment with Prilosec 40 mg QD 4. Encounter for screening for diabetes mellitus - ICD9: V77.1, ICD10: Z13.1 Check - HGB A1C 5. Encounter for lipid screening for cardiovascular disease - ICD9: V77.91, V81.2, ICD10: Z13.220, Z13.6 Check - LIPID PANEL, NONFASTING Requested Prescriptions Signed Prescriptions Disp Refills omeprazole (PRILOSEC) 40 mg capsule 30 capsule 5 Sig: Take 1 capsule by mouth once daily. Patient to f/u in March for WE will see how her GERD and knee pain is doing then. Francesco Diaz MD documented in [facility] encounterC[facility] Instructions* Patient Instructions* Francesco Diaz MD - 06/20/2023 9:28 AM EDT If allergies not improved with the addition of the nasal spray the next step would be seeing an proof machine operator. documented in this encounterC[facility]08-19-[facility]23 History of Present illness Narrative* Francesco Diaz MD - 06/20/2023 9:00 AM EDT Chief Complaint Patient presents with: Follow Up HPI Adilene Simona Koo is a 52 year old female who presents here today for follow up . Office visit - follow up 06/20/2023 Since last being seen. The aphthous ulcer resolved. The lump on the left side of her neck has not resolved and is not any larger and not tender. CT of neck done 04/17/2023 and no abnormalities were seen. No masses. Patient took the Singulair with no improvement. She even tried to double up on the meds with no improvement . Office visit - establish/physical 03/25/2023 Would like to discuss allergy medications? Patient has had swollen gland right side of neck comes and goes and is worse with her allergies. Thinks she has had this for about a year. Lump/redness under tongue not sore. Noted Thursday night. Patient has not had a PCP in over 5 years. Past medical history, appointments, medications, allergies reviewed. Previous Medical History PAST MEDICAL HISTORY Diagnosis Date Obesity, Class III, BMI 40-49.9 (morbid obesity) ([facility]) 03/25/2023 Seasonal allergies 03/25/2023 Well adult exam 03/25/2023 last done: 03/25/2023 Previous Surgical History PAST SURGICAL HISTORY Procedure Laterality Date PAST SURGICAL HISTORY OF Pinning right great toe REPAIR UMBILICAL AMINTA,5+Y/O,REDUC VAGINAL HYSTERECTOMY TODD, has both ovaries Family History FAMILY HISTORY Problem Relation Age of Onset Breast Cancer Mother Hypertension Mother Pancreatic Cancer Mother Prostate Cancer Father Colon Cancer Father Patient Allergies ALLERGIES Allergen Reactions Animal Dander Other: See Comments sneezing and stuffy nose Pollen Extracts Other: See Comments sneezing Current Medications Current Outpatient Medications on File Prior to Visit Medication Sig triamcinolone (KENALOG IN ORABASE) 0.1 % paste Apply to affected areas 2-3 times a day. montelukast (SINGULAIR) 10 mg tablet Take 1 tablet by mouth daily at bedtime. No current facility-administered medications on file prior to visit. Social History Social History Tobacco Use Smoking status: Never Smokeless tobacco: Never Vaping Use Vaping Use: Never used Substance Use Topics Alcohol use: Never Drug use: Never Review of Symptoms REVIEW OF SYSTEMS See HPI EXAM: BP 144/94 (BP Site: Left Arm, BP Position: Sitting, BP Cuff Size: Large Adult) Pulse 62 Resp 16 Wt 123.4 kg (272 lb) BMI 47.80 kg/m BP 149/84 Pulse 62 Resp 16 Wt 123.4 kg (272 lb) BMI 47.80 kg/m Last 5 Encounter Wt Readings: Date: Wt: 06/20/2023 123.4 kg (272 lb) 03/25/2023 123.4 kg (272 lb) 10/24/2021 122 kg (269 lb) 10/17/2021 122.5 kg (270 lb) 09/25/2021 122.5 kg (270 lb) General Appearance: Well appearing, alert, in no acute distress, well-hydrated, well nourished. andMorbidly obese. Lungs: Lungs clear to auscultation. No wheezing, rhonchi, rales.. Heart: RRR without murmur, gallop, or rubs. No ectopy. Health Maintenance List PAP TESTING Never done HPV TESTING Never done MAMMOGRAM Never done COLORECTAL CANCER SCREENING Never done SHINGRIX VACCINE(1 of 2) Never done COVID-19 VACCINE(4 - Moderna series) due on 02/14/2022 INFLUENZA(1) due on 07/03/2023 DIABETES SCREEN due on 04/17/2026 LIPID SCREEN due on 04/17/2028 DTAP,TDAP,TD(2 - Td or Tdap) due on 03/25/2033 DEPRESSION ASSESSMENT Completed HEPATITIS C SCREENING Completed HIV SCREENING Completed HEPATITIS B Discontinued Data reviewed A/P ASSESSMENT/PLAN: 1. Seasonal allergies - ICD9: 477.9, ICD10: J30.2 (primary diagnosis) - will have stop the singulair and trial Dymisista nasal spray one spray each nostril BID. 2. Obesity, Class III, BMI 40-49.9 (morbid obesity) (HCC) - ICD9: 278.01, ICD10: E66.01 Stable - Behavioral intervention 3. Neck mass - ICD9: 784.2, ICD10: R22.1 - stable and imaging was normal. Will monitor and patient comfortable with this., 4. Elevated blood pressure reading without diagnosis of hypertension - ICD9: 796.2, ICD10: R03.0 - Encouraged dietary sodium restriction/DASH diet - Recommended regular aerobic exercise. - Recommend home blood pressure monitoring, to bring results in on next visit - Goal of BP <130/80 - patient will be back in the office on Thu with her father an=d will recheck her BP then F/u in march 2024 for VICKY Diaz MD documented in this encounterC[facility]06-[facility]23 Miscellaneous Notes* Telephone Encounter - Marcella Oglesby MA - 04/22/2023 4:56 PM EDT Patient came for her appointment. Had not checked her voicemails. Patient rescheduled and given results. Patient voiced understanding. Marcella Oglesby MA * Telephone Encounter - Marcella Oglesby MA - 04/22/2023 10:00 AM EDT Please see note that we need to reschedule patient's appointment today with Dr. Diaz is out ill. Marcella Oglesby MA * Telephone Encounter - Sue Ozuna LPN - 04/21/2023 1:13 PM EDT Left message for pt to contact office. Sue Ozuna LPN * Telephone Encounter - Francesco Diaz MD - 04/21/2023 12:24 PM EDT Let patient know the CT of her neck showed no masses, fluid collection or enlarged lymph nodes. Her blood sugar screen was normal. Her lipid panel was ok except her good chol (HDL) is low at 44 and goal is >50. Increased exercise can help raise this. documented in this encounterC[facility]06-16-[facility] History of Present illness Narrative* Tamie Ocampo, RT(R) - 04/17/2023 11:00 AM EDT Radiology Service Progress Note DATE OF SERVICE: April 17, 2023 TIME: 12:33 PM PATIENT IDENTITY VERIFICATION COMPLETED USING TWO (2) STANDARD IDENTIFIERS: Name and Date of confirmed by patient verbally. FALL SCREENING: Has the patient had 2 falls in the last year or 1 fall with injury or currently using an Ambulatory Assistive Device (Walker, Cane, Wheelchair, Crutches, etc.)? No PATIENT GENDER DATA: Female. status: : No status: NO. PATIENT RELEVANT IMPLANT DATA REVIEWED: Yes ALLERGIES: Reviewed and unchanged CONTRAST ALLERGY: NO. EXAM: CT -CONTRAST INDUCED NEPHROPATHY RISK FACTORS: Not applicable CREATININE: Creatinine Date Value Ref Range Status 11/21/2021 0.67 0.58 - 0.96 mg/dL Final eGFR-All Other Races Date Value Ref Range Status 11/21/2021 >60 . Final Comment: eGFR (Estimated GFR) Units of measure: mL/min/1.73 meters squared eGFR is derived from the reexpressed MDRD Study equation using the following parameters: serum creatinine, age, gender and race. The creatinine assay has been calibrated to be traceable to IDMS. An eGFR <60 mL/min/1.73m2 for >3 months is consistent with chronic kidney disease. Refer to KDOQI guidelines for clinical interpretation. In patients with unstable renal function, e.g. those with acute kidney injury, the eGFR may not accurately reflect actual GFR. Note: On 12/28/2021, the eGFR calculation will be updated to the NKF-ASN Task Force recommended 2020 CKD-EPI creatinine equation which does not include a race variable. For more information or to access a 2020 CKD-EPI calculator, visit the National Kidney Foundation website at kidney.org/professionals/kdoqi/gfr_calculator. eGFR- Date Value Ref Range Status 11/21/2021 >60 Final P.O.C.T. RESULTS: POC done: Yes, See Lab Tab April 17, 2023 TREATMENT: N/A PERIPHERAL IV DATA: Ambulatory: A peripheral IV was started in the Left antecubital site with a Angio cath: 22 gauge. RADIOLOGY DEPARTMENT: CT; Exam(s) Completed: Neck SIGNATURE: RT Clara(R) PATIENT NAME: Adilene Koo DATE: April 17, 2023 TIME: 12:33 PM documented in this encounterC[facility]04-24-2023 Miscellaneous Notes* Telephone Encounter - Marcella Oglesby MA - 02/23/2023 9:59 AM EDT Patient was scheduled. Marcella Oglesby MA * Telephone Encounter - Marcella Ogelsby MA - 02/19/2023 8:[address] Diaz ok to except patient as we see her father. Marcella Ogelsby MA Attempted to contact patient again. Will send my chart message. Marcella Oglesby MA * Telephone Encounter - Matilde Anthony Ma - 02/19/2023 8:07 AM EDT Left message for patient to call back, please verify father name and to make sure he is a ACTIVE patient of Dr. Diaz before request is routed to him to see if he will take her on. Matilde Anthony Ma * Telephone Encounter - Gayathri Lu - 02/18/2023 7:39 PM EDT Pt is wondering if she can establish with Daniel. Her dad is an established pt of his Gayathri Lu February 18, 2023 7:39 PM documented in this encounterC[facility]02-09-2022 History of Past illness Narrative* Problem Noted Date Resolved Date Closed fracture of right shoulder 12/11/2021 03/25/2023 documented as of this encounter (statuses as of 04/23/2023) [facility] History of Past illness Narrative* Problem Noted Date Diagnosed Date Resolved Date Closed fracture of right shoulder 12/11/2021 03/25/2023 documented as of this encounter (statuses as of 06/20/2023) [facility] History of Past illness Narrative* Problem Noted Date Diagnosed Date Resolved Date Closed fracture of right shoulder 12/11/2021 03/25/2023 documented as of this encounter (statuses as of 09/06/2023) [address]09-2022 History of Past illness Narrative* Problem Noted Date Diagnosed Date Resolved Date Closed fracture of right shoulder 12/11/2021 03/25/2023 documented as of this encounter (statuses as of 01/23/2024) [facility] of Past illness Narrative* Problem Noted Date Diagnosed Date Resolved Date Closed fracture of right shoulder 12/11/2021 03/25/2023 documented as of this encounter (statuses as of 01/25/2024) [facility]* Diagnosis Seasonal allergies- Primary Allergic rhinitis, cause unspecified Obesity, Class III, BMI 40-49.9 (morbid obesity) (HCC) Morbid obesity Neck mass Swelling, mass, or lump in head and neck Elevated blood pressure reading without diagnosis of hypertension documented in this encounter [facility]* Diagnosis Neck mass Swelling, mass, or lump in head and neck documented in this encounter [facility]* Diagnosis Obesity, Class III, BMI 40-49.9 (morbid obesity) (HCC)- Primary Morbid obesity Pain in both knees, unspecified chronicity Gastroesophageal reflux disease without esophagitis Esophageal reflux Encounter for screening for diabetes mellitus Screening for diabetes mellitus Encounter for lipid screening for cardiovascular disease Screening for lipoid disorders documented in this encounter [facility]* Diagnosis Encounter for screening mammogram for breast cancer documented [facility] this encounter [facility]* Diagnosis Gastroesophageal reflux disease without esophagitis- Primary Esophageal reflux Malaise and fatigue Other malaise and fatigue Pain in both knees, unspecified chronicity Screening for deficiency anemia Screening for other and unspecified deficiency anemia Screening for diabetes mellitus Screening for metabolic disorder Screening for thyroid disorder Encounter for vitamin deficiency screening Screening for other and unspecified endocrine, nutritional, metabolic, and immunity disorders Class 3 severe obesity with serious comorbidity and body mass index (BMI) of 45.0 to 49.9 in adult, unspecified obesity type (HCC) documented in this encounter [facility]* Diagnosis Vitamin D deficiency- Primary Unspecified vitamin D deficiency documented in this encounter [facility] note* Diagnosis Pain in both knees, unspecified chronicity documented in this encounter [facility] noteNo assessment information availableWCleveland Clinic [facility] Hospital Work Phone: Evaluation note* Diagnosis Encounter for screening mammogram for breast cancer documented in this encounter [facility] for referral (narrative)* Diagnostic Procedure Only (Routine) - Pending Review Specialty Diagnoses / Procedures Referred By [place] t Referred To Contact BR IMAGING Diagnoses Encounter for screening mammogram for breast cancer Procedures GILES SCREENING SCREENING MAMMOGRAPHY BI 2-VIEW BREAST INC CAD Francesco Diaz MD [address] [place] [address] Br [facility] [address] [place] [address] Referral ID Status Reason Start Date Expiration Date Visits Requested Visits Authorized [id number] Pending Review Auto-Generat ed Referral 03/02/2024 04/01/2025 1 1 [facility] for referral (narrative)* Diagnostic Procedure Only (Routine) - Closed Specialty Diagnoses / Procedures Referred By Contac t Referred To Contact XR IMAGING Diagnoses Pain in both knees, unspecified chronicity Procedures XR KNEE GENERAL 4V AP BOTH/PA BOTH/LAT/MERC BILATERAL RADIOLOGIC EXAM KNEE COMPLETE 4/MORE VIEWS Francesco Diaz MD [address] [place] [address] [place] [address] Referral ID Status Reason Start Date Expiration Date V isits Requested Visits Authorized [id number] Closed Auto-Generate d Referral 01/23/2024 02/21/2025 1 1 [facility] for referral (narrative)No reason for referral information availableWCleveland Clinic [facility] Hospital Work Phone: [facility] Narrative* Diagnostic Procedure Only (Routine) - Closed Specialty Diagnoses / Procedures Referred By Contac t Referred To Contact XR IMAGING Diagnoses Pain in both knees, unspecified chronicity Procedures XR KNEE GENERAL 4V AP BOTH/PA BOTH/LAT/MERC BILATERAL RADIOLOGIC EXAM KNEE COMPLETE 4/MORE VIEWS Francesco Diaz MD [address] [place] [address] [place] [address] Referral ID Status Reason Start Date Expiration Date V isits Requested Visits Authorized [id number] Closed Auto-Generate d Referral 01/23/2024 02/21/2025 1 1 [facility] Summary Purpose Family History No Family History Records FoundNo Family History Records FoundNo Family History Records FoundNo Family History Records FoundNo Family History Records Found Advance Directives Documents on File Type Date Recorded 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 Advance Directives and Living Will 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 Referral ID Status Reason Start Date Expiration Date V isits Requested Visits Authorized [id number] Closed Auto-Generate d Referral 04/17/2023 04/17/2023 1 1 Specialty Diagnoses / Procedures Referred By Contac t Referred To Contact [facility] Diagnoses Pain in both knees, unspecified chronicity Procedures CONSULT TO PHYSICAL THERAPY PHYSICAL THERAPY EVALUATION HIGH COMPLEX 45 MINS Francesco Diaz MD [address] [place] [address] [facility] [place] [address] [place] [address] Referral ID Status Reason Start Date Expiration Date Visits Requested Visits Authorized [id number] Pending Review Auto-Generat ed Referral 01/23/2024 01/22/2025 1 1 Specialty Diagnoses / Procedures Referred By Contac t Referred To Contact XR IMAGING Diagnoses Pain in both knees, unspecified chronicity Procedures XR KNEE GENERAL 4V AP BOTH/PA BOTH/LAT/MERC BILATERAL RADIOLOGIC EXAM KNEE COMPLETE 4/MORE VIEWS Francesco Diaz MD [address] [place] [address] Xr Imaging [place] [address] Referral ID Status Reason Start Date Expiration Date Visits Requested Visits Authorized [id number] Pending Review Auto-Generat ed Referral 01/23/2024 02/21/2025 1 1 Specialty Diagnoses / Procedures Referred By Contac t Referred To Contact Diagnoses Gastroesophageal reflux disease without esophagitis Class 3 severe obesity with serious comorbidity and body mass index (BMI) of 45.0 to 49.9 in adult, unspecified obesity type (HCC) Procedures CONSULT [facility] OFFICE/OUTPATIENT [facility] 60 MINUTES Sonia Vizcarra APRN.[employer] [address] [place] [address] Referral ID Status Reason Start Date Expiration Date Visits Requested Visits Authorized [id number] Authorized PCP Requested Referral 05/06/2024 05/06/2025 1 1 Chief Complaint and Reason for Visit Chief Complaint Admit Date SCREENING March 10, 2025 2:57pm Chief Complaint Admit Date SCREENING March 10, 2025 2:57pm ADD EGD TO OA SCOPE April 17, 2025 3:04 pm Reason for Visit Admit Date Acid reflux April 17, 2025 3:04 pm Family history of colon cancer in father April 17, 2025 3:04pm Screening for malignant neoplasm of colo n April 17, 2025 3:04pm Additional Source Comments INFORMATION SOURCE (unrecogn ized section and content) DATE CREATED AUTHOR 04/28/2018 [facility] DATE CREATED AUTHOR AUTHOR'S ORGANIZ ATION 08/08/2019 [facility] DATE CREATED AUTHOR AUTHOR'S ORGANIZ ATION 09/16/2019 [facility] DATE CREATED AUTHOR AUTHOR'S ORGANIZ ATION 03/08/2025 [facility] DATE CREATED AUTHOR AUTHOR'S ORGANIZ ATION 04/25/2025 [facility] Source Comments (unrecognize d section and content) In the event this informatio n is protected by the Federal Confidentiality of Alcohol and Drug Abuse Patient Records regulations: The Federal rules restrict any use of the information to criminally investigate or prosecute any alcohol or drug abuse patient.[facility] HospitalIn the event this information is protected by the Federal Confidentiality of Alcohol and Drug Abuse Patient Records regulations: The Federal rules restrict any use of the information to criminally investigate or prosecute any alcohol or drug abuse patient.[facility] HospitalIn the event this information is protected by the Federal Confidentiality of Alcohol and Drug Abuse Patient Records regulations: The Federal rules restrict any use of the information to criminally investigate or prosecute any alcohol or drug abuse patient.[facility] HospitalIn the event this information is protected by the Federal Confidentiality of Alcohol and Drug Abuse Patient Records regulations: The Federal rules restrict any use of the information to criminally investigate or prosecute any alcohol or drug abuse patient.[facility] HospitalIn the event this information is protected by the Federal Confidentiality of Alcohol and Drug Abuse Patient Records regulations: The Federal rules restrict any use of the information to criminally investigate or prosecute any alcohol or drug abuse patient.[facility] HospitalIn the event this information is protected by the Federal Confidentiality of Alcohol and Drug Abuse Patient Records regulations: The Federal rules restrict any use of the information to criminally investigate or prosecute any alcohol or drug abuse patient.[facility] HospitalIn the event this information is protected by the Federal Confidentiality of Alcohol and Drug Abuse Patient Records regulations: The Federal rules restrict any use of the information to criminally investigate or prosecute any alcohol or drug abuse patient.[facility] HospitalIn the event this information is protected by the Federal Confidentiality of Alcohol and Drug Abuse Patient Records regulations: The Federal rules restrict any use of the information to criminally investigate or prosecute any alcohol or drug abuse patient.[facility] HospitalIn the event this information is protected by the Federal Confidentiality of Alcohol and Drug Abuse Patient Records regulations: The Federal rules restrict any use of the information to criminally investigate or prosecute any alcohol or drug abuse patient.[facility] HospitalIn the event this information is protected by the Federal Confidentiality of Alcohol and Drug Abuse Patient Records regulations: The Federal rules restrict any use of the information to criminally investigate or prosecute any alcohol or drug abuse patient.[facility] the event this information is protected by the Federal Confidentiality of Alcohol and Drug Abuse Patient Records regulations: The Federal rules restrict any use of the information to criminally investigate or prosecute any alcohol or drug abuse patient.[facility] the event this information is protected by the Federal Confidentiality of Alcohol and Drug Abuse Patient Records regulations: The Federal rules restrict any use of the information to criminally investigate or prosecute any alcohol or drug abuse patient.[facility] the event this information is protected by the Federal Confidentiality of Alcohol and Drug Abuse Patient Records regulations: The Federal rules restrict any use of the information to criminally investigate or prosecute any alcohol or drug abuse patient.[facility] Hospital[facility] the event this information is protected by the Federal Confidentiality of Alcohol and Drug Abuse Patient Records regulations: The Federal rules restrict any use of the information to criminally investigate or prosecute any alcohol or drug abuse patient.[facility] Reason for Visit (unrecogniz ed section and content) Reason Comments Appointment Reason Comments Results Reason Comments Follow Up Reason Comments Radiology CT Specialty Diagnoses / Procedures Referred By Ivelisse t Referred To Contact CT IMAGING Diagnoses Neck mass Procedures CT NECK SOFT TISSUE W IVCON CT SOFT TISSUE NECK W/CONTRAST MATERIAL Francesco Diaz MD [address] [place] [address] [place] [id number] Referral ID Status Reason Start Date Expiration Date V isits Requested Visits Authorized [id number] Closed Auto-Generate d Referral 04/17/2023 04/17/2023 1 1 Reason Comments Heartburn Bilateral Knee Pain Reason Comments Insurance problem with coding of visit Reason Onset Date Comments Weight Management 05/05/2024 Reason Comments Patient Update Care Teams (unrecognized sec tion and content) Speech Lang Path Relationship Specialty Start Date End Date Francesco Diaz MD [address] [place], [place] [phone] PCP - General Family Medicine 03/25/23 Speech Lang Path Relationship Specialty Start Date End Date Francesco Diaz MD [address] [place], [place] [id number] PCP - General Family Medicine 03/25/23 Speech Lang Path Relationship Specialty Start Date End Date Francesco Diaz MD [address] [place], [place] [phone] PCP - General Family Medicine 03/25/23 Speech Lang Path Relationship Specialty Start Date End Date Francesco Diaz MD [address] [place], [place] [phone] PCP - General Family Medicine 03/25/23 Speech Lang Path Relationship Specialty Start Date End Date Francesco Diaz MD [address] [place] [address] PCP - General Family Medicine 03/25/23 Speech Lang Path Relationship Specialty Start Date End Date Francesco Diaz MD [address] [place] [address] PCP - General Family Medicine 03/25/23 Speech Lang Path Relationship Specialty Start Date End Date Francesco Diaz MD [address] [place] [address] PCP - General Family Medicine 03/25/23 Speech Lang Path Relationship Specialty Start Date End Date Francesco Diaz MD [address] [place] [address] PCP - General Family Medicine 03/25/23 Speech Lang Path Relationship Specialty Start Date End Date Francesco Diaz MD [address] [place] [address] PCP - General Family Medicine 03/25/23 Speech Lang Path Relationship Specialty Start Date End Date Francesco Diaz MD [address] [place] [address] PCP - General Family Medicine 03/25/23 Speech Lang Path Relationship Specialty Start Date End Date Francesco Diaz MD [address] [place] [address] PCP - General Family Medicine 03/25/23 Team Status: Active Member Role Status Dates Beti Ivan MD Primary Care Provider Active Team Status: Inactive Member Role Status Dates Beti Ivan MD Primary Care Provider Active St art: February 06, 2025 End: February 06, 2025 Beti Ivan MD Attending Provider Active Start : February 06, 2025 End: February 06, 2025 Beti Ivan MD Referring Provider Active Start : February 06, 2025 End: February 06, 2025 Speech Lang Path Relationship Specialty [place] [address] [place] [id number] PCP - General Family Medicine 03/25/23 02/05/25 Francesco Diaz MD [address] [place] [id number] PCP - General Family Medicine 02/06/25 Yajaira Guy APRN.[facility] [address] [place] [phone] [facility] 10/08/24 Juany Whipple PA-C [address] [place] [address] [id number] [facility] 10/08/24 Team Status: Inactive Member Role Status Gerardo Ivan MD Primary Care Provider Active St art: March 10, 2025 End: March 10, 2025 Beti Ivan MD Attending Provider Active Start : March 10, 2025 End: March 10, 2025 Beti Ivan MD Referring Provider Active Start : March 10, 2025 End: March 10, 2025 Team Status: Inactive Member Role Status Gerardo Ivan MD Primary Care Provider Active St art: March 23, 2025 End: March 23, 2025 Beti Ivan MD Attending Provider Active Start : March 23, 2025 End: March 23, 2025 Beti Ivan MD Referring Provider Active Start : March 23, 2025 End: March 23, 2025 Team Status: Inactive Member Role Status Gerardo Ivan MD Primary Care Provider Active St art: April 17, 2025 End: April 17, 2025 Beti Ivan MD Referring Provider Active Start : April 17, 2025 End: April 17, 2025 Dr. Caryn Chao MD Attending Provider Active Start: April 17, 2025 End: April 17, 2025 Team Status: Inactive Member Role Status Dates Beti Ivan MD Primary Care Provider Active St art: April 19, 2025 End: April 19, 2025 Beti Ivan MD Attending Provider Active Start : April 19, 2025 End: April 19, 2025 Beti Ivan MD Referring Provider Active Start : April 19, 2025 End: April 19, 2025 Goals (unrecognized section and content) Goals may be documented in a n alternate sectionGoals may be documented in an alternate sectionGoals may be documented in an alternate sectionGoals may be documented in an alternate sectionGoals may be documented in an alternate section FOR RECORDS PERTAINING TO PATIENTS WHO ARE OR HAVE BEEN ENROLLED IN A CHEMICAL DEPENDENCY/SUBSTANCEABUSE PROGRAM, SOME INFORMATION MAY BE OMITTED. This clinical summary was aggregated from multiple sources. Caution should be exercised in using it in the provision of clinical care. This summary normalizes information from multiple sources, and as a consequence, information in this document may materially change the coding, format and clinical context of patient data. In addition, data may be omitted in some cases. CLINICAL DECISIONS SHOULD BE BASED ON THE PRIMARY CLINICAL RECORDS. [facility] [employer] [facility]. provides no warranty or guarantee of the accuracy or completeness of information in this document.
[2025-04-26] MEDS: Lactated Ringers 1,000 ML 15 ML IV (08:01)
--- NOTE | 2025-04-26 08:04 | PCM.HP.BLA ---
History and Physical Date of Admission: 04/26/25 Date of Service: 04/17/25 MR#: [id number] Acct: [id number] Name: MOE KOO Rep #: [id number] : 1970 Provider: Dr. 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 Caryn Chao MD) Obesity LLQ abdominal pain Acid reflux Kidney stones Surgical History (Updated 04/17/25 @ 15:19 by Leanna Van) History of umbilical hernia repair S/P partial hysterectomy Social History (Updated 04/17/25 @ 15:19 by Leanna Van) Smoking Status: Never smoker alcohol intake: never HPI HPI HPI: 54-year-old female presents for EGD and colonoscopy. Patient states she has been on Protonix for the last 4 months denies any symptoms with that but before then was having burning up her esophagus. Patient has bowel movements daily denies any blood. Patient never had previous scope. Patient states she does get occasional left lower quadrant discomfort about once a week but describes it as a cramp that quickly resolves. Patient's dad did have colon cancer metastatic when found in his 70s, patient's dad also had prostate cancer, patient's mom had pancreatic cancer ROS General General: Yes weight change; No appetite, fatigue, colon cancer or breast cancer HEENT HEENT: Yes swollen glands; No difficulty swallowing, eye injury, eye surgery or hoarseness Endo Endocrine: No thyroid disease, diabetes mellitus, thyroid cancer, Hair loss, heat intolerance or cold intolerance Skin Skin: No rash or changing moles Musc Musculoskeletal: No back problems, arthritis, rheumatoid arthritis, gout or joint pain Cardio Cardiovascular: No murmur, pacemaker, heart disease, atrial fibrillation, high blood pressure, heart attack, heart stent, palpitations, shortness of breath with exertion or chest pain Psych Psychiatric: No depression, anxiety or hearing voices Resp Respiratory: No shortness of breath, No sleep apnea, No cough, No COPD, No asthma, No emphysema and No wheezing Gastro Gastrointestinal: Yes abdominal pain, No nausea or vomiting, No diarrhea, No constipation, No blood in stool, Yes acid reflux, No hemorrhoids, No ulcers, No gallbladder problem and No black,tarry stools Earl Hematologic: No blood thinners, No blood disorders, No bleeding, No anemia and No blood clots Neuro Neurologic: No numbness and No tingling Exam Const General: cooperative, healthy appearing, comfortable and no acute distress HENMT Head: normocephalic and atraumatic Neck Neck: supple Resp Effort & Inspection: normal respiratory effort Cardio Rate: regular rate GI Inspection: non-distended Palpation: soft, no hernias and nontender Skin General: no rashes or lesions noted Neuro General: CN's II-XI intact bilaterally Extrem General: normal to inspection Psych Mental Status: mental status grossly normal Attitude: cooperative Assessment and Plan Assessment and Plan (1) Acid reflux: Status: Acute (2) Screening for malignant neoplasm of colon: Status: Acute (3) Family history of colon cancer in father: Status: Acute Plan Discussed with patient due to her family history of colon cancer we will plan for repeat colonoscopy in 5 years or less depending on initial colonoscopy. I have discussed the above with the patient. I have offered the patient esophagogastroduodenoscopy and colonoscopy for evaluation. I have explained the risks/benefits of the procedure and described the procedure. I have discussed the risks with the patient, including but not limited to: infection, bleeding, perforation of the GI tract requiring emergency surgery, inability to complete the procedure, injury to any internal organs, complications of anesthesia, etc. - the patient understands and agrees to proceed. I have answered all the patient's questions to the patient's satisfaction and the patient has no further questions. The patient has been given instructions for the colon cleansing preparation. 1 day of clears, MiraLAX Dulcolax prep. Caryn Chao M.D. Pager: [phone] [facility] [address] [place] [address], [facility], [address] [place] [address] Office: [phone] Coding Level of Care Code Off vis,new,level 3 Diagnoses Acid reflux K21.9 Screening for malignant neoplasm of colon Z12.11 Family history of colon cancer in father Z80.0 Clinical Quality Measures Falls Risk Screening/Assistive Devices Have you fallen in the past year?: No 04/19/25 0832 <Electronically signed by Caryn Chao MD> Date Caryn Chao MD
--- NOTE | 2025-04-26 08:09 | PRE.ANES_ITS ---
ASA Classification* ASA Classification ASA Classification: 3 (BMI 49, GERD. Please use non-rebreather mask, ensure end- tidal monitoring to avoid hypercarbia. ) Assessment & Plan Anesthesia* Anesthesia Assessment Anesthesia Assessment: Discussed sedation and/or anesthesia options, risks, benefits, and alternatives with patient/parents/legal guardian/POA. Questions invited. The patient/parents/legal guardian/POA seems to understand and agrees to proceed with anesthesia plan. Reviewed the physical assessment, medical history, allergy history and patient home medications list prior to surgery/procedure/anesthetic and documented any changes. Performed airway and anesthesia risk assessments. Anesthesia Type Anesthesia Type: MAC History Source History Obtained from:: Patient and Chart Anesthesia Focused Assessment* Temperature: 97.6 F Pulse Rate: 67 Blood Pressure: 146/78 Respiratory Rate: 17 Pulse Ox: 98 Oxygen Delivery Method: Room Air Airway Assessment Mouth opens: 2 cm Mallampati Score: IV Teeth Condition: Intact Neck Range of motion (ROM): Full ROM Labs Anesthesia Preop lab: CBC WBC 8.6 K/mm3 (4.4-11.0) 02/06/25 16:02/06/25 RBC 5.13 M/mm3 (4.2-5.4) 02/06/25 16:02/06/25 Hgb 14.3 g/dL (12.0-15.0) 02/06/25 16:02/06/25 Hct 44.4 % (37-47) 02/06/25 16:02/06/25 Plt Count 341 K/mm3 (150-450) 02/06/25 16:02/06/25 CHEMISTRY Potassium 3.8 mmol/L (3.3-5.1) 02/06/25 16:02/06/25 Sodium 138 mmol/L (133-145) 02/06/25 16:02/06/25 BUN 12 mg/dL (4-19) 02/06/25 16:02/06/25 Creatinine 0.64 mg/dL (0.70-1.20) L 02/06/25 16: Glucose 81 mg/dL (70-99) 02/06/25 16:02/06/25 TSH 2.620 uIU/mL (0.300-4.200) 02/06/25 16:29 04/0 05/26 COAG Pre-Assessment Diagnosis/Proposed Procedure Planned Operative Procedure(s): cscope, egd Anesthesia History 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 When Was Last Pacemaker Check QUESTION #4 FULL TEXT: You/Your Family Experience fever (hyperthermia) with Anesthesia Last Oral Intake Last Oral intake: Last Oral Intake NPO since 00:00 04/26/25 07:57 Meds taken in AM with sips of No 04/26/25 07:57 water? Meds patient instructed to take am of surgery PONV PONV - data processing auditor: PONV - data processing auditor Female Yes 04/24/25 14:48 HX of Motion Sickness No 04/24/25 14:48 HX of N/V After Surgery No 04/24/25 14:48 Non-Smoker Yes 04/24/25 14:48 Duration of Surgery greater No 04/24/25 14:48 than 60 minutes Number of Risk Factors 2 04/24/25 14:48 PONV Score Moderate Risk 04/24/25 14:48 Height & Weight Height & Weight: Anesthesia: Height & Weight Height 5 ft 3 in 04/26/25 07:57 Weight: 125 kg 04/26/25 07:57 Body Mass Index (BMI) 48.8 04/26/25 07:57 Respiratory Assessment Respiratory Assessment - data processing auditor: Respiratory Tract Infection Hx - data processing auditor Hx Respiratory Tract Infection No 04/24/25 14:48 STOP Sleep Apnea STOP Sleep Apnea - data processing auditor: STOP Sleep Apnea - data processing auditor Hx Hypertension No 04/24/25 14:48 Hx Sleep Apnea No 04/24/25 14:48 CPAP BIPAP Do you snore loudly (louder No 04/24/25 14:48 than talking or can be heard Do you often feel tired/ No 04/24/25 14:48 fatigued/ sleepy during daytime? Has anyone observed you stop No 04/24/25 14:48 breathing during sleep? STOP Results Negative 04/24/25 14:48 QUESTION #5 FULL TEXT : Do you snore loudly (louder than talking or can be heard through closed doors)? 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 Specify any problems Hx of Preganancy in last 3 N/A 04/24/25 14:48 Months Nurse Filling Out Transfusion NBUCHER 04/24/25 14:48 & Questions: Date: 04/24/25 04/24/25 14:48 Time: 14:49 04/24/25 14:48 Patient unable to answer at this time (ie. confused, unrespo /Reproduction History /Reproductive History - data processing auditor: /Reproductive Hx- data processing auditor Hx Now No 04/24/25 14:48 Gestational Age (in weeks): EDC: Hx Hx Para Hx Section SAB No 04/24/25 14:48 Active Medications Active Medications: Current Medications Generic Name Dose Route Start Last Admin Trade Name Freq PRN Reason Stop Dose Admin Lactated Ringer's 1,000 mls @ 15 mls/hr 04/26/25 07:45 04/26/25 08:01 IV 15 mls/hr .Q48H INGRIS Administration PFSH Medical History (Updated 04/24/25 @ 14:54 by Lacy Villalobos) Wears glasses Wears partial dentures History of edema Non-smoker Obesity LLQ abdominal pain Acid reflux Kidney stones Home Medications ?Medication ?Instructions ?Recorded ?Last Taken ?Type cholecalciferol (vitamin D3) 250 250 mcg PO QDAY 04/1704/25/25 History mcg (10,000 unit) capsule pantoprazole 40 mg tablet,delayed 40 mg PO QDAY 04/25/25 History release phentermine 37.5 mg tablet 37.5 mg PO QDAY 04/17/25 History Allergy/AdvReac Type Severity Reaction Status Date / Time animal dander Allergy Mild Other Verified 04/26/25 07:56 Surgical History (Updated 04/24/25 @ 14:54 by Lacy Villalobos) History of foot surgery (~1999) History of umbilical hernia repair S/P partial hysterectomy Social History (Updated 04/17/25 @ 15:19 by Leanna Van) Smoking Status: Never smoker alcohol intake: never Review of Systems (Anesthesia) ROS Narrative System reviewed and no additional complaints, except as documented. Physical Exam Const alert and oriented x3 Nutritional Appearance: morbidly obese Resp normal respiratory effort, normal air movement and clear to auscultation bilate rally Cardio regular rate, regular rhythm, no murmurs and diaphoretic
--- NOTE | 2025-04-26 08:45 | EGD_PTH ---
PATIENT: MOE KOO LOC: EN U#:[id number] AGE/SX: 54/F ROOM: RE04/26/[address]: Dr. Caryn Chao MD : 1970 BED: DIS: 04/26/2025 SPEC #: [id number] RECD: 04/26/25 11:06 STATUS: FEMI REBrittney #: [id number] ELMER: 04/26/25 08:[address]: Caryn Chao DEPT: SURGICAL PATHOLOGY RECD BY: Junaid Thomas ENTERED: 04/26/25 13:17 SP TYPE: EGD BIOPSY OTHR DR: Beti Ivan MD Tissues: A - Gastric mucous membrane B - Esophagus, NOS Procedures: Immunohistochemical Stains Surgery Specimen Level IV HEADER OPERATION: Colonoscopy, EGD with biopsy PRE-OP DIAGNOSIS: Acid reflux, screening for malignant neoplasm of colon, family history of colon cancer in father TISSUE SUBMITTED: A- Antrum biopsy, B- Lower esophagus biopsy abnormal mucosa MICROSCOPIC DIAGNOSIS A. Antrum, biopsy: - Benign oxyntic mucosa with slight chronic inflammation - An immunohistochemical stain for Helicobacter pylori is negative B. Lower esophagus, abnormal mucosa, biopsy: * Benign squamous epithelium without active inflammation or eosinophilia * No gastric mucosa is identified COMMENT Preliminary results were called to Dr. Chao's cell phone and recorded in [employer] - Financial Reconciliation on 05/03/2025 at 09:22H. MICROSCOPIC DESCRIPTION Slides are reviewed. All matched controls reacted appropriately. These tests were developed and their performance characteristics determined by [facility]. They may not have been cleared or approved by the U.S. Food and Drug Administration. The FDA has determined that such clearance or approval is not necessary. The above immunohistochemical/dualISH markers are viewed by the Pathologist. GROSS DESCRIPTION A. Received in fixative is one container labeled with the patient's name and designated Antrum biopsy. The specimen consists of one irregular fragment of light sánchez soft tissue that measures 0.5 cm. The specimen is totally submitted in one cassette. B. Received in fixative is one container labeled with the patient's name and designated Lower esophagus biopsy - abnormal mucosa. The specimen consists of one irregular fragment of light sánchez soft tissue that measures 0.5 cm. The specimen is totally submitted in one cassette. Irasema 04/26/2025 CPT:[id number] ,[id number]
--- NOTE | 2025-04-26 09:21 | OP.EGD_ITS ---
Patient Name: Adilene Murphy Procedure Date: 04/26/2025 8:46 AM Date of : 1970 Age: 54 Procedure: Upper GI endoscopy Indications: Heartburn Providers: Caryn Chao MD Referring MD: Beti Ivan Md Medicines: Monitored Anesthesia Care Patient Profile: This is a 54 year old female. Complications: No immediate complications. Procedure: Pre-Anesthesia Assessment: - Prior to the procedure, a History and Physical was performed, and patient medications and allergies were reviewed. The patient's tolerance of previous anesthesia was also reviewed. The risks and benefits of the procedure and the sedation options and risks were discussed with the patient. All questions were answered, and informed consent was obtained. Prior Anticoagulants: The patient has taken no anticoagulant or antiplatelet agents. ASA Grade Assessment: Per anesthesia. After reviewing the risks and benefits, the patient was deemed in satisfactory condition to undergo the procedure. After obtaining informed consent, the endoscope was passed under direct vision. Throughout the procedure, the patient's blood pressure, pulse, and oxygen saturations were monitored continuously. The was introduced through the mouth, and advanced to the second part of duodenum. The upper GI endoscopy was accomplished without difficulty. The patient tolerated the procedure well. Scope In: 8:55:48 AM Scope Out: 9:00:32 AM Total Procedure Duration Time 0 hours 4 minutes 44 seconds Findings: The Z-line was variable and was found 40 cm from the incisors. Mild mucosal changes characterized by inflammation were found in the lower third of the esophagus. Biopsies were taken with a cold forceps for histology. Biopsies were taken with a cold forceps for histology. Mildly erythematous mucosa without bleeding was found in the gastric antrum. Biopsies were taken with a cold forceps for histology. Biopsies were taken with a cold forceps for Helicobacter pylori cultures. The examined duodenum was normal. The cardia and gastric fundus were normal on retroflexion. Impression: - Z-line variable, 40 cm from the incisors. - Inflamed mucosa in the esophagus. Biopsied. - Erythematous mucosa in the antrum. Biopsied. - Normal examined duodenum. Recommendation: - Await pathology results. - Discharge patient to home. - Resume previous diet. - Continue present medications. Procedure Code(s): --- Professional --- 77961, Esophagogastroduodenoscopy, flexible, transoral; with biopsy, single or multiple Diagnosis Code(s): --- Professional --- K22.89, Other specified disease of esophagus K20.90, Esophagitis, unspecified without bleeding K31.89, Other diseases of stomach and duodenum R12, Heartburn CPT copyright 2021 [employer]. All rights reserved. The codes documented in this report are preliminary and upon director information review may be revised to meet current compliance requirements. MD Caryn Barnett MD 04/26/2025 9:20:39 AM This report has been signed electronically. Number of Addenda: 0 Note Initiated On: 04/26/2025 8:46 AM
--- NOTE | 2025-04-26 09:21 | OP.CCLET_ITS ---
04/26/2025 Beti Ivan Md Re : Upper GI endoscopy procedure for Adilene Murphy Dear Marzena This procedure was performed on Saturday, April 26, 2025. My impressions and recommendations are as follows: Impressions : - Z-line variable, 40 cm from the incisors. - Inflamed mucosa in the esophagus. Biopsied. - Erythematous mucosa in the antrum. Biopsied. - Normal examined duodenum. Recommendations : - Await pathology results. - Discharge patient to home. - Resume previous diet. - Continue present medications. My findings are described in the full procedure note, which is enclosed. If I can be of further assistance, please feel free to contact me at Doctor phone number(s): , Work: . Sincerely, MD Caryn Barnett MD 04/26/2025 9:20:39 AM This report has been signed electronically.
--- NOTE | 2025-04-26 09:22 | PCM.POST.ANE ---
Anesthesia: Postop Eval I Current Vital Signs Temperature: 97.5 F Pulse Rate: 64 Blood Pressure: 135/78 Respiratory Rate: 20 Pulse Ox: 97 Assessment Airway patent: Yes Spontaneous unlabored respirations: Yes nausea: No Vomiting: No Anesthesia Complication: No Fluid Hydration Crystalloid volume administer (ml): 300 Total IV fluid infused: 300 Progress Note Anesthesia document: Postop Eval 1 completed: Yes
--- NOTE | 2025-04-26 09:25 | OP.COLON_ITS ---
Patient Name: Adilene Murphy Procedure Date: 04/26/2025 9:00 AM Date of : 1970 Age: 54 Procedure: Colonoscopy Indications: Family history of colon cancer, Family history of pancreatic cancer in a first-degree relative, Family history of prostate cancer in a first-degree relative, Father with metastatic colon cancer in mid 70s Providers: Caryn Chao MD Referring MD: Beti Ivan Md Medicines: Monitored Anesthesia Care Patient Profile: This is a 54 year old female. Last Colonoscopy: none. The patient's first colonoscopy is today. Complications: No immediate complications. Procedure: Pre-Anesthesia Assessment: - Prior to the procedure, a History and Physical was performed, and patient medications and allergies were reviewed. The patient's tolerance of previous anesthesia was also reviewed. The risks and benefits of the procedure and the sedation options and risks were discussed with the patient. All questions were answered, and informed consent was obtained. Prior Anticoagulants: The patient has taken no anticoagulant or antiplatelet agents. ASA Grade Assessment: Per anesthesia. After reviewing the risks and benefits, the patient was deemed in satisfactory condition to undergo the procedure. After I obtained informed consent, the scope was passed under direct vision. Throughout the procedure, the patient's blood pressure, pulse, and oxygen saturations were monitored continuously. The was introduced through the anus and advanced to the cecum, identified by appendiceal orifice and ileocecal valve. The colonoscopy was performed without difficulty. The patient tolerated the procedure well. The quality of the bowel preparation was good. Scope In: 9:01:29 AM Scope Withdrawal Time 0 hours 9 minutes 3 seconds Scope Out: 9:13:25 AM Total Procedure Duration Time 0 hours 11 minutes 56 seconds Findings: Hemorrhoids were found on perianal exam. Non-bleeding internal hemorrhoids were found. The hemorrhoids were Grade I (internal hemorrhoids that do not prolapse). The entire examined colon appeared normal. Impression: - Hemorrhoids found on perianal exam. - Non-bleeding internal hemorrhoids. - The entire examined colon is normal. - No specimens collected. Recommendation: - Discharge patient to home. - Resume previous diet. - Continue present medications. - Repeat colonoscopy in 5 years for screening purposes. Procedure Code(s): --- Professional --- 09644, PT, Colonoscopy, flexible; diagnostic, including collection of specimen(s) by brushing or washing, when performed (separate procedure) Diagnosis Code(s): --- Professional --- K64.0, First degree hemorrhoids Z80.0, Family history of malignant neoplasm of digestive organs Z80.42, Family history of malignant neoplasm of prostate CPT copyright 2021 [employer]. All rights reserved. The codes documented in this report are preliminary and upon dry goods inspector review may be revised to meet current compliance requirements. MD Caryn Barnett MD 04/26/2025 9:25:05 AM This report has been signed electronically. Number of Addenda: 0 Note Initiated On: 04/26/2025 9:00 AM
--- NOTE | 2025-04-26 09:26 | OP.CCLET_ITS ---
04/26/2025 Beti Ivan Md Re : Colonoscopy procedure for Adilene Murphy Dear Marzena This procedure was performed on Saturday, April 26, 2025. My impressions and recommendations are as follows: Impressions : - Hemorrhoids found on perianal exam. - Non-bleeding internal hemorrhoids. - The entire examined colon is normal. - No specimens collected. Recommendations : - Discharge patient to home. - Resume previous diet. - Continue present medications. - Repeat colonoscopy in 5 years for screening purposes. My findings are described in the full procedure note, which is enclosed. If I can be of further assistance, please feel free to contact me at Doctor phone number(s): , Work: . Sincerely, MD Caryn Barnett MD 04/26/2025 9:25:05 AM This report has been signed electronically.
--- NOTE | 2025-04-26 10:01 | POSTOPAN2_ITS ---
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CSIR Anesthesia Complication Comment: Post-operative progress note Anesthesia: Postop Eval II Evaluation Mental status: Awake Pain Level: 0 nausea: No Vomiting: No
--- NOTE | 2025-04-26 10:01 | PCM.POSTANE2 ---
Anesthesia Postop Eval I Sum Postop Eval Completion status Anesthesia document: Postop Eval 1 completed: Yes Anesthesia Postop Eval I Summary Anesthesia Postop Eval I Summary: Anesthesia Postop Eval I: Assessment Summary Airway patent Yes 04/26/25 09:22 BROADCAST [email or web address].[email or web address] Spontaneous unlabored Yes 04/26/25 09:22 BROADCAST CHECKER.CSIR respirations Mental status nausea No 04/26/25 09:22 BROADCAST CHECKER.CSIR Vomiting No 04/26/25 09:22 BROADCAST CHECKER.CSIR Anesthesia Postop Eval I: Fluid Summary Crystalloid volume administer 300 04/26/25 09:22 BROADCAST CHECKER.CSIR (ml) Colloids volume administered ( ml) Blood Product volume administered (ml) Total IV fluid infused 300 04/26/25 09:22 BROADCAST CHECKER.CSIR Anesthesia Postop Eval I: Summary Notes Anesthesia Complication No 04/26/25 09:22 BROADCAST CHECKER.CSIR Anesthesia Complication Comment: Post-operative progress note Anesthesia: Postop Eval II Evaluation Mental status: Awake Pain Level: 0 nausea: No Vomiting: No
== END 2025-04-26 10:03 | disposition home or self-care (01) ==
LOC: EN 07:23 → AC 07:24
PROVIDERS: PCP Family Medicine; Referring Provider Family Medicine; Visit Provider Surgery
PROC: 0DJD8ZZ Inspection of Lower Intestinal Tract, Via Natural or Artificial Opening Endoscopic (ICD-10-PCS; CPT 45378; principal; 2025-04-26 08:40)
DX: Z12.11 Encounter for screening for malignant neoplasm of colon (principal); K31.89 Other diseases of stomach and duodenum; K64.0 First degree hemorrhoids; K22.89 Other specified disease of esophagus; Z80.0 Family history of malignant neoplasm of digestive organs; Z80.42 Family history of malignant neoplasm of prostate; Z87.442 Personal history of urinary calculi; Z90.710 Acquired absence of both cervix and uterus; K21.00 Gastro-esophageal reflux disease with esophagitis, without bleeding
CPT/HCPCS: 45378; 43239; 88305; 88342; J2405

== ENCOUNTER → 2025-07-07 | Outpatient (CLI) | payer BC, SELFPAY ==
[2025-07-07 15:34] LABS: Hematocrit 44.1 % (37-47); Hemoglobin 13.9 g/dL (12.0-15.0); Immature Granulocytes Count 0.020 X10^3/uL (0.0-0.0); Mean Corp Hgb Conc 31.5 g/dL (32-36); Mean Corpuscular Volume 87.5 fL (81-99); Mean Platelet Vol. 10.3 fl (6.2-12.0); NRBC Flagged by Analyzer 0 % (0-5); Platelet Count 333 K/mm3 (150-450); RBC Distribution Width CV 13.4 % (11.6-14.6); RBC Distribution Width SD 42.9 fl (35.1-43.9); Red Blood Count 5.04 M/mm3 (4.2-5.4); White Blood Count 9.2 K/mm3 (4.4-11.0)
[2025-07-07 15:47] LABS: AST(SGOT) 15 U/L (<=31); Alanine Aminotransfer ALT/SGPT 16 U/L (<=34); Albumin, Serum 4.1 g/dL (3.5-5.0); Alkaline Phosphatase 83 U/L (35-104); Anion Gap 10 (5-15); BUN 14 mg/dL (4-19); BUN/Creat Ratio 22.0 RATIO (10-20); Calcium,Total 9.5 mg/dL (7.6-11.0); Carbon Dioxide 24.8 mmol/L (21.0-32.0); Chloride 103 mmol/L (98-108); Globulin 3.4 g/dL (2.2-4.2); Glucose 85 mg/dL (70-99); Potassium 4.4 mmol/L (3.3-5.1)
== END | disposition home or self-care (01) ==
LOC: MFPLAB 13:42
PROVIDERS: PCP Family Medicine
DX: R42 Dizziness and giddiness (principal)
CPT/HCPCS: 36415; 80053; 85025